=== PATIENT | male | born 1980 | race Caucasian/White ===

== ENCOUNTER → 2020-06-20 10:36 | Outpatient (CLI) | payer OTHER, SELFPAY ==
--- NOTE | 2020-06-20 11:20 | MR_ITS ---
PROCEDURE: MR PELVIS W CON CLINICAL INDICATION: INFLAMMATORY ARTHROPATHY PT STATES HE HAS RHEUMATOID ARTHRITIS, SWELLING IN LOWER BACK. BEST IMAGES POSSIBLE VERY LARGE PATIENT 30ML PROHANCE INJECTED COMPARISON: No exams were available for comparison TECHNIQUE: Routine multiplanar multi echo sequences are performed without and with gadolinium enhancement. FINDINGS: The exam is performed with emphasis on the SI joints. The SI joints have an unremarkable appearance. No lytic or blastic change is evident. No abnormal areas of enhancement. No evidence of SI fusion. No abnormal enhancement of the sacroiliac joints. No fracture apparent. No adjacent pre sacral masses. IMPRESSION: Negative MRI of the SI joints without and with contrast Dictated by: Davin Romo MD 06/21/2020 09:24 Davin Romo MD in [place] 06/21/2020 09:24
== END ==
PROVIDERS: PCP Family Medicine; Visit Provider Internal Medicine
DX: M19.90 Unspecified osteoarthritis, unspecified site (principal); M54.5 Low back pain
CPT/HCPCS: 72196; A9576

== ENCOUNTER → 2020-07-05 14:20 | Outpatient (POV) | payer OTHER, SELFPAY ==
[2020-07-05 15:15] VITALS: BP 152/108; PULSE 87; RESP 22; TEMP 36.8; O2SAT 97; BMI 49.2
--- NOTE | 2020-07-05 16:19 | HMH.PMCON ---
Assessment and Plan (1) Rheumatoid arthritis Current visit: Yes Status: Chronic Category: Medical Code(s): M06.9 - Rheumatoid arthritis, unspecified - Assessment and plan all Dx Assessment and Plan for all problems:: Unfortunately, the patient I did discuss that we will not be able to provide any type of oral medications. The patient does not feel injective therapy would be beneficial to him as his pain is not primarily in his spine. I do not feel that implanted devices would be beneficial to his pain. I did discuss the plan of care with Dr. Quinones, and he is in agreement that we are unable to provide any type of oral medications at this time. I have discussed the options with the patient of possible oral medications with other pain management clinics. Patient has been advised he can contact the clinic if he does develop pain primarily from his spine. He is in agreement. Will discuss possible oral opiate options with his primary care provider and get a referral to possible pain management centers in [facility]. The patient and I specifically discussed risk factors for COVID19. These risks include, but are not limited to age greater than 60, heart or lung disease, diabetes, immunosuppression, and travel. We also discussed NSAIDs may worsen COVID19 infection or symptoms. Patient should not use NSAIDs to treat COVID19 signs or symptoms. Patient was also informed that any type of corticosteroid of any form (oral or injection) will decrease the patient's immune system response and may increase the likelihood of COVID19 infection and symptoms[address] Dr. Quinones has reviewed this note and agrees with this plan of care. This note was dictated using voice recognition software and make contain errors or omissions. HPI - Data of Consult Patient: new to practice Consult date: 07/05/20 Requesting Physician: Tanisha Munoz APRN Primary Care Provider: Nacho Bronson MD - Consult Narrative Reason for consult: Rheumatoid arthritis History of present illness: Mr. Milton is a 39 year old male presents today for consultation for rheumatoid arthritis. Patient has chronic pain throughout his entire body. He is followed by [facility]. Patient says that he has tried multiple modalities of therapy which include physical therapy along with different types of anti-inflammatories. Patient says he is taken Celebrex at this time with no relief. He is tried meloxicam which caused him to has severe nausea and vomiting. He is also tried methotrexate for which she is taking at this time. Patient says he has taken anti-inflammatories in the past which caused him to have GI bleeding as well as bleeding from his orbital areas. Patient says that he has pain so severe that he is unable to wear clothing most days due to the pain. He rates his pain an 8 out of 10 to his entire body. He says that his pain is not in his spine but rather the rest of his body. Patient says movement does not change the pain. He describes the pain as aching, throbbing and constant. CC: Tanisha Munoz APRN [facility] History I have reviewed the patient's past medical history: Yes Medical History: Reports:: Hypertension Denies:: Cancer, Diabetes Mellitus Type 1, Diabetes Mellitus Type 2, MRSA *Have you ever received a pneumonia vaccine?: No *Have you received a flu vaccine this season?: No Other Medical History: Reports: Arthritis (rheumatoid) Laterality Cases: Left: Other Other Surgeries: Yes: Cholecystectomy Amputation: No Fractures: Yes (left leg) - *Social History Last grade of school completed: High school graduate Smoking Status: Current every day smoker Tobacco Type: cigarettes # Packs/Day (cigarettes): 1 Alcohol Intake: never Alcohol Intake Frequency:: holidays/special occasions only *Occupational Status:: unemployed Housing: house Household Members: family *Travel in the last 8 weeks: None Family Hx:: Asthma, Hypertension, Diabetes, Hyperlipidemia, Stroke,
== END ==
PROVIDERS: PCP Family Medicine; Visit Provider Clinical Nurse Specialist Family Health
DX: M06.9 Rheumatoid arthritis, unspecified (principal)
CPT/HCPCS: 99202

== ENCOUNTER 2020-08-25 09:50 | Emergency (ER) | payer OTHER, SELFPAY ==
[2020-08-25] VITALS (7 sets, daily range): BP systolic 125–179; BP diastolic 84–114; PULSE 77–102; RESP 18–24; TEMP 36.6–37; O2SAT 93–98; BMI 47.2
--- NOTE | 2020-08-25 09:43 | ECG_ITS ---
APPROVED REPORT Exam: Resting ECG HR:95 bpm ECG Measurements Heart Rate 95 AXES NV 152 P 46 QRSd 86 QRS 28 QT 336 T 63 QTc 422 Conclusion Normal sinus rhythm Normal ECG Electronically signed by : Luis Albarran, 08/26/2020 06:26:11
--- NOTE | 2020-08-25 09:52 | CT_ITS ---
PROCEDURE: CT ANGIO CHEST CLINCIAL INDICATION: chest pain /back pain Elevated white blood cell count COMPARISON: CT CHW CT CHEST W/ CONTRAST from 01/01/2015 CR XR CHEST PORTABLE from 08/25/2020 TECHNIQUE: IV Contrast: 70ML Isovue 370 Axial images obtained with sagittal and coronal reformats. All CT scans at the facility use one or more dose reduction, viz: automated exposure control, ma/kV adjustment per patient size (including targeted exams where dose is matched to indication, i.e. head), or iterative reconstruction technique. FINDINGS: HEART AND MEDIASTINAL STRUCTURES: No evidence of aortic dissection or aneurysm. No central pulmonary embolus. There is minimal ectasia of the main pulmonary artery at 3 cm. LUNGS AND PLEURAL SPACES: There is some minimal atelectatic change in the right lower lobe. No lobar consolidation or collapse. There is a noncalcified nodule in the right upper lobe at 6 mm not significantly changed. The. No pleural effusions.. Left hemidiaphragm is slightly elevated BONY STRUCTURES: No acute bony findings UPPER ABDOMEN: Fatty liver. Prior cholecystectomy. ADDITIONAL FINDINGS: No other significant abnormalities. IMPRESSION: 1. No acute finding. No evidence of aortic aneurysm dissection or central pulmonary embolus. 2. Mild right lower lobe atelectasis. Dictated by: Davin Romo MD 08/25/2020 11:13 Davin Romo MD in [place] 08/25/2020 11:13
--- NOTE | 2020-08-25 09:57 | HMH.EDCP ---
ED Disposition Clinical Impression: Rheumatoid arthritis flare, Pleuritic chest pain Cellulitis Qualifiers: Site of cellulitis: trunk Site of cellulitis of trunk: back Qualified Code(s): L03.312 - Cellulitis of back [any part except buttock] Disposition: Home, Self-Care Condition on Discharge: Good Prescriptions: Sulfamethoxazole/Trimethoprim [Bactrim DS tablet] 1 each PO BID 5 Days #10 tab Transmission Status: Pending to [facility] cephALEXin [Cephalexin 500mg Tab] 500 mg PO Q6H 5 Days #20 tab [facility]: [facility] predniSONE [Prednisone 20mg Tab] 20 mg PO DAILY 4 Days #4 tab Transmission Status: [facility] Referrals: PCP,No [Primary Care Provider] - - Critical Care Critical Care Time: No Attestation: On 08/25/20, the high probability of a clinically significant, sudden or life threatening deterioration of the following system(s) required my full and direct attention, intervention and personal management. The time I documented below is in addition to time spent performing reported procedures but includes the following listed in this critical care notation. Medical Decision Making - Medical Records Medical records reviewed: Yes: I reviewed the patient's medical records. MR Comment: Rheumatoid arthritis with hx of chronic pain on celebrex seen in pain clinic last month. Also recently started on methotrexate two months ago and course of prednisone last week. - Perry Inquiry Pt receiving controlled substance: No Vital Signs: 08/25/20 09:52 08/25/20 10:06 08/25/20 11:27 Temperature 98.6 F Temperature Source Oral Pulse Rate [Radial] 102 H 92 H 83 Respiratory Rate 24 22 Blood Pressure [Right Arm] 179/114 H 143/111 H 148/84 H Blood Pressure Mean [Right Arm] 135 121 105 Blood Pressure Source [Right Arm] Automatic Cuff Automatic Cuff Blood Pressure Position [Right Arm] Sitting Sitting Sitting 02 Sat by Pulse Oximetry 98 94 L 93 L Oxygen Delivery Method Room Air Room Air Room Air 08/25/20 12:00 08/25/20 13:11 08/25/20 13:53 Temperature Temperature Source Pulse Rate [Radial] 77 81 81 Respiratory Rate Blood Pressure [Right Arm] 161/90 H 125/84 133/86 Blood Pressure Mean [Right Arm] 113 97 101 Blood Pressure Source [Right Arm] Automatic Cuff Automatic Cuff Automatic Cuff Blood Pressure Position [Right Arm] Sitting Sitting Sitting 02 Sat by Pulse Oximetry 93 L 93 L 94 L Oxygen Delivery Method Room Air Room Air Room Air - Lab Data Lab Results 08/25/20 09:35: Total Bilirubin 0.4, Direct Bilirubin 0.1, Conjugated Bilirubin 0.0, Indirect Bilirubin 0.3, Unconjugated Bilirubin 0.3, AST 44, ALT 70, Alkaline Phosphatase 102, Total Protein 7.8, Albumin 4.4 08/25/20 09:55: WBC 26.9 H*, RBC 5.28, Hgb 15.8, Hct 47.4, MCV 89.8, MCH 29.9, MCHC 33.3, RDW 15.9, Plt Count 403, MPV 7.7, Neut % (Auto) 81.5 H, Lymph % (Auto) 12.9, Trego % (Auto) 3.7, Eos % (Auto) 1.5, Baso % (Auto) 0.3, Neut # (Auto) 21.9 H, Lymph # (Auto) 3.5, Trego # (Auto) 1.0, Eos # (Auto) 0.4, Baso # (Auto) 0.1, Total Counted 100, Neutrophils % (Manual) 76, Lymphocytes % (Manual) 16, Monocytes % (Manual) 7, Eosinophils % (Manual) 1, Platelet Estimate Normal, RBC Morphology Normal 08/25/20 09:55: Sodium 136, Potassium 3.7, Chloride 101, Carbon Dioxide 26, Anion Gap 12.7, BUN 15, Creatinine 0.90, Estimated Creat Clear 120, Estimated GFR 93, Est GFR ( Amer) 113, Glucose 120 H, Calcium 9.2, Troponin I < 0.01, C-Reactive Protein 11.7 H 08/25/20 13:00: Troponin I < 0.01 Result diagrams: 08/25/20 09:55 08/25/20 09:55 Orders (Tests/Meds): ED MEDICATIONS Discontinued Medications Generic Name Dose Route Start Last Admin Trade Name Freq PRN Reason Stop Dose Admin Acetaminophen 1,000 mg 08/25/20 10:06 08/25/20 10:11 Acetaminophen 500mg Tab PO 08/25/20 10:07 1,000 mg ONCE ONE Administration Fentanyl Citrate 50 mcg 08/25/20 10:06 08/25/20 10:18 Brett
--- NOTE | 2020-08-25 10:00 | XR_ITS ---
PROCEDURE: XR CHEST PORTABLE CLINICAL HISTORY: chest pain COMPARISON: CR CXR1 CHEST-PORTABLE from 01/13/2013 CR CXR1 CHEST-PORTABLE from 01/01/[address] ANGIO CHEST from 08/25/2020 FINDINGS: The cardiomediastinal silhouette and pulmonary vascularity are within normal limits. There are low lung volumes. Increased markings are present in the right lung base may be related to underlying atelectasis. Chest CT did not demonstrate any infiltrate in this area. No acute bony abnormalities. IMPRESSION: Suspect atelectatic change and vascular crowding right lung base Dictated by: Davin Romo MD 08/25/2020 11:23 Davin Romo MD in [place] 08/25/2020 11:23
[2020-08-25 10:17] LABS: Basophils # 0.1 K/mm3 (0-0.2); Basophils % 0.3 % (0.1-2.0); Eosinophils # 0.4 K/mm3 (0.0-0.4); Eosinophils % 1.5 % (0.1-12.0); Hematocrit 47.4 % (42.0-52.0); Hemoglobin 15.8 g/dL (14.1-18.0); Lymphocytes # 3.5 K/mm3 (0.7-4.5); Lymphocytes % 12.9 % (10-50); Mean Corpuscular HGB Conc 33.3 g/dL (31.8-35.4); Mean Corpuscular Hemoglobin 29.9 pg (27.0-31.2); Mean Corpuscular Volume 89.8 fl (80-94); Mean Platelet Volume 7.7 fl (7.4-10.4); Monocytes % 3.7 % (1.7-9.3); Neutrophils # 21.9 K/mm3 (1.8-7.8); Neutrophils % 81.5 % (37.0-80.0); Platelet Count 403 K/mm3 (142-424); Red Blood Count 5.28 M/mm3 (4.60-6.20); Red Cell Distribution Width 15.9 % (11.5-17.5); White Blood Count 26.9 K/mm3 (4.8-10.8)
[2020-08-25 10:18] LABS: Chloride 101 mmol/L (98-107); Sodium 136 mmol/L (136-145)
[2020-08-25 10:19] LABS: Potassium 3.7 mmoL/L (3.5-5.1)
[2020-08-25 10:20] LABS: MANUAL DIFFERENTIAL MANUAL DIFFERENTIAL (MANUAL DIFF)
[2020-08-25 10:21] LABS: Blood Urea Nitrogen 15 mg/dl (9-20); Creatinine Clearance Estimated 120 mL/min (50-200); Estimated Glomerular Filt Rate 93 ml/min (>60); GFR (African American) 113 ML/MIN (>60)
[2020-08-25 10:22] LABS: Anion Gap 12.7 mEq/L (5-15); Calcium 9.2 mg/dl (8.4-10.2); Carbon Dioxide 26 mmol/L (22.0-30.0); Glucose 120 mg/dl (74-100)
[2020-08-25 10:27] LABS: C-Reactive Protein 11.7 mg/L (0-4)
[2020-08-25 10:30] LABS: Eosinophils % 1 % (0-3); Lymphocytes % 16 % (10-50); Monocytes % 7 % (2-9); Neutrophils % 76 % (42-76); Platelet Estimate Normal; RBC Morphology Normal; Total Cells Counted 100
[2020-08-25 10:38] LABS: Troponin I < 0.01 ng/ml (0.00-0.034)
--- NOTE | 2020-08-25 10:53 | PC.NURSE ---
at bedside doing bedside US.
[2020-08-25 13:37] LABS: Troponin I < 0.01 ng/ml (0.00-0.034)
[2020-08-25 13:57] LABS: Bilirubin,Unconjugated 0.3 mg/dL (0.0-1.1)
[2020-08-25 13:58] LABS: Alanine Aminotransferase 70 U/L (12-78); Albumin Level 4.4 g/dl (3.5-5.0); Alkaline Phosphatase 102 U/L (38-126); Aspartate Amino Transferase 44 U/L (17-59); Bilirubin,Direct 0.1 mg/dl (0.0-0.4); Bilirubin,Indirect 0.3 mg/dL (0.0-0.9); Bilirubin,Total 0.4 mg/dl (0.2-1.3); Total Protein,Serum 7.8 g/dl (6.3-8.2)
== END 2020-08-25 14:13 | disposition home or self-care (01) ==
PROVIDERS: Emergency Provider Student in an Organized Health Care Education/Training Program
DX: M06.9 Rheumatoid arthritis, unspecified (principal); R07.81 Pleurodynia; L03.312 Cellulitis of back [any part except buttock and flank]; I10 Essential (primary) hypertension; F17.210 Nicotine dependence, cigarettes, uncomplicated; Z90.49 Acquired absence of other specified parts of digestive tract; Z79.899 Other long term (current) drug therapy
CPT/HCPCS: 71045; 71275; 80048; 80076; 84484; 85007; 85025; 86140; 93005; 96374; 96375; 99283; Q9967

== ENCOUNTER 2020-08-31 08:26 | Emergency (ER) | payer OTHER, SELFPAY ==
--- NOTE | 2020-08-31 | MR_ITS ---
PROCEDURE: MR CERVICAL SPINE WO CON CLINICAL INDICATION: PT HAS RA AND C/O BACK PAIN Bilateral shoulder pain, history of rheumatoid arthritis with swelling COMPARISON: No exams were available for comparison TECHNIQUE: Standard multiplanar multiecho sequences are performed without contrast. 3-D MIP and myelographic images are also rendered and reviewed FINDINGS: There is normal alignment. There is straightening of the cervical lordosis which could be due to patient positioning or muscle spasm. The craniocervical junction has an unremarkable appearance. The C1-C2 junction has an unremarkable appearance. No evidence atlantoaxial subluxation or pannus formation at the C1-C2 junction. There is mild prominence of the posterior longitudinal ligament from C2 to C4-5. This is nonspecific and without impingement. No disc herniation, canal stenosis, or significant foraminal stenosis is evident at C1-C2-C2-C3 C3-C4 or C4-C5. C5-C6: Mild degenerative disc disease. There is a small left-sided foraminal disc protrusion/disc osteophyte complex causing mild left-sided foraminal narrowing. C6-C7: Minimal bulging disc with minimal right paracentral disc protrusion without impingement C7-T1: Unremarkable. There is a small area of decreased T1 and increased T2 signal at the tip of the spinous process of T1 which could be due to some mild local inflammatory changes. No epidural mass or abscess is evident. No evidence of discitis. The cervical cord has an unremarkable appearance. IMPRESSION: 1. Mild cervical spondylosis. Please see above for detailed description at each level. 2. There is an 8 mm area of isointense T1 and increased T2 signal along the posterior aspect of the spinous process of T1 which could represent some focal inflammatory change. No epidural abscess, discitis, or other significant anomaly evident. Dictated by: Davin Romo MD 08/31/2020 14:05 Davin Romo MD in [place] 08/31/2020 14:05
[2020-08-31 08:27] VITALS: BP 136/91; PULSE 105; RESP 38; TEMP 37.3; O2SAT 98; BMI 48.8
--- NOTE | 2020-08-31 08:51 | HMH.EDGENADL ---
ED Disposition Clinical Impression: Thoracic back pain Qualifiers: Chronicity: chronic Back pain laterality: midline Qualified Code(s): M54.6 - Pain in thoracic spine Disposition: Home, Self-Care Condition on Discharge: Fair Additional Instructions: Increase prednisone to 40 mg a day until seen by Dr. Bronson next week. Tramadol as needed for pain. Additional instructions for CONTROLLED SUBSTANCES: You have been prescribed a medication that is a controlled substance. Controlled substances include pain medications known as opiates and sedative nerve medications known as benzodiazepines. Tramadol, fioricet, and gabapentin are also controlled substances. Some common opiates include: Codeine (such as Tylenol #3) Hydrocodone (Vicodin, Lortab, Lorcet, Fairlee) Oxycodone (Percocet, Percodan, Oxycodone, Oxy IR) Some common benzodiazepines include: Diazepam (Valium) Lorazepam (Ativan) Alprazolam (Xanax) Clonazepam (Klonopin) Oxazepam (Serax) All of these controlled substances are highly addictive and frequently abused. Misuse can and frequently does lead to addiction as well as overdose and . Medication should be stored in a locked cabinet or other secure storage unit. Do not store the medication in a motor vehicle. Short term supplies, 3 days or less, are prescribed because of the highly addictive nature of the medication. Any of the controlled substance medication NOT taken should be disposed of properly and NOT SAVED. The recommended method of disposing of unused medications is: Place the medicines in a sealable plastic bag. If the medicine is a solid, crush it or add water to dissolve it. Add something undesirable (cat litter, coffee grounds, etc.) Dispose of sealed bag in household trash Do not flush or pour unused medicines down a sink or drain. Controlled substances should not be shared, given away or sold. Because of the addictive nature and frequent abuse, these medications are sometimes stolen. These medications should be kept in a safe place where they cannot be stolen. Do not keep them in your car or purse. Lost or stolen prescriptions for controlled substances WILL NOT BE REFILLED in this emergency department, regardless of whether a police report was filed. Prescriptions: predniSONE [Prednisone 20mg Tab] 20 mg PO BID #10 tab Transmission Status: Received by [facility] Tramadol HCl [Tramadol 50mg Tab] 50 mg PO TIDP PRN #15 tab PRN Reason: Moderate Pain Transmission Status: Received by [facility] Referrals: Nacho Bronson MD [Primary Care Provider] - - Critical Care Critical Care Time: No Attestation: On 08/31/20, the high probability of a clinically significant, sudden or life threatening deterioration of the following system(s) required my full and direct attention, intervention and personal management. The time I documented below is in addition to time spent performing reported procedures but includes the following listed in this critical care notation. Medical Decision Making - Medical Records Medical records reviewed: Yes: I reviewed the patient's medical records. MR Comment: I reviewed patient's rheumatology consultation on [facility] portal. He also had skeletal survey x-rays done there in May, results reviewed. MR results from this facility reviewed. Emergency department visit from 08/25/2020 reviewed. - Perry Inquiry Pt receiving controlled substance: Yes Perry was queried for this patient: Yes Reference #:: [id number] Risks and benefits of using a controlled substance: were discussed with pt by me Comment: 0 rxs. Vital Signs: 08/31/20 08:27 08/31/20 10:19 08/31/20 10:46 Temperature 99.1 F Temperature Source Oral Pulse Rate Pulse Rate [Radial] 105 H 101 H 98 H Respiratory Rate 38 H Blood Pressure Blood Pressure [Right Arm] 136/91 H 125/91 H 129/93 H Blood Pressure Mean [Right Arm] 106 102 105 B
--- NOTE | 2020-08-31 09:13 | PC.NURSE ---
speaking with , pt RA doctor at [facility]
--- NOTE | 2020-08-31 09:21 | PC.NURSE ---
MRI contacted due to pt consistent back thoracic pain and elevated white blood count. Radha in MRI states she will call back to update with a time for MRI
--- NOTE | 2020-08-31 09:28 | PC.NURSE ---
Deanna from MRI called advising it would be approx 12 pm when they could get pt worked in . if something came up sooner they will call.
[2020-08-31 09:42] LABS: Basophils # 0.1 K/mm3 (0-0.2); Basophils % 0.5 % (0.1-2.0); Eosinophils # 0.5 K/mm3 (0.0-0.4); Hematocrit 48.9 % (42.0-52.0); Hemoglobin 15.9 g/dL (14.1-18.0); Lymphocytes # 3.2 K/mm3 (0.7-4.5); Mean Corpuscular HGB Conc 32.5 g/dL (31.8-35.4); Mean Corpuscular Hemoglobin 29.6 pg (27.0-31.2); Mean Corpuscular Volume 91.1 fl (80-94); Mean Platelet Volume 7.1 fl (7.4-10.4); Monocytes # 0.9 K/mm3 (0.1-1.0); Monocytes % 3.8 % (1.7-9.3); Neutrophils # 18.3 K/mm3 (1.8-7.8); Neutrophils % 79.7 % (37.0-80.0); Platelet Count 402 K/mm3 (142-424); Red Blood Count 5.37 M/mm3 (4.60-6.20); Red Cell Distribution Width 15.8 % (11.5-17.5)
[2020-08-31 09:43] LABS: MANUAL DIFFERENTIAL MANUAL DIFFERENTIAL (MANUAL DIFF)
--- NOTE | 2020-08-31 09:45 | PC.NURSE ---
pt updated on plan of care
[2020-08-31 09:49] LABS: Chloride 98 mmol/L (98-107); Sodium 136 mmol/L (136-145)
[2020-08-31 09:50] LABS: Potassium 3.6 mmoL/L (3.5-5.1)
[2020-08-31 09:52] LABS: Alanine Aminotransferase 57 U/L (12-78); Albumin Level 4.3 g/dl (3.5-5.0); Albumin/Globulin Ratio 1.3 (1.1-1.8); Alkaline Phosphatase 113 U/L (38-126); Anion Gap 13.6 mEq/L (5-15); Aspartate Amino Transferase 32 U/L (17-59); Bilirubin,Total 0.5 mg/dl (0.2-1.3); Blood Urea Nitrogen 13 mg/dl (9-20); Carbon Dioxide 28 mmol/L (22.0-30.0); Creatinine Clearance Estimated 108 mL/min (50-200); Estimated Glomerular Filt Rate 83 ml/min (>60); GFR (African American) 100 ML/MIN (>60); Globulin 3.4 g/dL (1.3-3.2); Total Protein,Serum 7.7 g/dl (6.3-8.2)
[2020-08-31 09:53] LABS: Calcium 9.2 mg/dl (8.4-10.2); Glucose 111 mg/dl (74-100)
[2020-08-31 09:59] LABS: C-Reactive Protein 42.6 mg/L (0-4)
[2020-08-31 10:07] LABS: Lactic Acid 1.5 mmol/L (0.7-2.1)
[2020-08-31 10:16] LABS: Eosinophils % 2 % (0-3); Lymphocytes % 22 % (10-50); Monocytes % 2 % (2-9); Neutrophils % 69 % (42-76); Platelet Estimate Normal; RBC Morphology Normal; Total Cells Counted 100
[2020-08-31 10:19] VITALS: BP 125/91; PULSE 101
[2020-08-31 10:46] VITALS: BP 129/93; PULSE 98; O2SAT 98
[2020-08-31 10:54] LABS: Erythrocyte Sedimentation Rate 9 mm/hr (0-15)
--- NOTE | 2020-08-31 11:00 | MR_ITS ---
PROCEDURE: MR THORACIC SPINE WO CON CLINICAL INDICATION: BACK PAIN back pain, history rheumatoid arthritis with focal pain and tenderness posteriorly COMPARISON: No exams were available for comparison TECHNIQUE: Routine multiplanar multi echo sequences are performed without gadolinium enhancement. FINDINGS: There is normal alignment. No acute fracture or dislocation is evident. Normal signal intensity is present within the vertebra. There is a small focal area of increased T2 signal along the posterior aspect of the spinous process of T1 which could be due to small area inflammatory change. There are mild degenerative changes in the thoracic spine from T4-T11. No acute fracture or dislocation is evident. The axial images suggest a small central disc protrusion at T5-T6. This however is not confirmed on the sagittal images and may be artifactual in nature. There is a small left paracentral disc protrusion at T6-T7 confirmed on both axial and sagittal images causing some minimal anterior impingement upon the cord. There is a tiny right paracentral disc protrusion at T7-T8 also causing some minimal anterior impingement upon the cord. The spinal cord itself has an unremarkable appearance. The IMPRESSION: 1. Mild multilevel thoracic spondylosis. Please see above for detailed description at each level. 2. Small focal area of increased T2 signal along the posterior aspect of the spinous process of T1 suggesting a small area of inflammatory change or cystic involvement. 3. Questionable small broad-based central disc protrusion at T5-T6 versus artifact without impingement. 4. Small left paracentral disc protrusion T6-T7. 5. Minimal right paracentral disc protrusion at T7-T8 Dictated by: Davin Romo MD 08/31/2020 14:16 Davin Romo MD in [place] 08/31/2020 14:16
[2020-08-31 11:35] VITALS: BP 105/58; PULSE 90; O2SAT 98
--- NOTE | 2020-08-31 12:04 | PC.NURSE ---
Pt to MRI
--- NOTE | 2020-08-31 13:39 | PC.NURSE ---
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
--- NOTE | 2020-08-31 14:48 | PC.NURSE ---
dR Ascencio SPOKE WITH dR Dickey ABOUT PT.
[2020-08-31 14:59] VITALS: BP 130/90; PULSE 92; RESP 20; TEMP 37.3; O2SAT 99
== END 2020-08-31 15:00 | disposition home or self-care (01) ==
PROVIDERS: Emergency Provider Emergency Medicine; PCP Family Medicine
DX: M54.6 Pain in thoracic spine (principal); R07.9 Chest pain, unspecified; M06.9 Rheumatoid arthritis, unspecified; I10 Essential (primary) hypertension; F17.210 Nicotine dependence, cigarettes, uncomplicated; Z79.899 Other long term (current) drug therapy
CPT/HCPCS: 72141; 72146; 76376; 80053; 83605; 85007; 85025; 85651; 86140; 87040; 96374; 96375; 96376; 99284; J2405

== ENCOUNTER → 2020-10-02 09:42 | Outpatient (CLI) | payer OTHER, SELFPAY ==
[2020-10-02 10:26] LABS: Chloride 102 mmol/L (98-107); Potassium 3.3 mmoL/L (3.5-5.1); Sodium 138 mmol/L (136-145)
[2020-10-02 10:29] LABS: Alanine Aminotransferase 56 U/L (12-78); Albumin Level 4.4 g/dl (3.5-5.0); Albumin/Globulin Ratio 1.5 (1.1-1.8); Alkaline Phosphatase 110 U/L (38-126); Anion Gap 11.3 mEq/L (5-15); Aspartate Amino Transferase 43 U/L (17-59); Bilirubin,Total 0.5 mg/dl (0.2-1.3); Blood Urea Nitrogen 16 mg/dl (9-20); Calcium 9.7 mg/dl (8.4-10.2); Carbon Dioxide 28 mmol/L (22.0-30.0); Estimated Glomerular Filt Rate 83 ml/min (>60); GFR (African American) 100 ML/MIN (>60); Glucose 93 mg/dl (74-100); Total Protein,Serum 7.4 g/dl (6.3-8.2)
== END ==
PROVIDERS: Visit Provider Internal Medicine
DX: Z79.899 Other long term (current) drug therapy (principal)
CPT/HCPCS: 36415; 80053

== ENCOUNTER → 2020-11-24 11:14 | Outpatient (CLI) | payer OTHER, SELFPAY ==
[2020-11-24 12:41] LABS: Alanine Aminotransferase 44 U/L (12-78); Albumin Level 4.1 g/dl (3.5-5.0); Albumin/Globulin Ratio 1.2 (1.1-1.8); Alkaline Phosphatase 99 U/L (38-126); Anion Gap 15.4 mEq/L (5-15); Aspartate Amino Transferase 42 U/L (17-59); Bilirubin,Total 0.6 mg/dl (0.2-1.3); Blood Urea Nitrogen 11 mg/dl (9-20); Carbon Dioxide 28 mmol/L (22.0-30.0); Chloride 101 mmol/L (98-107); Estimated Glomerular Filt Rate 107 ml/min (>60); GFR (African American) 129 ML/MIN (>60); Globulin 3.3 g/dL (1.3-3.2); Glucose 96 mg/dl (74-100); Potassium 3.4 mmoL/L (3.5-5.1); Sodium 141 mmol/L (136-145); Total Protein,Serum 7.4 g/dl (6.3-8.2)
== END ==
PROVIDERS: Visit Provider Internal Medicine
DX: Z79.899 Other long term (current) drug therapy (principal)
CPT/HCPCS: 36415; 80053

== ENCOUNTER → 2020-12-22 10:57 | Outpatient (CLI) | payer OTHER, SELFPAY ==
[2020-12-22 12:12] LABS: Alanine Aminotransferase 67 U/L (12-78); Albumin/Globulin Ratio 1.3 (1.1-1.8); Alkaline Phosphatase 108 U/L (38-126); Anion Gap 8.7 mEq/L (5-15); Aspartate Amino Transferase 47 U/L (17-59); Bilirubin,Total 0.5 mg/dl (0.2-1.3); Blood Urea Nitrogen 9 mg/dl (9-20); Carbon Dioxide 25 mmol/L (22.0-30.0); Chloride 108 mmol/L (98-107); Estimated Glomerular Filt Rate 124 ml/min (>60); GFR (African American) 150 ML/MIN (>60); Glucose 97 mg/dl (74-100); Potassium 3.7 mmoL/L (3.5-5.1); Sodium 138 mmol/L (136-145)
== END ==
PROVIDERS: Visit Provider Internal Medicine
DX: Z79.899 Other long term (current) drug therapy (principal)
CPT/HCPCS: 36415; 80053

== ENCOUNTER → 2021-02-15 09:03 | Outpatient (CLI) | payer OTHER, SELFPAY ==
[2021-02-15 10:24] LABS: Chloride 102 mmol/L (98-107); Sodium 137 mmol/L (136-145)
[2021-02-15 10:26] LABS: Alanine Aminotransferase 44 U/L (12-78); Alkaline Phosphatase 108 U/L (38-126); Aspartate Amino Transferase 34 U/L (17-59); Bilirubin,Total 0.8 mg/dl (0.2-1.3); Blood Urea Nitrogen 13 mg/dl (9-20); Estimated Glomerular Filt Rate 124 ml/min (>60); GFR (African American) 150 ML/MIN (>60)
[2021-02-15 10:27] LABS: Albumin Level 4.3 g/dl (3.5-5.0); Albumin/Globulin Ratio 1.5 (1.1-1.8); Calcium 9.3 mg/dl (8.4-10.2); Carbon Dioxide 27 mmol/L (22.0-30.0); Globulin 2.8 g/dL (1.3-3.2); Glucose 87 mg/dl (74-100); Total Protein,Serum 7.1 g/dl (6.3-8.2)
== END ==
PROVIDERS: Visit Provider Internal Medicine
DX: Z79.899 Other long term (current) drug therapy (principal)
CPT/HCPCS: 36415; 80053

== ENCOUNTER 2021-06-27 16:00 | Outpatient (RCR) | payer OTHER, SELFPAY | END 2021-06-27 16:05 | disposition home or self-care (01) | LOC: PT 16:00 | PROVIDERS: PCP Family Medicine; Visit Provider Family Medicine Sports Medicine | DX: M51.36 Other intervertebral disc degeneration, lumbar region (principal); M79.18 Myalgia, other site | CPT/HCPCS: 97010; 97012; 97014; 97110; 97163; G0283 ==

== ENCOUNTER 2021-08-25 15:56 | Emergency (ER) | payer OTHER, SELFPAY ==
[2021-08-25 15:57] VITALS: BP 161/100; PULSE 90; RESP 18; TEMP 36.7; O2SAT 100; BMI 50.5
--- NOTE | 2021-08-25 16:31 | HMH.EDGENADL ---
ED Disposition Clinical Impression: Laceration Disposition: Home, Self-Care Condition on Discharge: Good Instructions: DI for Laceration Repair Referrals: Nacho Bronson MD [Primary Care Provider] - - Critical Care Critical Care Time: No Attestation: On 08/25/21, the high probability of a clinically significant, sudden or life threatening deterioration of the following system(s) required my full and direct attention, intervention and personal management. The time I documented below is in addition to time spent performing reported procedures but includes the following listed in this critical care notation. Medical Decision Making - Medical Records Medical records reviewed: Yes: I reviewed the patient's medical records. - Perry Inquiry Pt receiving controlled substance: No Vital Signs: 08/25/21 15:57 Temperature 98.1 F Temperature Source Oral Pulse Rate [Left Radial] 90 Respiratory Rate 18 Blood Pressure [Right Arm] 161/100 H Blood Pressure Mean [Right Arm] 120 Blood Pressure Source [Right Arm] Automatic Cuff Blood Pressure Position [Right Arm] Sitting 02 Sat by Pulse Oximetry 100 Oxygen Delivery Method Room Air Medical Decision Narrative: Patient is a 40-year-old male presents ED today for left forearm laceration. Patient is well-appearing on initial evaluation no acute distress, with a 6 cm laceration to the left dorsal forearm. Will perform laceration repair patient's tetanus is up-to-date, this laceration is not deep, only above the subcutaneous layer there is no fat or muscle exposed, I have low concern for tendon injury or deep space injury, this is a clean metal gael piece, not rested, however tetanus is up-to-date we did not need to reapply. Patient does not require antibiotic prophylaxis, I discussed with the patient wound care management at home for laceration repaired with absorbable stitches and he has verbalized understanding, specifically discussed evidence of infection, wound dehiscence, evidence of numbness weakness or tingling of the fingers and weakness of the muscles that does not patient is to return. General Adult HPI - General Chief complaint: Wound/Laceration Stated complaint: AO 08/25 @1500 lac to L arm Time Seen by Provider: 08/25/21 16:15 Mode of Arrival: Ambulatory Limitations: No Limitations Description of Symptoms (Recalled from ER Triage Doc. by RN): cut left FA on a piece of metal tin - History of Present Illness HPI narrative: Mr. Milton is a 40-year-old male has history of rheumatoid arthritis presents the ED today for further evaluation after a cut to his left forearm. Patient states that he was making a dollhouse, states that he cut accidentally on some cleaning of metal tin gael. Patient states he applied a towel to the area, presents to the ED today for further evaluation of this. Patient states that his tetanus is up-to-date, states he has no other complaints at this time is otherwise well in no acute distress. - Related Data Previous Rx's Medication Instructions Recorded Sulfamethoxazole/Trimethoprim 1 each PO BID 5 Days #10 tab 08/25/20 [Bactrim DS tablet] cephALEXin [Cephalexin 500mg Tab] 500 mg PO Q6H 5 Days #20 tab 08/25/20 predniSONE [Prednisone 20mg 20 mg PO DAILY 4 Days #4 tab 08/25/20 Tab] Tramadol HCl [Tramadol 50mg 50 mg PO TIDP PRN #15 tab 08/31/20 Tab] predniSONE [Prednisone 20mg 20 mg PO BID #10 tab 08/31/20 Tab] Allergies Allergy/AdvReac Type Severity Reaction Status Date / Time morphine [MORPHINE] Allergy Unknown Verified 08/25/20 10:05 BEE STING Allergy Unknown Uncoded 01/13/19 10:32 [facility] History - Hepatitis A Screen Drug use history?: No High risk sexual behaviors?: No History of sexually transmitted infection?: No Currently employed?: No Childcare worker?: No Do you have indoor plumbing?: Yes Do you have electricity?: Yes Attestation statement:: This patient has been screened for Hepa
--- NOTE | 2021-08-25 16:49 | PC.NURSE ---
Stroke Alert called at this time per Sofía Justice RN
[2021-08-25 16:56] VITALS: BP 125/77; PULSE 85; RESP 18; TEMP 37; O2SAT 99
== END 2021-08-25 16:47 | disposition home or self-care (01) ==
PROVIDERS: Emergency Provider Student in an Organized Health Care Education/Training Program; PCP Family Medicine
DX: S51.812A Laceration without foreign body of left forearm, initial encounter (principal); W26.8XXA Contact with other sharp object(s), not elsewhere classified, initial encounter; Y92.89 Other specified places as the place of occurrence of the external cause; I10 Essential (primary) hypertension; F17.210 Nicotine dependence, cigarettes, uncomplicated
CPT/HCPCS: 12002; 99282

== ENCOUNTER → 2021-11-19 11:14 | Outpatient (POV) | payer OTHER, SELFPAY ==
[2021-11-19 11:51] VITALS: BP 136/90; PULSE 78; RESP 18; O2SAT 98; BMI 51.4
--- NOTE | 2021-11-21 06:06 | HMH.PMCON ---
Assessment and Plan (1) Degenerative disc disease, lumbar Status: Chronic Category: Medical Code(s): M51.36 - Other intervertebral disc degeneration, lumbar region (2) Lumbar radiculopathy Status: Chronic Category: Medical Code(s): M54.16 - Radiculopathy, lumbar region - Assessment and plan all Dx Assessment and Plan for all problems:: Patient has tried failed conservative therapies of physical therapy for more than 6 weeks and continues with home stretching. He has tried injective therapy which gave him minimal relief. Physical therapy made his pain worse. He has taken high doses of ibuprofen. He has also been on high doses of prednisone and has now been tapered to 5 mg/day. He would like to proceed with possible spinal cord stimulator trial. We will send him for psychological evaluation to determine if he is an appropriate candidate. He did see neurosurgery who did inform the patient that he was not likely neurosurgical candidate at this time. We will see him back after the psychological evaluation. Patient has been instructed to contact the clinic with any concerns before the next appointment. Dr. Quinones has reviewed this note and agrees with this plan of care. This note was dictated using voice recognition software and make contain errors or omissions. HPI - Data of Consult Patient: new to practice Consult date: 11/19/21 Requesting Physician: Tanisha Munoz APRN - Consult Narrative Reason for consult: Low back pain History of present illness: Mr. Milton is a 41 year old male who presents today for consultation for chronic low back pain. The patient does have rheumatoid arthritis and does see rheumatology. Patient says his pain is worse to his low back area with radiation into bilateral lower extremities. He says walking more than 10 minutes causes him to have significant pain to the point he does have to sit down. After sitting, he does get great relief. He says he feels as though his legs are going to give out . The legs do go numb on occasion causing him to fall. He is foot pain. He has had lumbar epidural steroid injections in the past with minimal relief. He has taken high doses of ibuprofen with minimal relief. He has also been placed on high doses of prednisone by both his heel shaper and primary care provider. Patient was unaware that he was not supposed to take both prescriptions and was taking more than 30 mg of prednisone at a time. As result, he did gain a great deal of weight. He feels this is contributed to a great deal of his pain. He is now trying to lose the excess weight. He has tried physical therapy for more than 6 weeks. The physical therapy was discontinued because of worsening pain. He does continue with home stretching. He is here today to discuss options for intrathecal therapy versus spinal cord stimulation. He does rate his pain a 7 out of 10. CC: Tanisha Munoz APRN [facility] History I have reviewed the patient's past medical history: Yes Medical History: Reports:: Hypertension Denies:: Cancer, Diabetes Mellitus Type 1, Diabetes Mellitus Type 2, MRSA *Have you ever received a pneumonia vaccine?: No *Have you received a flu vaccine this season?: No Other Medical History: Reports: Arthritis (rheumatoid) Laterality Cases: Left: Other Other Surgeries: Yes: Cholecystectomy Amputation: No Fractures: Yes (left leg) - *Social History Smoking Status: Current every day smoker Tobacco Type: cigarettes # Packs/Day (cigarettes): 1 Alcohol Intake: never Alcohol Intake Frequency:: holidays/special occasions only *Occupational Status:: unemployed Housing: other Household Members: other *Travel in the last 8 weeks: None Family Hx:: Asthma, Hypertension, Diabetes, Hyperlipidemia, Stroke, Heart Attack Review of Systems - Review of Systems Review of Systems General: No recent weight changes, no fever, no sleep disturbances Respiratory: No cough, no shortness of air, no re
== END ==
PROVIDERS: Visit Provider Clinical Nurse Specialist Family Health
DX: M51.16 Intervertebral disc disorders with radiculopathy, lumbar region (principal)
CPT/HCPCS: 99202; G0463

== ENCOUNTER 2022-01-24 08:42 | Day surgery (SDC) | payer OTHER, SELFPAY ==
[2022-01-24] VITALS (7 sets, daily range): BP systolic 124–156; BP diastolic 82–118; PULSE 74–94; RESP 17–20; TEMP 36.5–36.8; O2SAT 95–97; BMI 51.4
--- NOTE | 2022-01-24 11:11 | HMH.PMPROC ---
- Procedure Date: 01/24/22 Time: 11:11 Anesthesiologist:: Jose D Quinones MD Complications:: None Pre-procedure Diagnosis:: Degenerative disc disease of lumbar spine with lumbar radiculopathy symptoms Post-procedure Diagnosis:: Same Indications for Procedure:: This patient is a pleasant 41-year-old white male who we are treating for low back pain with lumbar radiculopathy symptoms. He has some increasing pain in his back radiating down both legs. He has failed all previous conservative therapy including injections, oral medications, physical therapy and he is not a surgical candidate. He presents for intrathecal pump trial today. Will be with intrathecal fentanyl 25 mcg. Procedure Details:: Pain pump trial Informed consent was obtained and the risk and benefits of the procedure was explained to the patient. The patient was taken to the procedure room and placed prone on the procedure table. Patient was prepped and draped in sterile fashion. C-arm fluoroscopy was used to view the lumbar spine. The skin and subcutaneous tissues were anesthetized using lidocaine. I placed a 18-gauge spinal needle into the L4-5 interspace and advanced until clear CSF was obtained. After this intrathecal catheter was inserted and advanced very easily to the L1 vertebral body. The needle was withdrawn. We were able to freely withdraw clear CSF through the catheter. We then injected intrathecal fentanyl single shot bolus of 25 mcg followed by saline and followed by the previous CSF that was withdrawn. The needle and catheter were then removed and a Band-Aid was placed. Patient tolerated the procedure well with no complications. We reevaluated the patient after 30 minutes to 1 hour. He was also reassessed by physical therapy. He was 90 to 100% better. He is much more functional. This was a successful intrathecal pump trial. He wants proceed with permanent placement. This patient is allergic to morphine. We will plan on intrathecal Dilaudid 1 mg/mL to start at 0.1 mg/day catheter tip will be at the L1 vertebral body. Catheter entry will be at L4-L5. Was discharged home neurologically intact with good relief of pain symptoms. Plan and Disposition:: We will follow-up with this patient in 1 week to reassess his symptomology. Again we will plan on permanent placement with intrathecal Dilaudid 1 mg per ml to start at 0.1 mg/day since he is allergic to morphine.
== END 2022-01-24 11:20 | disposition home or self-care (01) ==
LOC: SC.PAINP 08:43
PROVIDERS: PCP Family Medicine; Visit Provider Anesthesiology
DX: M51.16 Intervertebral disc disorders with radiculopathy, lumbar region (principal); I10 Essential (primary) hypertension; M06.9 Rheumatoid arthritis, unspecified; Z72.0 Tobacco use; Z88.5 Allergy status to narcotic agent
CPT/HCPCS: 62323

== ENCOUNTER → 2022-02-10 11:36 | Outpatient (POV) | payer OTHER, SELFPAY ==
[2022-02-10 11:59] VITALS: BP 167/111; PULSE 86; RESP 18; TEMP 37.1; O2SAT 98; BMI 50.3
--- NOTE | 2022-02-10 12:21 | HMH.PAINSOAP ---
[facility] Pain Management SOAP Note Subjective:: Patient is a pleasant 41-year-old male who presents today for follow-up. We are currently treating this patient for degenerative disc disease of lumbar spine with lumbar radiculopathy symptoms. Patient states that he has chronic low back pain that radiates to bilateral lower extremities. Denies any recent falls or traumas. Denies any loss of bowel and bladder functions. In the past, we have tried multiple injective therapies with this patient that provided temporary relief of symptoms. Patient has also tried and failed conservative therapy such as oral medication, physical therapy, and at home exercise for getting 6 weeks. When we last saw this patient, we did an intrathecal pain pump trial with fentanyl. After 30 minutes of the trial, patient had significant relief of about 90 to 100%. Patient was able to walk straight with no pain in his back. This was a successful trial. He rates his pain today as 8 out of 10. He is not on any scheduled medications. [facility] #[id number]. ORT score is low risk. Review of Systems: General: No recent weight changes, no fever, no sleep disturbances Respiratory: No cough, no shortness of air, no recurring pulmonary infections Cardiovascular/peripheral vascular: No chest pain, no palpitations, no edema, no shortness of breath Gastrointestinal: No new onset incontinence, normal bowel movements reported Genitourinary: No new onset incontinence Musculoskeletal: Low back pain Psychiatric: [Normal mood/affect] Neurological: [Denies weakness in extremities], [denies balance issues] Objective:: Physical Exam: General: Alert and oriented x3, no acute distress, pleasant and cooperative, [on room air] Lungs: Respirations even and unlabored, symmetrical chest expansion Eyes: PERRL Musculoskeletal: Flexion and extension of lumbar [spine] somewhat guarded secondary to pain, [antalgic gait noted] Neurological: Speech clear, no gross sensory deficit Assessment:: Degenerative disc disease of the lumbar spine with lumbar radiculopathy symptoms Plan:: Patient had significant relief after the intrathecal pump trial with fentanyl. Patient would like to move forward with a permanent placement of his intrathecal pain pump. I discussed this procedure in detail with the patient. Patient is not on any blood thinners. From his trial note, since the patient is allergic to morphine, we will start the patient on Dilaudid 1 mg/mL at a rate of 0.1 mg/day. The catheter tip will be at the L1 vertebral body. I discussed with the patient that since he is a smoker, he is healing time will be slightly longer than normal. He does not have diabetes. And patient is not on any blood thinners. His intrathecal pump placement is scheduled for February 25, 2022. Patient has been instructed to contact the clinic with any concerns before the next appointment. Dr. Quinones has reviewed this note and agrees with this plan of care. This note was dictated using voice recognition software and make contain errors or omissions. [facility] History Medical History: Reports:: Hypertension Denies:: Cancer, Diabetes Mellitus Type 1, Diabetes Mellitus Type 2, MRSA *Have you ever received a pneumonia vaccine?: No *Have you received a flu vaccine this season?: No Other Medical History: Reports: Arthritis (rheumatoid) Laterality Cases: Left: Other Other Surgeries: Yes: Cholecystectomy Amputation: No Fractures: Yes (left leg) - *Social History Smoking Status: Current every day smoker Tobacco Type: cigarettes # Packs/Day (cigarettes): 1 Alcohol Intake: never Alcohol Intake Frequency:: holidays/special occasions only *Occupational Status:: employed Housing: other Household Members: other *Travel in the last 8 weeks: None Family Hx:: No significant family history
== END ==
PROVIDERS: Visit Provider Student in an Organized Health Care Education/Training Program
DX: M51.16 Intervertebral disc disorders with radiculopathy, lumbar region (principal)
CPT/HCPCS: 99212; G0463

== ENCOUNTER → 2022-02-24 11:47 | Outpatient (CLI) | payer OTHER, SELFPAY ==
[2022-02-24 12:40] LABS: Basophils # 0.2 K/mm3 (0-0.2); Eosinophils # 0.4 K/mm3 (0.0-0.4); Eosinophils % 2.7 % (0.1-12.0); Hemoglobin 15.8 g/dL (14.1-18.0); Lymphocytes # 2.7 K/mm3 (0.7-4.5); Lymphocytes % 18.1 % (10-50); Mean Corpuscular HGB Conc 34.3 g/dL (31.8-35.4); Mean Corpuscular Hemoglobin 30.1 pg (27.0-31.2); Mean Corpuscular Volume 87.8 fl (80-94); Mean Platelet Volume 8.3 fl (7.4-10.4); Monocytes # 0.5 K/mm3 (0.1-1.0); Monocytes % 3.4 % (1.7-9.3); Neutrophils % 74.7 % (37.0-80.0); Platelet Count 390 K/mm3 (142-424); Red Blood Count 5.24 M/mm3 (4.60-6.20); Red Cell Distribution Width 14.6 % (11.5-17.5); White Blood Count 14.8 K/mm3 (4.8-10.8)
[2022-02-24 13:16] LABS: Creatinine,Urine Random 32 mg/dL (Not Estab.); Microalbumin < 6.000 mg/L (0-16.7)
[2022-02-24 13:25] LABS: Chloride 108 mmol/L (98-107); Potassium 4.2 mmoL/L (3.5-5.1); Sodium 139 mmol/L (136-145)
[2022-02-24 13:27] LABS: Cholesterol 296 mg/dl (140-200); HDL Cholesterol 56 mg/dl (40-60); Triglycerides 189 mg/dl (30-150); VLDL Cholesterol 38 mg/dL (0-40)
[2022-02-24 13:29] LABS: Chol/HDL Ratio 5.3 (1-3.5)
[2022-02-24 13:29] LABS: Anion Gap 11.2 mEq/L (5-15); Blood Urea Nitrogen 16 mg/dl (9-20); Calcium 9.3 mg/dl (8.4-10.2); Carbon Dioxide 24 mmol/L (22.0-30.0); Estimated Glomerular Filt Rate 93 ml/min (>60); GFR (African American) 112 ML/MIN (>60); Glucose 119 mg/dl (74-100)
[2022-02-24 13:41] LABS: Direct LDL Cholesterol 213.43 mg/dL (100-129)
[2022-02-24 13:58] LABS: Thyroid Stimulating Hormone 2.95 uIU/mL (0.465-4.68)
[2022-02-24 17:23] LABS: Amphetamine/Metha Screen,Urine Negative ng/ml (<1000); Barbiturates Screen,Urine Negative ng/ml (<200)
[2022-02-24 17:24] LABS: Benzodiazepines Screen,Urine Negative ng/ml (<200)
[2022-02-24 17:25] LABS: Cannabinoid Screen,Urine Negative ng/ml (<50); Cocaine Screen,Urine Negative ng/ml (<300)
[2022-02-24 17:26] LABS: Methadone Screen,Urine Negative ng/ml (<300); Opiate Screen,Urine Negative ng/ml (<300)
[2022-02-24 17:27] LABS: Phencyclidine Screen,Urine Negative ng/ml (<25)
== END ==
PROVIDERS: PCP Family Medicine; Visit Provider Anesthesiology
DX: Z01.812 Encounter for preprocedural laboratory examination (principal); Z11.52 Encounter for screening for COVID-19; M51.36 Other intervertebral disc degeneration, lumbar region; I10 Essential (primary) hypertension; E87.6 Hypokalemia
CPT/HCPCS: 36415; 80048; 80061; 80305; 82043; 82570; 84443; 85025; C9803; U0003; U0005

== ENCOUNTER 2022-02-25 09:46 | Day surgery (SDC) | payer OTHER, SELFPAY ==
[2022-02-24 08:45] VITALS: BMI 50.1
[2022-02-25 10:15] VITALS: BP 116/74; PULSE 81; RESP 18; TEMP 36.1; O2SAT 99
--- NOTE | 2022-02-25 12:28 | HMH.ANESCL ---
[facility] Anesthesia Checklist - Patient Identification Patient Identification: Arm Band - Structural Data Admitted From: Home Planned Operative Procedure/s: Pain pump placement Consent for Planned Operative Procedure(s) Verified: Yes - NPO Status Verified Time NPO: 00:00 - Additional verifications Anesthesia Reactions: No Hx Blood Transfusions: No Blood Transfusion Reaction: No - Airway Assessment C-Spine Mobility Assessed: Yes TMJ Mobility Assessed: Yes Dentition: Good Dentition - Neurological Assessment Level of Consciousness: Awake Hx Seizures: No Numbness or tingling in extremities: No - Anesthesia Plan Anesthesia Risk discussed: Yes Anesthesia Plan: Verified ASA Class: II Anesthesia Type: MAC [facility] History I have reviewed the patient's past medical history: Yes Medical History: Reports:: Gastroesophageal Reflux Disease(GERD) Denies:: Cancer, Diabetes Mellitus Type 1, Diabetes Mellitus Type 2, Internal Pacemaker, MRSA, Seizures *Have you ever received a pneumonia vaccine?: No *Have you received a flu vaccine this season?: No Other Medical History: Reports: Arthritis (rheumatoid). Denies: Blood Transfusion Reaction Anesthesia experience/problems:: None Laterality Cases: Left: Other Other Surgeries: Yes: Cholecystectomy. No: Pacemaker Amputation: No Fractures: Yes (left leg) - *Social History Last grade of school completed: High school graduate Smoking Status: Current every day smoker Tobacco Type: cigarettes # Packs/Day (cigarettes): 1 Alcohol Intake: never Alcohol Intake Frequency:: holidays/special occasions only Substance Use Type: denies use *Occupational Status:: employed Housing: other Household Members: other *Travel in the last 8 weeks: None Family Hx:: No significant family history
[2022-02-25 14:44] VITALS: BP 123/66; PULSE 77; RESP 16; TEMP 36.4; O2SAT 96
--- NOTE | 2022-02-25 14:53 | HMH.OPNOTE ---
Date of procedure: 02/25/22 Pre-op Diagnosis:: Degenerative disc disease of lumbar spine with lumbar radiculopathy symptoms Post-op Diagnosis:: Same Procedure performed:: Permanent placement intrathecal pain pump catheter and reservoir Surgeon:: Jose D Quinones MD POWER SYSTEM OPERATOR:: Other Anesthesia: MAC Estimated blood loss (mL): 5 Clinical Note:: This patient is a pleasant 41-year-old white male who we are treating for low back pain with lumbar radiculopathy symptoms. He has failed all previous conservative treatments including injections, oral medications, physical therapy and he is not a surgical candidate. He has had a successful psychological evaluation and a successful intrathecal pump trial. He presents for permanent placement of intrathecal pain pump today. He is allergic to morphine so we will start with intrathecal Dilaudid 1 mg/mL at 0.1 mg/day. Operative findings:: None Operative note:: Informed consent was obtained and the risk and benefits of the procedure were explained to the patient. The patient was taken to the operating room and placed on the procedure table. The patient was prepped and draped in sterile fashion. The skin and subcutaneous tissues in the right flank were anesthetized using lidocaine. I made an incision and dissected out for the pocket for the pain pump reservoir. C-arm fluoroscopy was then used to view the lumbar spine. The skin and subcutaneous tissues adjacent to the L4-L5 interspace were anesthetized using lidocaine. I made an incision and dissected down to the lumbar paraspinous fascia. A 15-gauge spinal needle was inserted and advanced into the L4-5 interspace until clear CSF was obtained. After this intrathecal catheter was inserted and advanced very easily to the T10 vertebral body. The stylette of the catheter and the needle were withdrawn. The catheter was secured to the fascia with 2 anchoring devices and 2-0 Prolene. I tunneled the catheter from the back to the pump pocket and attached catheter to the pump. Previously the pump was filled with 20 mL of intrathecal Dilaudid 1 mg/mL. The pump was placed in the pocket. We were able to freely withdraw clear CSF through the side-port. Both incisions were irrigated with antibiotic solution. Both incisions were then closed with 2-0 Vicryl followed by 4-0 nylon. Patient tolerated the procedure well with no complications. The pump was interrogated and started at 0.1 mg/day. Patient was discharged home neurologically intact with good relief of pain symptoms. Patient was discharged on Bactrim DS twice a day for 5 days. Plan and disposition: We will follow-up with this patient in 1 week for wound check and reprogramming. We will follow-up in 2 to 3 weeks for suture removal. Patient has any problems or questions patient is to call us in the pain clinic. Condition: stable Disposition: PACU Complications:: None
[2022-02-25 14:54] VITALS: BP 139/97; PULSE 77; RESP 16; O2SAT 94
[2022-02-25 15:04] VITALS: BP 175/98; PULSE 72; RESP 16; O2SAT 97
[2022-02-25 15:12] VITALS: BP 173/86; PULSE 72; RESP 16; O2SAT 97
[2022-02-25 15:40] VITALS: BP 167/85; PULSE 74; RESP 16; TEMP 36.4; O2SAT 98
== END 2022-02-25 15:40 | disposition home or self-care (01) ==
LOC: OR 09:47
PROVIDERS: PCP Family Medicine; Visit Provider Anesthesiology
PROC: (CPT 62350; principal; 2022-02-25 12:15)
DX: M51.16 Intervertebral disc disorders with radiculopathy, lumbar region (principal); K21.9 Gastro-esophageal reflux disease without esophagitis; M19.90 Unspecified osteoarthritis, unspecified site; I10 Essential (primary) hypertension; Z88.5 Allergy status to narcotic agent; Z79.899 Other long term (current) drug therapy
CPT/HCPCS: 62350; 62362; 96374; C1755; C1772; J2405; J3370

== ENCOUNTER → 2022-03-03 11:02 | Outpatient (POV) | payer OTHER, SELFPAY ==
[2022-03-03 11:23] VITALS: BP 158/111; PULSE 88; RESP 18; TEMP 36; O2SAT 96; BMI 59.5
--- NOTE | 2022-03-03 12:36 | HMH.PMPROC ---
- Procedure Date: 03/03/22 Time: 12:36 Anesthesiologist:: DAYTON Gan Complications:: None Pre-procedure Diagnosis:: Degenerative disc disease of the lumbar spine with lumbar radiculopathy symptoms Post-procedure Diagnosis:: Same Indications for Procedure:: Patient is a pleasant 42-year-old male who presents today for follow-up after the permanent placement of intrathecal pain pump on February 25, 2022. Patient is currently being managed with intrathecal Dilaudid 1 mg/mL at a rate of 0.1 mg/day. Patient denies any side effects from this medication. Patient states that he has been able to increase his activity since the placement of the intrathecal pain pump. We will plan to remove his wound VAC today. He rates his pain as 5 out of 10. We will also set up his PTC device today. Physical Exam: General: Alert and oriented x3, no acute distress, pleasant and cooperative Lungs: Respirations even and unlabored, symmetrical chest expansion Eyes: PERRL Musculoskeletal: Flexion and extension of lumbar [spine] somewhat guarded secondary to pain, [antalgic gait noted] Skin: Surgical incisions are healing well and well approximated. There is no drainage, erythema, and swelling. Neurological: Speech clear, no gross sensory deficit Procedure Details:: Informed consent was obtained and the risk and benefits of the procedure were explained to the patient. Patient was taken to the procedure room where noninvasive monitoring was placed including noninvasive blood pressure cuff and pulse oximeter. Patient's pump was interrogated and was reprogrammed to Dilaudid 1 0.1 mg/day. PTC device is set up to Dilaudid 0.01 mg every 6 hours. The patient tolerated the procedure well with no complications. Plan and Disposition:: Patient is doing well with his intrathecal pain pump. Denies any side effects such as urinary hesitation or constipation. Denies any itchiness from the medication. We have set up his PTC device today to Dilaudid 0.01 mg up to 4 times a day. We removed his wound VAC today. Surgical incisions are healing well and well approximated. There is no drainage, erythema, and swelling. Follow-up in 2 weeks for suture removal. Patient has been instructed to contact the clinic with any concerns before the next appointment. Dr. Quinones has reviewed this note and agrees with this plan of care. This note was dictated using voice recognition software and make contain errors or omissions.
== END ==
PROVIDERS: Visit Provider Student in an Organized Health Care Education/Training Program
DX: M51.16 Intervertebral disc disorders with radiculopathy, lumbar region (principal)
CPT/HCPCS: 62368; 99213; G0463

== ENCOUNTER → 2022-03-14 10:48 | Outpatient (POV) | payer OTHER, SELFPAY ==
[2022-03-14 10:59] VITALS: BP 147/85; PULSE 94; RESP 20; TEMP 36.9; O2SAT 95; BMI 51.4
--- NOTE | 2022-03-14 11:17 | P.CONS_ITS ---
[facility] Pain Management SOAP Note Subjective:: This patient is a pleasant 41-year-old male who returns to our clinic today for follow-up visit. The patient had intrathecal pain pump placed on February 25, 2022. Patient is currently being managed with Dilaudid 1 mg/mL at a rate of 0.1 mg/day. Patient comes to the clinic today regarding increasing lumbar back pain. He denies radicular symptoms. He denies any side effects from the pain pump. He rates his pain 9/10. However, he is having increased lumbar back pain with activity. Patient is utilizing all 4 PTC doses of 0.0100 mg each day.. We discussed in detail with the patient regarding increasing his rate to help cover the lumbar back pain. He agrees. We will proceed with the rate change. Objective:: Degenerative disc disease lumbar spine multilevels with lumbar radicular symptoms. Assessment:: Patient is awake alert oriented x3. No acute distress. Flexion extension of the lumbar spine is guarded secondary to pain. Deep tendon reflexes upper and lower extremities normal. Motor strength upper and lower extremities normal. There is no gross sensory deficit. Gait is normal. Plan:: Stitches are removed today. Wounds look normal and healing without redness or swelling. We will increase his pump rate by 20% today. Patient's new constant flow rate is increased to 0.1200 mg/day. [facility] History Medical History: Reports:: Gastroesophageal Reflux Disease(GERD), Hypertension Denies:: Cancer, Diabetes Mellitus Type 1, Diabetes Mellitus Type 2, Internal Pacemaker, MRSA, Seizures *Have you ever received a pneumonia vaccine?: No *Have you received a flu vaccine this season?: No Other Medical History: Reports: Arthritis (rheumatoid). Denies: Blood Transfusion Reaction Laterality Cases: Left: Other Other Surgeries: Yes: Cholecystectomy. No: Pacemaker Amputation: No Fractures: Yes (left leg) - *Social History Smoking Status: Current every day smoker Tobacco Type: cigarettes # Packs/Day (cigarettes): 1 Alcohol Intake: never Alcohol Intake Frequency:: holidays/special occasions only Substance Use Type: denies use *Occupational Status:: other Housing: other Household Members: other *Travel in the last 8 weeks: None Family Hx:: No significant family history
== END ==
PROVIDERS: PCP Family Medicine; Visit Provider Nurse Anesthetist, Certified Registered
DX: M51.16 Intervertebral disc disorders with radiculopathy, lumbar region (principal)
CPT/HCPCS: 62368; 99212; 99213; G0463

== ENCOUNTER → 2022-03-27 09:45 | Outpatient (POV) | payer OTHER, SELFPAY ==
[2022-03-27 11:42] VITALS: BP 154/115; PULSE 87; RESP 18; TEMP 36.1; O2SAT 96; BMI 51.5
--- NOTE | 2022-03-27 12:59 | P.PCN_ITS ---
- Procedure Date: 03/27/22 Time: 12:59 Anesthesiologist:: DAYTON Gan Complications:: None Pre-procedure Diagnosis:: Degenerative disc disease of the lumbar spine with lumbar radiculopathy symptoms Post-procedure Diagnosis:: Same Indications for Procedure:: Patient is a pleasant 42-year-old male who presents today for intrathecal pain pump adjustment. The patient is being treated for degenerative disc disease of lumbar spine with lumbar radiculopathy symptoms. Patient is currently being managed with intrathecal Dilaudid 1 mg/mL at a rate of 0.12 mg/day. Patient denies any side effects from this medication. Patient rates pain a 6 out of 10. Drug screen is appropriate. Perry [id number] has been reviewed and is appropriate. Patient states that the intrathecal pump is helping manage some of his pain. He does notice a difference when each adjustment of medication. However, he feels like he still needs an adjustment today since he gets significant pain when he starts moving around. We will adjust his intrathecal pump today. Physical exam General: Alert and oriented x3, no acute distress, pleasant and cooperative Lungs: Respirations even and unlabored, symmetrical chest expansion Eyes: PERRL Musculoskeletal: Flexion and extension of lumbar [spine] somewhat guarded secondary to pain, [antalgic gait noted] Skin: Surgical incisions are healing well and well approximated. There is no drainage, erythema, and swelling. There is a slight dehiscence around the lateral aspect of the intrathecal pump pocket. Neurological: Speech clear, no gross sensory deficit Procedure Details:: Informed consent was obtained and the risk and benefits of the procedure were explained to the patient. Patient was taken to the procedure room where n oninvasive monitoring was placed including noninvasive blood pressure cuff and pulse oximeter. Patient's pump was interrogated and was reprogrammed to Dilaudid 0.145 mg/day. The patient tolerated the procedure well with no complications. Plan and Disposition:: Patient is doing well with intrathecal pain pump. Denies any side effects such as constipation or urinary hesitation. We adjusted his intrathecal pump today by 20% to Dilaudid 0.145. He has a slight dehiscence on the lateral aspect of his intrathecal pump incision. We have applied skin glue and Steri-Strips into this area. We will follow-up with this patient in 2 weeks to see if he needs another adjustment and for wound check. Patient has been instructed to contact the clinic with any concerns before the next appointment. Dr. Quinones has reviewed this note and agrees with this plan of care. This note was dictated using voice recognition software and make contain errors or omissions.
== END ==
PROVIDERS: PCP Family Medicine; Visit Provider Student in an Organized Health Care Education/Training Program
DX: M51.16 Intervertebral disc disorders with radiculopathy, lumbar region (principal); T81.30XA Disruption of wound, unspecified, initial encounter
CPT/HCPCS: 62368; 99213; G0463

== ENCOUNTER → 2022-04-21 14:05 | Outpatient (POV) | payer OTHER, SELFPAY ==
--- NOTE | 2022-04-21 14:51 | P.PCN_ITS ---
- Procedure Date: 04/21/22 Time: 14:51 Anesthesiologist:: DAYTON Gan Complications:: None Pre-procedure Diagnosis:: Degenerative disease of lumbar spine with lumbar radiculopathy symptoms Post-procedure Diagnosis:: Same Indications for Procedure:: Patient is a pleasant 41-year-old male who presents today for intrathecal pain pump reprogram. The patient is being treated for degenerative disease of lumbar spine with lumbar radiculopathy symptoms. Patient is currently being managed with Dilaudid 1 mg/mL at a rate of 0.145 mg/day. Patient denies any side effects from this medication. Patient says that this medication is helping his pain. However, he has been having increasing pain in the right upper buttock that radiates down to his anterior thigh towards his right knee. He describes it as burning and feels like there's water dripping down his right leg. Denies any traumas or falls. He states that he cannot tolerate standing for long periods of time. 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 Patient rates pain a 5 out of 10. Drug screen is appropriate. Perry [id number] with an active morphine equivalent of 0 has been reviewed and is appropriate. Physical exam General: Alert and oriented x3, no acute distress, pleasant and cooperative Lungs: Respirations even and unlabored, symmetrical chest expansion Eyes: PERRL Musculoskeletal: Flexion and extension of lumbar [spine] somewhat guarded secondary to pain, [antalgic gait noted]; right SI positive for HARDIK, Michelle's, Mustang's, Gaenslen's, compression, and distraction. Patient is tender to palpat ion around the left greater trochanteric bursa Neurological: Speech clear, no gross sensory deficit Procedure Details:: Informed consent was obtained and the risk and benefits of the procedure were explained to the patient. Patient was taken to the procedure room where noninvasive monitoring was placed including noninvasive blood pressure cuff and pulse oximeter. Patient's pump was interrogated and was reprogrammed to Dilaudid 0.174 mg/day. We also reprogrammed his PTC device to provide Dilaudid 0.007 mg per bolus up to 6 times a day for total of 0.042 mg/day. The patient tolerated the procedure well with no complications. Plan and Disposition:: Patient has a point of tenderness around the right SI joint. We will schedule the patient for a right SI injection. We will also start the patient on pregabalin 75 mg twice a day. We will see the patient back in the clinic at the next intrathecal refill. Patient has been instructed to contact the clinic with any concerns before the next appointment. Dr. Quinones has reviewed this note and agrees with this plan of care. This note was dictated using voice recognition software and make contain errors or omissions.
[2022-04-21 15:03] VITALS: BP 131/80; PULSE 79; RESP 20; TEMP 36.9; O2SAT 94; BMI 50.3
== END ==
PROVIDERS: PCP Family Medicine; Visit Provider Student in an Organized Health Care Education/Training Program
DX: M51.16 Intervertebral disc disorders with radiculopathy, lumbar region (principal)
CPT/HCPCS: 62368; 99212; G0463

== ENCOUNTER 2022-05-02 10:19 | Day surgery (SDC) | payer OTHER, SELFPAY ==
[2022-05-02 10:28] VITALS: BP 154/96; PULSE 92; RESP 18; TEMP 36.5; O2SAT 96; BMI 50.3
[2022-05-02 11:04] VITALS: BP 131/97; PULSE 72; RESP 20
--- NOTE | 2022-05-02 11:10 | HMH.PMPROC ---
- Procedure Date: 05/02/22 (n) Time: 11:10 Anesthesiologist:: Blake Macedo CRNA Complications:: None Pre-procedure Diagnosis:: Right sacroiliitis. Post-procedure Diagnosis:: Same Indications for Procedure:: Patient is a pleasant 41-year-old male who comes our clinic today for right SI joint injection. Patient also being managed with Dilaudid intrathecal pain pump. He is doing very well. Procedure Details:: Procedure: Right sacroliliac joint injection under fluoroscopy Informed consent was obtained and the risk and benefits of the procedure were explained to the patient.~ The patient was taken to the procedure room and noninvasive monitors were placed including noninvasive blood pressure cuff and pulse oximeter.~ The patient was placed prone on the procedure table.~ The~ right hip was cleansed using Betadine as a cleansing solution.~ C-arm fluorosocpy was used to view the right SI joint.~ The skin and subcutaneous tissues were anesthetized using Lidocaine 1.5% and a 25-gauge needle.~ After this, a 22-gauge spinal needle was inserted under fluoroscopic guidance into the inferior aspect of the right SI joint.~ Omnipaque dye was injected and a good spread was seen throughout the joint.~ After this, approximately 5 mL of bupivacaine 0.25% and Depo-Medrol 40 mg was incrementally injected into the sacroiliac joint.~ The patient tolerated the procedure well with no complications.~ The patient was observed in the Pain Clinic, then discharged home neurologically intact.~ Plan and Disposition:: Patient was discharged without incident.
[2022-05-02 11:16] VITALS: BP 149/94; PULSE 81; RESP 20; O2SAT 98
== END 2022-05-02 11:17 | disposition home or self-care (01) ==
LOC: SC.PAINP 10:19
PROVIDERS: PCP Family Medicine; Visit Provider Nurse Anesthetist, Certified Registered
DX: M46.1 Sacroiliitis, not elsewhere classified (principal)
CPT/HCPCS: 27096; G0260; J1040

== ENCOUNTER 2022-05-30 13:11 | Day surgery (SDC) | payer OTHER, SELFPAY ==
[2022-05-30 13:18] VITALS: BP 157/107; PULSE 89; RESP 20; TEMP 36.7; O2SAT 96; BMI 48.9
[2022-05-30 13:29] VITALS: BP 178/99; PULSE 82; RESP 20; O2SAT 97
[2022-05-30 13:50] VITALS: BP 136/97; PULSE 81; RESP 20; O2SAT 95
--- NOTE | 2022-05-30 13:55 | HMH.PMPROC ---
- Procedure Date: 05/30/22 Time: 13:55 Anesthesiologist:: Jose D Quinones MD Complications:: None Pre-procedure Diagnosis:: Degenerative disc disease of lumbar spine with lumbar radiculopathy symptoms Post-procedure Diagnosis:: Same Indications for Procedure:: This patient is a pleasant 41-year-old white male who currently has an intrathecal Dilaudid pain pump in place. He has had some increasing pain recently. We will refill his pump and increase his infusion today. Perry and drug screen are all appropriate. He does have an antalgic gait. Motor strength of the lower extremities is 5/5. There is no gross sensory deficit. Procedure Details:: Informed consent was obtained and the risks and benefits of the procedure was explained to the patient. The patient was taken to the procedure room. The pump was interrogated. The area over the pump was prepped using ChloraPrep. The pump was accessed with a 22-gauge needle. Approximately 19 mL's of the intrathecal solution was withdrawn and discarded as 4.5 mL was expected in the reservoir.. The pump was then refilled with 20 mL's of intrathecal Dilaudid 1 mg/mL the pump was interrogated and the infusion was increased to 0.2 mg/day. The patient tolerated the procedure well with no complication. Plan and Disposition:: We will follow-up with him in 2 weeks to reevaluate his symptoms if he is still having some increasing pain we will do an intrathecal catheter dye study. We did check the catheter and it is in good position at the T12-L1 vertebral bodies.
== END 2022-05-30 13:50 | disposition home or self-care (01) ==
LOC: SC.PAINP 13:12
PROVIDERS: PCP Family Medicine; Visit Provider Anesthesiology
DX: M51.16 Intervertebral disc disorders with radiculopathy, lumbar region (principal)
CPT/HCPCS: 62370

== ENCOUNTER 2022-05-31 19:36 | Emergency (ER) | payer OTHER, SELFPAY ==
[2022-05-31 19:34] VITALS: BP 129/72; PULSE 107; RESP 18; TEMP 38.2; O2SAT 95; BMI 50.3
--- NOTE | 2022-05-31 19:39 | XR_ITS ---
PROCEDURE INFORMATION: Exam: XR Chest Exam date and time: 05/31/2022 7:55 PM Age: 41 years old Clinical indication: Cough TECHNIQUE: Imaging protocol: Radiologic exam of the chest. Views: 2 views. COMPARISON: CR XR CHEST PORTABLE 08/25/2020 10:56 AM FINDINGS: Lungs: Interstitial opacities bilaterally concerning for interstitial pneumonia. No consolidation. Granulomatous change. Pleural spaces: Unremarkable. No pleural effusion. No pneumothorax. Heart/Mediastinum: Unremarkable. No cardiomegaly. Bones/joints: Unremarkable. IMPRESSION: Interstitial opacities bilaterally concerning for interstitial pneumonia.
[2022-05-31 19:44] LABS: Influenza A, PCR Not Detected (NotDetected); Influenza B, PCR Not Detected (NotDetected)
[2022-05-31 20:29] LABS: Coronavirus 19, PCR Detected (NotDetected)
[2022-05-31 20:54] LABS: Basophils # 0.1 K/mm3 (0-0.2); Basophils % 0.6 % (0.1-2.0); Eosinophils # 0.2 K/mm3 (0.0-0.4); Hematocrit 40.6 % (42.0-52.0); Hemoglobin 12.8 g/dL (14.1-18.0); Mean Corpuscular HGB Conc 31.6 g/dL (31.8-35.4); Mean Corpuscular Hemoglobin 31.9 pg (27.0-31.2); Mean Platelet Volume 8.6 fl (7.4-10.4); Monocytes # 0.6 K/mm3 (0.1-1.0); Monocytes % 6.1 % (1.7-9.3); Neutrophils # 6.3 K/mm3 (1.8-7.8); Neutrophils % 69.3 % (37.0-80.0); Platelet Count 228 K/mm3 (142-424); Red Blood Count 4.02 M/mm3 (4.60-6.20); Red Cell Distribution Width 14.3 % (11.5-17.5); White Blood Count 9.1 K/mm3 (4.8-10.8)
--- NOTE | 2022-05-31 20:55 | HMH.EDGENADL ---
ED Disposition Clinical Impression: COVID Pneumonia Qualifiers: Pneumonia type: due to unspecified organism Laterality: bilateral Lung location: unspecified part of lung Qualified Code(s): J18.9 - Pneumonia, unspecified organism Disposition: Home, Self-Care Condition on Discharge: Fair Instructions: Pneumonia-Adult Additional Instructions: Please call your bottom buffer on Thursday to see if they would like to start you on steroids or not for your pneumonia with your history of RA Referrals: Nacho Bronson MD [Primary Care Provider] - Forms: Work/School Release - Critical Care Critical Care Time: No Attestation: On 05/31/22, the high probability of a clinically significant, sudden or life threatening deterioration of the following system(s) required my full and direct attention, intervention and personal management. The time I documented below is in addition to time spent performing reported procedures but includes the following listed in this critical care notation. Medical Decision Making - Medical Records Medical records reviewed: Yes: I reviewed the patient's medical records. - Perry Inquiry Pt receiving controlled substance: No Vital Signs: 05/31/22 19:34 05/31/22 22:08 Temperature 100.8 F H 98.2 F Temperature Source Oral Oral Pulse Rate 78 Pulse Rate [Apical] 107 H Respiratory Rate 18 18 Blood Pressure 130/75 Blood Pressure [Right Arm] 129/72 Blood Pressure Mean [Right Arm] 91 Blood Pressure Source Automatic Cuff Blood Pressure Source [Right Arm] Automatic Cuff Blood Pressure Position Sitting Blood Pressure Position [Right Arm] Sitting 02 Sat by Pulse Oximetry 95 Oxygen Delivery Method Room Air Room Air - Lab Data Lab results reviewed: Yes: I reviewed the patient's lab results. Lab Results 05/31/22 19:40: SARS-CoV-2 (PCR) Detected A, Influenza A Untype (PCR) Not detected, Influenza Type B (PCR) Not detected 05/31/22 20:28: WBC 9.1, RBC 4.02 L, Hgb 12.8 L, Hct 40.6 L, MCV 101.0 H, MCH 31.9 H, MCHC 31.6 L, RDW 14.3, Plt Count 228, MPV 8.6, Neut % (Auto) 69.3, Lymph % (Auto) 22.0, [place] % (Auto) 6.1, Eos % (Auto) 2.0, Baso % (Auto) 0.6, Neut # (Auto) 6.3, Lymph # (Auto) 2.0, [place] # (Auto) 0.6, Eos # (Auto) 0.2, Baso # (Auto) 0.1 05/31/22 20:28: Sodium 138, Potassium 3.9, Chloride 103, Carbon Dioxide 31 H, Anion Gap 7.9, BUN 21 H, Creatinine 0.80, Estimated Creat Clear 132, Estimated GFR 106, Est GFR ( Amer) 128, Glucose 159 H, Calcium 9.2, Total Bilirubin 0.3, AST 28, ALT 23, Alkaline Phosphatase 70, C-Reactive Protein 19.8 H, Total Protein 6.7, Albumin 3.7, Globulin 3.0, Albumin/Globulin Ratio 1.2 05/31/22 20:28: Procalcitonin 0.055 Result diagrams: 05/31/22 20:28 05/31/22 20:28 Orders (Tests/Meds): ED MEDICATIONS Discontinued Medications Generic Name Dose Route Start Last Admin Trade Name Marco A PRN Reason Stop Dose Admin Acetaminophen 1,000 mg 05/31/22 19:39 05/31/22 20:33 Acetaminophen 500mg Tab PO 05/31/22 19:40 1,000 mg ONCE ONE Administration Sodium Chloride 1,000 mls @ 999 mls/hr 05/31/22 19:45 05/31/22 20:33 Sod Chlor 0.9% 1000ml Bag IV 05/31/22 20:45 999 mls/hr .[id number] JOHN Administration ORDERS Category Date Time Status Blood Culture Stat Micro 05/31/22 21:34 Received Medical Decision Narrative: In review this is a 41-year-old male who presents with multiple complaints. Hemodynamically stable and nontoxic.. Patient symptoms are most likely consistent with COVID and his COVID swab did come back positive but with his history of rheumatoid arthritis on Enbrel we will check basic laboratory studies as well as a chest x-ray to evaluate for any signs of pneumonia. His chest x-ray showed evidence of interstitial pneumonia so I did elect to start him on antibiotics at this time but he is maintaining 100% oxygen saturation on room air. I also gave him the recommendation to call his bottom buffer on Thursday to see if they want to st
[2022-05-31 20:57] LABS: Alanine Aminotransferase 23 U/L (12-78); Albumin Level 3.7 g/dl (3.5-5.0); Albumin/Globulin Ratio 1.2 (1.1-1.8); Alkaline Phosphatase 70 U/L (38-126); Anion Gap 7.9 mEq/L (5-15); Aspartate Amino Transferase 28 U/L (17-59); Bilirubin,Total 0.3 mg/dl (0.2-1.3); Blood Urea Nitrogen 21 mg/dl (9-20); Calcium 9.2 mg/dl (8.4-10.2); Carbon Dioxide 31 mmol/L (22.0-30.0); Chloride 103 mmol/L (98-107); Creatinine Clearance Estimated 132 mL/min (50-200); Estimated Glomerular Filt Rate 106 ml/min (>60); GFR (African American) 128 ML/MIN (>60); Glucose 159 mg/dl (74-100); Potassium 3.9 mmoL/L (3.5-5.1); Sodium 138 mmol/L (136-145); Total Protein,Serum 6.7 g/dl (6.3-8.2)
[2022-05-31 21:02] LABS: C-Reactive Protein 19.8 mg/L (0-4)
[2022-05-31 21:16] LABS: Procalcitonin 0.055 ng/mL (0.0-2.0)
[2022-05-31 22:08] VITALS: BP 130/75; PULSE 78; RESP 18; TEMP 36.8; O2SAT 99
== END 2022-05-31 22:10 | disposition home or self-care (01) ==
PROVIDERS: Emergency Medicine; Emergency Provider Student in an Organized Health Care Education/Training Program; PCP Family Medicine
DX: U07.1 COVID-19 (principal); J12.82 Pneumonia due to coronavirus disease 2019; M06.9 Rheumatoid arthritis, unspecified
CPT/HCPCS: 36415; 71046; 80053; 84145; 85025; 86140; 87040; 96360; 96361; 99284; C9803; U0003; U0005

== ENCOUNTER 2022-07-04 13:48 | Day surgery (SDC) | payer BC, OTHER, SELFPAY ==
[2022-07-04 14:23] VITALS: BP 134/84; PULSE 90; RESP 18; TEMP 36.7; O2SAT 96; BMI 51.0
[2022-07-04 14:52] VITALS: BP 161/102; PULSE 89; RESP 18; O2SAT 96
[2022-07-04 14:56] VITALS: BP 161/102; PULSE 87; RESP 19; O2SAT 96
[2022-07-04 15:21] VITALS: BP 135/86; PULSE 90; RESP 18; O2SAT 96
--- NOTE | 2022-07-04 15:25 | EXP.PAIN.PRO ---
Procedure Date: 07/04/22 Time: 15:25 Anesthesiologist:: Jose D Quinones MD Complications:: None Pre-procedure Diagnosis:: Degenerative disc disease of lumbar spine with lumbar radiculopathy symptoms with increasing low back pain and volume discrepancy at his last pump refill Post-procedure Diagnosis:: Same Indications for Procedure:: This patient is a pleasant 41-year-old white male with an intrathecal Dilaudid pain pump. At his last pump refill. We had a significant volume discrepancy with actual residual volume being 19 where expected residual volume was 4ml. He is having some increasing low back pain. We will do an intrathecal catheter dye study and pump study today to assess patency of his intrathecal catheter and proper placement Procedure Details:: Intrathecal pump catheter dye study and pump study Informed consent was obtained risk and benefits of the procedure were explained to the patient. Patient was taken the procedure room. The back was prepped using ChloraPrep. The side-port of the pump was accessed with a 22-gauge needle. We were able to freely withdraw medication and CSF through the catheter. The catheter was patent and in proper position. We did check the reservoir volume. The actual volume was 19 were as expected was 12. It was decided that we would interrogate the pump and place the patient on a periodic bolus regimen to see if this will help with his pain symptoms as there may have been intermittent obstruction to his catheter. Plan and Disposition:: We will follow-up with him in 2 weeks. Will reevaluate his symptoms at that time. If he does not get adequate relief of his pain symptoms we may consider replacing his intrathecal pain pump.
== END 2022-07-04 15:22 | disposition home or self-care (01) ==
PROVIDERS: PCP Family Medicine; Visit Provider Anesthesiology
DX: M51.16 Intervertebral disc disorders with radiculopathy, lumbar region (principal); Z79.899 Other long term (current) drug therapy
CPT/HCPCS: 61070

== ENCOUNTER → 2022-07-10 09:24 | Outpatient (POV) | payer BC, OTHER, SELFPAY ==
[2022-07-10 09:53] VITALS: BP 147/115; PULSE 63; RESP 18; TEMP 35.9; O2SAT 95; BMI 60.0
--- NOTE | 2022-07-10 11:23 | EXP.PAIN.SOA ---
[facility] Pain Management SOAP Note Subjective:: Patient is a pleasant 41-year-old male who presents today for follow-up from a catheter dye study of his intrathecal pain pump on 07/04/2022. We are currently treating the patient for degenerative disc disease of lumbar spine with lumbar radiculopathy symptoms, low back pain and volume discrepancy at his last pump refill. Today the patient rates his pain a 9 out of 10 he states it is primarily in his low back that radiates into his bilateral lower extremities primarily on the right leg. He describes this as a constant throbbing sensation that is worse with increased activity. Patient states he had previously had significant improvement of his pain symptoms when he initially got his pain pump however over time it seemed like it became less effective and his pain along his right leg worsened. At the catheter dye study it did show that his current intrathecal pump is not accurately working. We did discuss with him at this appointment that he needed his pump replaced. At this time the patient is not on any other scheduled medications other than his intrathecal pump. His current dosage is Dilaudid 0.05 mg periodic flow 3 times a day with a total dose of 0.15 mg/day. Patient is requesting something to help with the pain at today's visit since his pump is not functioning correctly. His Perry is [phone]. It has been reviewed and appropriate. Review of Systems: General: No recent weight changes, no fever, no sleep disturbances Respiratory: No cough, no shortness of air, no recurring pulmonary infections Cardiovascular/peripheral vascular: No chest pain, no palpitations, no edema, no shortness of breath Gastrointestinal: No new onset incontinence, normal bowel movements reported Genitourinary: No new onset incontinence Musculoskeletal: Low back pain, bilateral lower extremity pain Psychiatric: [Normal mood/affect] Neurological: [Denies weakness in extremities], [denies balance issues] Objective:: Physical Exam: General: Alert and oriented x3, no acute distress, pleasant and cooperative Lungs: Respirations even and unlabored, symmetrical chest expansion Eyes: PERRL Musculoskeletal: Flexion and extension of lumbar [spine] somewhat guarded secondary to pain, [antalgic gait noted] Neurological: Speech clear, no gross sensory deficit Assessment:: Degenerative disc disease of lumbar spine with lumbar radiculopathy symptoms, low back pain, intrathecal pain pump volume discrepancy Plan:: Patient is having significant pain in his low back that radiates into his bilateral lower extremities at today's visit. I have discussed with the patient regarding replacing his current pump since it is not functioning properly. Patient would like to proceed forward with this plan of care. Patient does state that he will have a change in his insurance coming up on the due to going back to work and starting back on their insurance. I will order the patient Percocet 10 mg 3 times daily and provide a 1 month supply of this medication. We will turn off his intrathecal pump today and submit for a replacement of his intrathecal pain pump. We will follow-up with the patient once we have approval. Patient has been instructed to contact the clinic with any concerns before the next appointment. Dr. Quinones has reviewed this note and agrees with this plan of care. This note was dictated using voice recognition software and make contain errors or omissions. [facility] Medical History (Updated 07/04/22 @ 14:30 by Doretha Alicia RN) History of chest pain Family History Other No significant family history Social History Smoking Status: Current every day smoker tobacco type: cigarettes packs per day: 1 second hand exposure: No alcohol intake: never substance use type: denies use current occupational status: employed Travel
== END | disposition home or self-care (01) ==
PROVIDERS: PCP Family Medicine; Visit Provider Nurse Practitioner Family
DX: M51.16 Intervertebral disc disorders with radiculopathy, lumbar region (principal); T85.615A Breakdown (mechanical) of other nervous system device, implant or graft, initial encounter; Z79.899 Other long term (current) drug therapy; Z72.0 Tobacco use
CPT/HCPCS: 99212; G0463

== ENCOUNTER → 2022-07-17 09:48 | Outpatient (POV) | payer BC, OTHER, SELFPAY ==
--- NOTE | 2022-07-17 10:19 | EXP.PAIN.SOA ---
[facility] Pain Management SOAP Note Subjective:: Patient is a pleasant 41-year-old male who presents today for follow-up. We are currently treating the patient for degenerative disc disease of lumbar spine with lumbar radiculopathy symptoms, low back pain with volume discrepancy, nonfunctioning intrathecal pain pump. Today the patient rates his pain a 5 out of 10 and states it is primarily in his low back that radiates into his bilateral lower extremities. Patient states this is a throbbing sensation that is worse with increased activity. At her last visit we did prescribe Percocet 10 mg 3 times a day. Patient states he has had significant improvement of his pain symptoms following this medication. Patient denies any side effects from this medication. He states it does adequately help manage his pain. We are currently waiting to hear from insurance for a revision/replacement of his current intrathecal pain pump. At our last visit we did turn off his device. His Perry is [id number] with a morphine equivalent of 45. Its been reviewed and appropriate. Review of Systems: General: No recent weight changes, no fever, no sleep disturbances Respiratory: No cough, no shortness of air, no recurring pulmonary infections Cardiovascular/peripheral vascular: No chest pain, no palpitations, no edema, no shortness of breath Gastrointestinal: No new onset incontinence, normal bowel movements reported Genitourinary: No new onset incontinence Musculoskeletal: Low back pain, bilateral leg pain Psychiatric: [Normal mood/affect] Neurological: [Denies weakness in extremities], [denies balance issues] Objective:: Physical Exam: General: Alert and oriented x3, no acute distress, pleasant and cooperative Lungs: Respirations even and unlabored, symmetrical chest expansion Eyes: PERRL Musculoskeletal: Flexion and extension of lumbar [spine] somewhat guarded secondary to pain, [antalgic gait noted] Neurological: Speech clear, no gross sensory deficit Assessment:: Degenerative disc disease of lumbar spine with lumbar radiculopathy symptoms, low back pain with volume discrepancy, nonfunctioning intrathecal pain pump Plan:: Patient has had significant improvement following the addition of Percocet 10 mg 3 times a day. At this time he is not needing a refill. Patient does have limited range of motion of his lumbar spine due to his pain at today's visit. We have submitted for a revision/replacement of intrathecal pain pump however have not heard back at this point. Patient does have questions regarding his [id number] cost for this procedure, I have counseled him to contact the billing office for this information. We will follow-up with the patient in 3 weeks. Patient will return to clinic in 3 weeks for reevaluation of symptoms and medication refill. We will contact him once we have approval for the procedure. Patient has been advised of risks of oversedation with the prescribed medication. Narcan has been offered to the patient in the event of oversedation. Patient has been advised that a family member should also be educated regarding administration of Narcan. Patient has been instructed to contact the clinic with any concerns before the next appointment. Dr. Quinones has reviewed this note and agrees with this plan of care. This note was dictated using voice recognition software and make contain errors or omissions. [facility] Medical History (Updated 07/04/22 @ 14:30 by Doretha Alicia RN) History of chest pain Family History Other No significant family history Social History Smoking Status: Current every day smoker tobacco type: cigarettes packs per day: 1 second hand exposure: No alcohol intake: never substance use type: denies use current occupational status: employed Travel in the last 8 weeks: None household members: other housing:
[2022-07-17 10:26] VITALS: BP 132/99; PULSE 72; RESP 18; TEMP 36.1; O2SAT 99; BMI 49.5
== END ==
PROVIDERS: PCP Family Medicine; Visit Provider Nurse Practitioner Family
DX: M51.16 Intervertebral disc disorders with radiculopathy, lumbar region (principal); T85.615A Breakdown (mechanical) of other nervous system device, implant or graft, initial encounter
CPT/HCPCS: 99212; G0463

== ENCOUNTER → 2022-08-14 09:44 | Outpatient (POV) | payer BC, OTHER, SELFPAY ==
--- NOTE | 2022-08-14 10:31 | EXP.PAIN.SOA ---
[facility] Pain Management SOAP Note Subjective:: Patient is a pleasant 41-year-old male who presents for follow-up and medication refill. We are currently treating the patient for degenerative disc disease of lumbar spine with lumbar radiculopathy symptoms, low back pain with volume discrepancy, nonfunctioning intrathecal pain pump. Today the patient rates his pain a 6 out of 10. He states the pain is in his low back that radiates into his lower extremities. Patient denies any new trauma or injury. He denies any change to location or type of pain he experiences. He is currently managed with Percocet 10 mg 3 times a day. Patient denies any side effects from this medication. He states this medication does adequately manage his pain. We are currently waiting to hear back from insurance regarding a revision/replacement of his current nonfunctioning intrathecal pain pump. His pump currently has been turned off. His Perry is [id number]. It is been reviewed and appropriate. Review of Systems: General: No recent weight changes, no fever, no sleep disturbances Respiratory: No cough, no shortness of air, no recurring pulmonary infections Cardiovascular/peripheral vascular: No chest pain, no palpitations, no edema, no shortness of breath Gastrointestinal: No new onset incontinence, normal bowel movements reported Genitourinary: No new onset incontinence Musculoskeletal: Low back pain, bilateral leg pain Psychiatric: [Normal mood/affect] Neurological: [Denies weakness in extremities], [denies balance issues] Objective:: Physical Exam: General: Alert and oriented x3, no acute distress, pleasant and cooperative Lungs: Respirations even and unlabored, symmetrical chest expansion Eyes: PERRL Musculoskeletal: Flexion and extension of lumbar [spine] somewhat guarded secondary to pain, [antalgic gait noted] Neurological: Speech clear, no gross sensory deficit Assessment:: Degenerative disc disease of lumbar spine with lumbar radiculopathy symptoms, low back pain with volume discrepancy, nonfunctioning intrathecal pain pump Plan:: Patient continues to have significant pain in his low back and his bilateral lower extremities. We are currently waiting for approval from insurance to replace his nonfunctioning intrathecal pain pump. I will refill the patient's Percocet 10 mg 3 times a day and provide a 1 month supply of this medication. We will contact the patient once we have approval for his surgical procedure. Patient will return to clinic in 1 month for reevaluation of symptoms and medication refill. Patient has been advised of risks of oversedation with the prescribed medication. Narcan has been offered to the patient in the event of oversedation. Patient has been advised that a family member should also be educated regarding administration of Narcan. Patient has been instructed to contact the clinic with any concerns before the next appointment. Dr. Quinones has reviewed this note and agrees with this plan of care. This note was dictated using voice recognition software and make contain errors or omissions. It Is medically necessary for this patient to continue to have their intrathecal pump refilled at regular intervals. This patient had an intrathecal pain pump implanted after meeting criteria of chronic intractable pain for greater than 3 months and failing conservative treatments. Patient has committed and been compliant to the treatment plan and all planned follow up care. Since implantation of the intrathecal pain pump, the patient has had decreased pain and been more functional. Oral medications have been reduced including intake of oral opioids. Patient continues to do well with intrathecal therapy with decrease in pain symptoms and increase in functional status. Stopping intrathecal medications can lead to life threatening withdrawal, seizures, cardiac arrest, severe pain, and possible . Pumps that are not refilled at regular intervals can be damages and cause a
[2022-08-14 10:48] VITALS: BP 122/91; PULSE 85; RESP 18; TEMP 36.6; O2SAT 97; BMI 40.6
== END | disposition home or self-care (01) ==
PROVIDERS: PCP Family Medicine; Visit Provider Nurse Practitioner Family
DX: M51.16 Intervertebral disc disorders with radiculopathy, lumbar region (principal); T85.615A Breakdown (mechanical) of other nervous system device, implant or graft, initial encounter; Z72.0 Tobacco use
CPT/HCPCS: 99212; G0463

== ENCOUNTER → 2022-09-11 12:45 | Outpatient (CLI) | payer BC, OTHER, SELFPAY ==
[2022-09-11 13:19] LABS: Adenovirus,PCR Not Detected (NotDetected); Bordetella Pertussis Not Detected (NotDetected); Chlamydophila Pneumoniae, PCR Not Detected (NotDetected); Coronavirus 19, PCR Not Detected (NotDetected); Coronavirus 229E Not Detected (NotDetected); Coronavirus NL63 Not Detected (NotDetected); Coronavirus OC43 Not Detected (NotDetected); Coronovirus HKU1,PCR Not Detected (NotDetected); Human Metapneumovirus Not Detected (NotDetected); Influenza A, PCR Not Detected (NotDetected); Influenza AH1, 2009 Not Detected (NotDetected); Influenza AH1, PCR Not Detected (NotDetected); Influenza AH3,PCR Not Detected (NotDetected); Influenza B, PCR Not Detected (NotDetected); Mycoplasma Pneumoniae, PCR Not Detected (NotDetected); Parainfluenza 1, PCR Not Detected (NotDetected); Parainfluenza 2, PCR Not Detected (NotDetected); Parainfluenza 3, PCR Not Detected (NotDetected); Parainfluenza 4, PCR Not Detected (NotDetected); Respiratory Syncytial Virus Not Detected (NotDetected); Rhinovirus/Enterovirus Not Detected (NotDetected)
[2022-09-11 13:32] LABS: Basophils # 0.2 K/mm3 (0-0.2); Basophils % 1.1 % (0.1-2.0); Eosinophils # 0.5 K/mm3 (0.0-0.4); Eosinophils % 3.5 % (0.1-12.0); Hematocrit 45.3 % (42.0-52.0); Hemoglobin 14.8 g/dL (14.1-18.0); Lymphocytes # 3.8 K/mm3 (0.7-4.5); Lymphocytes % 27.9 % (10-50); Mean Corpuscular HGB Conc 32.7 g/dL (31.8-35.4); Mean Corpuscular Hemoglobin 28.7 pg (27.0-31.2); Mean Corpuscular Volume 87.8 fl (80-94); Mean Platelet Volume 8.4 fl (7.4-10.4); Monocytes # 0.6 K/mm3 (0.1-1.0); Monocytes % 4.2 % (1.7-9.3); Neutrophils # 8.6 K/mm3 (1.8-7.8); Neutrophils % 63.4 % (37.0-80.0); Platelet Count 398 K/mm3 (142-424); Red Blood Count 5.17 M/mm3 (4.60-6.20); Red Cell Distribution Width 14.8 % (11.5-17.5); White Blood Count 13.5 K/mm3 (4.8-10.8)
[2022-09-11 14:02] LABS: Strep Scrn Group A (Rapid) Negative (Negative)
== END ==
PROVIDERS: PCP Family Medicine; Visit Provider Family Medicine
DX: Z20.822 Contact with and (suspected) exposure to COVID-19 (principal)
CPT/HCPCS: 36415; 85025; 87430; 87581; 87632; 87798; C9803; U0003; U0005

== ENCOUNTER 2022-09-22 07:50 | Emergency (ER) | payer BC, OTHER, SELFPAY ==
[2022-09-22 07:21] VITALS: BMI 51.0
--- NOTE | 2022-09-22 07:22 | XR_ITS ---
FINAL REPORT CLINICAL HISTORY: COUGH, fever, fatigue, chills COMPARISON: May 2022 FINDINGS: CHEST TWO-VIEW The lungs are clear. There is no evidence of effusion or other pleural disease. The mediastinum as a normal appearance. The cardiac silhouette is unremarkable. IMPRESSION: No acute findings. Reviewed, Interpreted and Dictated by Mack Rojas MD Transcribed by Prasanna Mejia [facility]henticated and [facility]
[2022-09-22 07:23] VITALS: BP 123/61; PULSE 82; O2SAT 96
[2022-09-22 07:25] VITALS: BP 123/61; PULSE 84; RESP 20; TEMP 37.8; O2SAT 97; BMI 51.0
[2022-09-22 07:30] VITALS: PULSE 85; O2SAT 98
[2022-09-22 07:36] LABS: Coronavirus 19, PCR Not Detected (NotDetected); Influenza B, PCR Not Detected (NotDetected)
[2022-09-22 07:37] LABS: Strep Scrn Group A (Rapid) Negative (Negative)
--- NOTE | 2022-09-22 07:39 | PC.NURSE ---
Radiology notified of chest xr
--- NOTE | 2022-09-22 07:48 | PC.NURSE ---
PT TO RADIOLOGY AT THIS TIME
--- NOTE | 2022-09-22 07:55 | PC.NURSE ---
PT RETURNED FROM XR
[2022-09-22 07:57] LABS: Influenza A, PCR Detected (NotDetected)
--- NOTE | 2022-09-22 07:59 | PC.NURSE ---
DR. NEVES AT BEDSIDE
[2022-09-22 08:01] VITALS: BP 122/64; PULSE 82; O2SAT 93
--- NOTE | 2022-09-22 08:02 | HMH.EDGENADL ---
Discharge Plan Disposition Chief Complaint: Upper Respiratory Infection Prescriptions Prescriptions: No Action furosemide 40 MG tablet 40 mg PO DAILY potassium chloride 10 MEQ capsule, extended release 10 meq PO DAILY ibuprofen 800 MG tablet 800 mg PO DAILY omeprazole 40 MG capsule,delayed release(DR/EC) 40 mg PO DAILY prednisone 5 MG tablet 5 mg PO DAILY etanercept 50 MG/ML syringe 50 mg SQ WEEKLY oxycodone-acetaminophen [Percocet] 10-325 mg tablet 1 tab PO TID Qty: 90 0RF sulfamethoxazole-trimethoprim 1 EACH tablet 1 each PO BID pregabalin 75 MG capsule 75 mg PO BID Discharge ED Provider: Laureano Walker General Adult HPI General Chief complaint: Upper Respiratory Infection Stated complaint: FEVER Time Seen by Provider: 09/22/22 07:58 Mode of Arrival: EMS Limitations: No Limitations Description of Symptoms (Recalled from ER Triage Doc. by RN): PT BROUGHT IN VIA EMS FOR FEVER, COUGH, BODY ACHES, CONGESTION AND SORE THROAT SINCE THURSDAY. CURRENTLY ON ABX FOR URI. History of Present Illness HPI narrative: Patient presents with cough and sore throat, fever and chills that began yesterday. Symptoms are described as mild to moderate without exacerbating alleviating factors. His cough is been nonproductive in nature. He has had recent sick contacts. Related Data Home Medications Medication Instructions Recorded Confirmed etanercept 50 mg/mL (1 mL) 50 mg SQ WEEKLY Arthritis 11/19/21 08/14/22 subcutaneous syringe furosemide 40 mg tablet 40 mg PO DAILY fluid 11/19/21 08/14/22 ibuprofen 800 mg tablet 800 mg PO DAILY Pain 11/19/21 08/14/22 omeprazole 40 mg capsule,delayed 40 mg PO DAILY GERD 11/19/21 08/14/22 release potassium chloride 10 mEq 10 meq PO DAILY supplement 11/19/21 08/14/22 capsule,extended release prednisone 5 mg tablet 5 mg PO DAILY steroid 11/19/21 08/14/22 sulfamethoxazole 800 1 each PO BID Infection 03/03/22 08/14/22 mg-trimethoprim 160 mg tablet pregabalin 75 mg capsule 75 mg PO BID Pain 05/02/22 08/14/22 Previous Rx's Medication Instructions Recorded oxycodone-acetaminophen 10 mg-325 1 tab PO TID Pain #90 tabs 08/14/22 mg tablet (Percocet) Allergies Allergy/AdvReac Type Severity Reaction Status Date / Time morphine [MORPHINE] Allergy Unknown Verified 07/04/22 14:23 [facility] Allergy Unknown Uncoded 01/13/19 10:[address] [facility] Medical History History of chest pain Rheumatoid arthritis Family History Other No significant family history Social History Smoking Status: Current every day smoker tobacco type: cigarettes packs per day: 1 second hand exposure: No alcohol intake: never substance use type: denies use current occupational status: employed Travel in the last 8 weeks: None household members: other housing: other current occupational exposures/hazards: No caffeine: Yes ROS Obtained: Yes All systems reviewed & no additional complaints except as documented Physical Exam General General appearance: alert and in no apparent distress Head Head exam: atraumatic, normocephalic and normal inspection Eye Eye exam: Present normal appearance, PERRL and EOMI ENT ENT exam: Present other (Pharyngeal erythema) Neck Neck exam: Present normal inspection, full ROM and trachea midline; Absent meningismus or lymphadenopathy Chest Chest inspection: Present normal inspection and symmetric chest wall rise; Absent tenderness Respiratory Respiratory exam: Present normal lung sounds bilaterally; Absent respiratory distress Cardiovascular Cardiovascular exam: Present regular rate and normal rhythm; Absent JVD Abdominal Exam Abdominal exam: Present soft and normal bowel sounds; Absent distention, tenderness or guarding Extremities Exam Extremities exam: Pre
--- NOTE | 2022-09-22 08:14 | PC.NURSE ---
DR. NEVES AT BEDSIDE FOR REEVALUATION
[2022-09-22 08:41] VITALS: BP 122/64; PULSE 88; RESP 18; TEMP 37.8; O2SAT 95
== END 2022-09-22 08:43 | disposition home or self-care (01) ==
PROVIDERS: Emergency Medicine; Emergency Provider Emergency Medicine
DX: J10.1 Influenza due to other identified influenza virus with other respiratory manifestations (principal)
CPT/HCPCS: 71046; 87430; 94640; 99283; C9803; U0003; U0005

== ENCOUNTER → 2022-10-13 14:11 | Outpatient (POV) | payer BC, OTHER, SELFPAY ==
[2022-10-13 14:41] VITALS: BP 136/92; PULSE 72; RESP 18; O2SAT 98; BMI 42.5
--- NOTE | 2022-10-13 15:57 | A.OFFVIS_ITS ---
[facility] Pain Management SOAP Note Subjective:: Patient is a pleasant 42-year-old male who is here for medication refill and follow-up. Patient is currently being treated for degenerative disc disease of the lumbar spine with lumbar radiculopathy symptoms. Patient is being managed with Percocet 10 mg 3 times a day. Patient denies any side effects from the medications. Patient denies any changes to the location and type of pain. Patient states that this is adequately helping manage their pain. Rates pain as 5 out of 10. [facility] number [id number] with an active morphine equivalent 0. Drug screens have been reviewed and appropriate. Patient also has an intrathecal pain pump that was providing significant relief for 2 to 3 months. However, he started to have some volume discrepancy in his intrathecal pain pump. It is found that he needs to get his intrathecal pain pump changed however his insurance would not cover it. He will be changing his insurance in May. We will revisit then to see if his new insurance would cover a replacement of a non-functioning intrathecal pain pump. Review of Systems: General: No recent weight changes, no fever, no sleep disturbances Respiratory: No cough, no shortness of air, no recurring pulmonary infections Cardiovascular/peripheral vascular: No chest pain, no palpitations, no edema, no shortness of breath Gastrointestinal: No new onset incontinence, normal bowel movements reported Genitourinary: No new onset incontinence Musculoskeletal: Low back pain Psychiatric: [Normal mood/affect] Neurological: [Denies weakness in extremities], [denies balance issues] Objective:: Physical Exam: General: Alert and oriented x3, no acute distress, pleasant and cooperative Lungs: Respirations even and unlabored, symmetrical chest expansion Eyes: PERRL Musculoskeletal: Flexion and extension of lumbar [spine] somewhat guarded secondary to pain, [antalgic gait noted] Neurological: Speech clear, no gross sensory deficit Assessment:: Degenerative disc disease of lumbar spine with lumbar radiculopathy symptoms Plan:: We will continue the patient's Percocet 10 mg 3 times a day. We will provide the patient with 1 month of refills. We would like to see the patient back in 1 month for follow-up and reevaluation of chronic pain syndrome. Patient has been advised of risks of oversedation with the prescribed medication. Narcan has been offered to the patient in the event of oversedation. Patient has been advised that a family member should also be educated regarding administration of Narcan. Patient has been instructed to contact the clinic with any concerns before the next appointment. Dr. Quinones has reviewed this note and agrees with this plan of care. This note was dictated using voice recognition software and make contain errors or omissions. [facility] Disclaimer: The information contained in this section may have been updated after the patient was seen, as this information can be updated by other users. Medical History History of chest pain Rheumatoid arthritis Family History Other No significant family history Social History Smoking Status: Current every day smoker tobacco type: cigarettes packs per day: 1 second hand exposure: No alcohol intake: never substance use type: denies use current occupational status: employed Travel in the last 8 weeks: None household members: other housing: other current occupational exposures/hazards: No
== END | disposition home or self-care (01) ==
PROVIDERS: PCP Family Medicine; Visit Provider Student in an Organized Health Care Education/Training Program
DX: M51.16 Intervertebral disc disorders with radiculopathy, lumbar region (principal); F17.210 Nicotine dependence, cigarettes, uncomplicated
CPT/HCPCS: 99212; G0463

== ENCOUNTER → 2022-11-12 14:17 | Outpatient (POV) | payer BC, OTHER, SELFPAY ==
--- NOTE | 2022-11-12 15:03 | EXP.PAIN.SOA ---
[facility] Pain Management SOAP Note Subjective:: Patient is a pleasant 41-year-old male who presents today for medication refill and follow-up. We are currently treating the patient for degenerative disc disease of lumbar spine with lumbar radiculopathy symptoms. Today he rates his pain a 7 out of 10. Patient denies any new trauma or injury. Patient denies any change location or type of pain he experiences. Patient does state he continues to have low back pain with radiating symptoms into his legs however he is doing well with his Percocet 10 mg 3 times a day. Patient denies any side effects from this medication. He states it has helped regulate his bowels and gets quick relief with it. Patient does have arthritis that he states has been bothering him with the cold weather. Patient does have a intrathecal pain pump that is nonfunctioning and was turned off. Patient does need this replaced however his insurance would not cover it. Patient is questioning whether or not if he will put in a new pump following this removal. Patient states unfortunately he cannot take off from work without pay until around May. His Perry is [id number]. Its been reviewed and appropriate. Review of Systems: General: No recent weight changes, no fever, no sleep disturbances Respiratory: No cough, no shortness of air, no recurring pulmonary infections Cardiovascular/peripheral vascular: No chest pain, no palpitations, no edema, no shortness of breath Gastrointestinal: No new onset incontinence, normal bowel movements reported Genitourinary: No new onset incontinence Musculoskeletal: Low back pain Psychiatric: [Normal mood/affect] Neurological: [Denies weakness in extremities], [denies balance issues] Objective:: Physical Exam: General: Alert and oriented x3, no acute distress, pleasant and cooperative Lungs: Respirations even and unlabored, symmetrical chest expansion Eyes: PERRL Musculoskeletal: Flexion and extension of lumbar [spine] somewhat guarded secondary to pain, [antalgic gait noted] Neurological: Speech clear, no gross sensory deficit ORT score updated with low risk Assessment:: Degenerative disc disease of lumbar spine with lumbar radiculopathy symptoms Plan:: Patient continues to experience significant pain in his low back radiating into his legs however he is doing well with his current medication regimen. I will refill the patient's Percocet 10 mg 3 times a day and provide a 1 month supply of this medication. Patient will return to clinic in 1 month for reevaluation of symptoms, medication refill and follow-up. Patient has been advised of risks of oversedation with the prescribed medication. Narcan has been offered to the patient in the event of oversedation. Patient has been advised that a family member should also be educated regarding administration of Narcan. Patient has been instructed to contact the clinic with any concerns before the next appointment. Dr. Quinones has reviewed this note and agrees with this plan of care. This note was dictated using voice recognition software and make contain errors or omissions. [facility] Disclaimer: The information contained in this section may have been updated after the patient was seen, as this information can be updated by other users. Medical History History of chest pain Rheumatoid arthritis Family History Other No significant family history Social History Smoking Status: Current every day smoker tobacco type: cigarettes packs per day: 1 second hand exposure: No alcohol intake: never substance use type: denies use current occupational status: employed Travel in the last 8 weeks: None household members: other housing: other current occupational exposures/hazards: No caffeine: Yes
[2022-11-12 15:32] VITALS: BP 122/89; PULSE 78; RESP 18; O2SAT 97; BMI 50.1
== END | disposition home or self-care (01) ==
PROVIDERS: PCP Family Medicine; Visit Provider Nurse Practitioner Family
DX: M51.16 Intervertebral disc disorders with radiculopathy, lumbar region (principal); F17.210 Nicotine dependence, cigarettes, uncomplicated
CPT/HCPCS: 99212; G0463

== ENCOUNTER → 2022-12-09 10:02 | Outpatient (POV) | payer BC, OTHER, SELFPAY ==
[2022-12-09 10:16] VITALS: BP 132/77; PULSE 81; RESP 20; TEMP 36.2; O2SAT 98; BMI 48.2
--- NOTE | 2022-12-09 11:15 | A.OFFVIS_ITS ---
[facility] Pain Management SOAP Note Subjective:: This patient is a pleasant 41-year-old male that comes our clinic today for medication refill and follow-up. Patient currently has a nonfunctioning intrathecal pain pump. A couple of months ago the patient suffered a fall and landed on his low back. While falling he hit a doorknob over the intrathecal pain pump. Immediately, he had pain over the pain pump area. Patient was evaluated by us and the pump was determined malfunctioning. Pump was discontinued. Patient was placed on Percocet 10 mg 1 p.o. 3 times daily. Patient requesting the pump be removed. He is not interested in having a new intrathecal pain pump implanted. Patient reports doing very well on his current medication of oxycodone 10 mg 1 p.o. 3 times daily. He would like to continue with oral medication. 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. His Perry #[id number] is been reviewed and appropriate. His UDS is been appropriate in the past. Upon examination patient has extreme point tenderness over the intrathecal pain pump which is located in the right low lumbar area. Objective:: Patient is awake alert [place] x3. In no acute distress. Flexion-extension lumbar spine somewhat guarded secondary to pain. Deep tendon reflexes upper lower extremities normal. Motor strength upper lower extremities normal. There is no gross sensory deficit. Gait is normal. Assessment:: Degenerative disc disease lumbar spine multilevels. Lumbar radiculopathy. Plan:: We will schedule the patient for intrathecal pain pump explant. We will send in refill for oxycodone 10 mg 1 p.o. 3 times daily. Patient states the pain medicine does help significantly with his overall low back pain as well as bilateral hip and leg radicular symptoms. He does not report any side effects from the pain medication. [facility] Disclaimer: The information contained in this section may have been updated after the patient was seen, as this information can be updated by other users. Medical History History of chest pain Rheumatoid arthritis Family History Other No significant family history Social History Smoking Status: Current every day smoker tobacco type: cigarettes packs per day: 1 second hand exposure: No alcohol intake: never substance use type: denies use current occupational status: other Travel in the last 8 weeks: None household members: other housing: other current occupational exposures/hazards: No caffeine: Yes
== END | disposition home or self-care (01) ==
PROVIDERS: PCP Family Medicine; Visit Provider Nurse Anesthetist, Certified Registered
DX: T85.615A Breakdown (mechanical) of other nervous system device, implant or graft, initial encounter (principal); M51.16 Intervertebral disc disorders with radiculopathy, lumbar region
CPT/HCPCS: 99212; G0463

== ENCOUNTER → 2022-12-15 14:06 | Outpatient (POV) | payer BC, OTHER, SELFPAY ==
[2022-12-15 14:37] VITALS: BP 133/97; PULSE 84; RESP 18; O2SAT 97; BMI 47.5
--- NOTE | 2022-12-15 14:52 | EXP.PAIN.SOA ---
[facility] Pain Management SOAP Note Subjective:: Patient is a pleasant 42-year-old male who presents today for medication refill and follow-up. We are currently treating the patient for degenerative disc disease of lumbar spine with lumbar radiculopathy symptoms, nonfunctioning intrathecal pain pump. Today he rates his pain an 8 out of 10. Patient states that he recently hit a doorknob against his pain pump and did have significant pain and nausea. Patient does state it continues to be tender to touch however he has no bruising or swelling. Patient states he continues to experience low back pain with bilateral leg pain and occasional pain in his shoulders. Patient is currently managed with Percocet 10 mg 3 times a day. Patient denies any side effects from this medication. He states this medication does help manage his pain symptoms. He is requesting a refill at today's visit. Patient does use occasional ibuprofen as needed for additional relief. 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 Patient is planning on having his nonfunctioning pump removed in May of this year when he is able to have more vacation time available from his work. Patient's Perry is [id number]. Its been reviewed and appropriate. Review of Systems: General: No recent weight changes, no fever, no sleep disturbances Respiratory: No cough, no shortness of air, no recurring pulmonary infections Cardiovascular/peripheral vascular: No chest pain, no palpitations, no edema, no shortness of breath Gastrointestinal: No new onset incontinence, normal bowel movements reported Genitourinary: No new onset incontinence Musculoskeletal: Low back pain, shoulder pain Psychiatric: [Normal mood/affect] Neurological: [Denies weakness in extremities], [denies balance issues] Objective:: Physical Exam: General: Alert and oriented x3, no acute distress, pleasant and cooperative Lungs: Respirations even and unlabored, symmetrical chest expansion Eyes: PERRL Musculoskeletal: Flexion and extension of lumbar [spine] somewhat guarded secondary to pain, [antalgic gait noted] Neurological: Speech clear, no gross sensory deficit Assessment:: Degenerative disc disease of lumbar spine with lumbar radiculopathy symptoms, nonfunctioning intrathecal pain pump, shoulder pain Plan:: Patient continues to experience significant pain in his low back with radiating symptoms and limited range of motion. I will refill the patient's Percocet 10 mg 3 times a day and provide a 1 month supply of this medication. I will also order the patient new prescriptions of compounding cream and methocarbamol 750 mg 3 times daily as needed and provide a 1 month supply of this medication. Patient will return to clinic in 1 month for reevaluation of symptoms, medication refill and plan of care. Patient has been advised of risks of oversedation with the prescribed medication. Narcan has been offered to the patient in the event of oversedation. Patient has been advised that a family member should also be educated regarding administration of Narcan. Patient has been instructed to contact the clinic with any concerns before the next appointment. Dr. Quinones has reviewed this note and agrees with this plan of care. This note was dictated using voice recognition software and make contain errors or omissions. [facility] Disclaimer: The information contained in this section may have been updated after the patient was seen, as this information can be updated by other users. Medical History History of chest pain Rheumatoid arthritis Family History Other No significant family history Social History Smoking Status: Current every day smoker tobacco type: cigarettes packs per day: 1 second hand exposure: No alcohol intake: never substance use type: denies
== END | disposition home or self-care (01) ==
PROVIDERS: PCP Family Medicine; Visit Provider Nurse Practitioner Family
DX: M51.16 Intervertebral disc disorders with radiculopathy, lumbar region (principal); M25.519 Pain in unspecified shoulder; Z79.899 Other long term (current) drug therapy; T85.695D Other mechanical complication of other nervous system device, implant or graft, subsequent encounter
CPT/HCPCS: 99212; G0463

== ENCOUNTER 2022-12-28 11:45 | Emergency (ER) | payer BC, OTHER, SELFPAY ==
[2022-12-28] VITALS (7 sets, daily range): BP systolic 122–150; BP diastolic 62–98; PULSE 74–90; RESP 16–20; TEMP 36.8; O2SAT 94–98; BMI 51.0
--- NOTE | 2022-12-28 12:34 | CT_ITS ---
PROCEDURE INFORMATION: Exam: CT Abdomen And Pelvis With Contrast Exam date and time: 12/28/2022 1:24 PM Age: 42 years old Clinical indication: Abdominal tenderness and bloating and other: Rectal bleeding; Additional info: Rectal bleeding, abdo distension/tenderness TECHNIQUE: Imaging protocol: Computed tomography of the abdomen and pelvis with contrast. Radiation optimization: All CT scans at this facility use at least one of these dose optimization techniques: automated exposure control; mA and/or kV adjustment per patient size (includes targeted exams where dose is matched to clinical indication); or iterative reconstruction. Contrast material: ISOVUE; Contrast volume: 75 ml; Contrast route: IV; REPORTING DATA: Count of CT and Cardiac NM exams in prior 12 months: This patient has received 0 known CTs and 0 known cardiac nuclear medicine studies in the 12 months prior to the current study. COMPARISON: MR PELVIS W CON 06/20/2020 11:29 AM FINDINGS: Tubes, catheters and devices: There is an epidural catheter terminating at T11 level. Lungs: Lung bases are unremarkable. Liver: Hepatic steatosis noted. No focal hepatic lesions. Gallbladder and bile ducts: There has been a cholecystectomy. No biliary ductal dilation. Pancreas: No peripancreatic fluid stranding. No main pancreatic ductal dilation. Spleen: Multiple splenic granulomas Adrenal glands: The adrenal glands are normal. Kidneys and ureters: Nephrograms are symmetric. No nephrolithiasis or hydroureteronephrosis on either side. No solid lesions Stomach and bowel: No bowel wall thickening or distention. Appendix: A normal appendix is identified. Intraperitoneal space: There is no evidence of free intraperitoneal or pelvic fluid. Vasculature: Aorta is nonaneurysmal. Lymph nodes: No evidence of retroperitoneal or mesenteric lymphadenopathy. Urinary bladder: Urinary bladder is unremarkable. Reproductive: Unremarkable as visualized. Bones/joints: No acute osseous abnormality. Soft tissues: Unremarkable. IMPRESSION: No evidence of hemorrhagic source or acute abnormality in the abdomen or pelvis.
--- NOTE | 2022-12-28 12:35 | HMH.EDGENADL ---
Discharge Plan Disposition Patient Disposition: Home, Self-Care Condition: Good Chief Complaint: GI Bleed Prescriptions Prescriptions: No Action furosemide 40 MG tablet 40 mg PO DAILY potassium chloride 10 MEQ capsule, extended release 10 meq PO DAILY ibuprofen 800 MG tablet 800 mg PO DAILY omeprazole 40 MG capsule,delayed release(DR/EC) 40 mg PO DAILY etanercept 50 MG/ML syringe 50 mg SQ WEEKLY pregabalin 75 MG capsule 75 mg PO BID methocarbamol 750 mg tablet 750 mg PO Q8H Qty: 90 0RF oxycodone-acetaminophen [Percocet] 10-325 mg tablet 1 tab PO TID Qty: 90 0RF Referrals Follow up/Referrals: Nacho Bronson MD [Primary Care Provider] - See instructions Activity Restrictions/Add. Instructions Additional Instructions/Restrictions: Follow-up with Dr. Bronson, call for appointment. Return to the emergency department if worsening bleeding or severe abdominal pain, fever, vomiting, or vomiting of blood. Clinical Impressions Clinical Impression: Bright red rectal bleeding Instructions Patient Instructions: DI for Gastrointestinal Bleeding Discharge ED Provider: Jameel Mike General Adult HPI General Chief complaint: GI Bleed Stated complaint: Bloody stool Intrathecal pump Time Seen by Provider: 12/28/22 12:28 Mode of Arrival: Ambulatory Source of Information: Patient Limitations: No Limitations Description of Symptoms (Recalled from ER Triage Doc. by RN): pt to ed c/o bright red blood in his stool that started last night. pt denies any pain. pt reports he had a pain pump placed by dr anne x2 years ago. pt states he hit his pump on a door knob > 2 weeks ago and has seen dr anne x2 since. pt states he is concered his pump is dislodged and he is bleding internally. History of Present Illness HPI narrative: States that he has had 2 episodes of rectal bleeding since last night. The first was a large male, second time was small amount. Denies rectal pain. His abdomen feels distended and is tender to touch. No vomiting of blood. States that he had an episode of rectal bleeding about 2 or 3 years ago, he thinks he was seen at [facility]. He says he was diagnosed with a hemorrhoid. He says he has never had a colonoscopy. He is concerned because he has a pain pump that he damaged a little over 2 weeks ago by hitting it with a doorknob. It is not working. He is concerned that because of this incident with the pain pump that the pain pump might be causing his internal bleeding. Denies fever. Denies diarrhea. Related Data Home Medications Medication Instructions Recorded Confirmed etanercept 50 mg/mL (1 mL) 50 mg SQ WEEKLY Arthritis 11/19/21 12/15/22 subcutaneous syringe furosemide 40 mg tablet 40 mg PO DAILY fluid 11/19/21 12/15/22 ibuprofen 800 mg tablet 800 mg PO DAILY Pain 11/19/21 12/15/22 omeprazole 40 mg capsule,delayed 40 mg PO DAILY GERD 11/19/21 12/15/22 release potassium chloride 10 mEq 10 meq PO DAILY supplement 11/19/21 12/15/22 capsule,extended release pregabalin 75 mg capsule 75 mg PO BID Pain 05/02/22 12/15/22 Previous Rx's Medication Instructions Recorded methocarbamol 750 mg tablet 750 mg PO Q8H #90 tabs 12/15/22 oxycodone-acetaminophen 10 mg-325 1 tab PO TID Pain #90 tabs 12/15/22 mg tablet (Percocet) Allergies Allergy/AdvReac Type Severity Reaction Status Date / Time morphine [MORPHINE] Allergy Unknown Verified 07/04/22 14:23 BEE STING Allergy Unknown Uncoded 01/13/19 10:32 [facility] Disclaimer: The information contained in this section may have been updated after the patient was seen, as this information can be updated by other users. Medical History History of chest pain Rheumatoid arthritis Family History Other No significant family history Social History (Reviewed 09/22/22 @ 08:02
--- NOTE | 2022-12-28 13:12 | PC.NURSE ---
checked on pt vidal horowitz was in room, pt had no complaints
[2022-12-28 13:19] LABS: Alanine Aminotransferase 34 U/L (12-78); Albumin/Globulin Ratio 1.3 (1.1-1.8); Alkaline Phosphatase 113 U/L (38-126); Anion Gap 9.6 mEq/L (5-15); Aspartate Amino Transferase 34 U/L (17-59); Bilirubin,Total 0.6 mg/dl (0.2-1.3); Blood Urea Nitrogen 9 mg/dl (9-20); Calcium 8.6 mg/dl (8.4-10.2); Carbon Dioxide 25 mmol/L (22.0-30.0); Chloride 108 mmol/L (98-107); Creatinine Clearance Estimated 116 mL/min (50-200); Estimated Glomerular Filt Rate 92 ml/min (>60); GFR (African American) 111 ML/MIN (>60); Globulin 3.2 g/dL (1.3-3.2); Glucose 102 mg/dl (74-100); Potassium 4.6 mmoL/L (3.5-5.1); Sodium 138 mmol/L (136-145); Total Protein,Serum 7.2 g/dl (6.3-8.2)
--- NOTE | 2022-12-28 13:28 | PC.NURSE ---
Pt. back from CT
[2022-12-28 13:34] LABS: Basophils # 0.2 K/mm3 (0-0.2); Basophils % 1.3 % (0.1-2.0); Eosinophils # 0.4 K/mm3 (0.0-0.4); Hematocrit 46.9 % (42.0-52.0); Hemoglobin 15.7 g/dL (14.1-18.0); Lymphocytes % 22.7 % (10-50); Mean Corpuscular HGB Conc 33.5 g/dL (31.8-35.4); Mean Corpuscular Hemoglobin 28.9 pg (27.0-31.2); Mean Corpuscular Volume 86.2 fl (80-94); Monocytes # 0.6 K/mm3 (0.1-1.0); Monocytes % 4.4 % (1.7-9.3); Neutrophils # 9.1 K/mm3 (1.8-7.8); Neutrophils % 68.7 % (37.0-80.0); Platelet Count 364 K/mm3 (142-424); Red Blood Count 5.44 M/mm3 (4.60-6.20); White Blood Count 13.2 K/mm3 (4.8-10.8)
== END 2022-12-28 15:01 | disposition home or self-care (01) ==
PROVIDERS: Emergency Provider Emergency Medicine; PCP Family Medicine
DX: K62.5 Hemorrhage of anus and rectum (principal); M06.9 Rheumatoid arthritis, unspecified; Z86.79 Personal history of other diseases of the circulatory system
CPT/HCPCS: 74177; 80053; 85025; 99284; 99285; Q9967

== ENCOUNTER → 2023-01-12 13:50 | Outpatient (POV) | payer BC, OTHER, SELFPAY ==
--- NOTE | 2023-01-12 14:41 | A.OFFVIS_ITS ---
[facility] Pain Management SOAP Note Subjective:: Patient is a pleasant 42-year-old male who presents today for medication refill and follow-up. We are currently treating the patient for degenerative disc disease of lumbar spine with lumbar radiculopathy symptoms, nonfunctioning intrathecal pain pump. Today he rates his pain a 6 out of 10. Patient denies any new trauma or injury. Patient denies any change location or type of pain he experiences. Patient is currently prescribed Percocet 10 mg 3 times a day, compounding cream and methocarbamol 750 mg 3 times a day. Patient states he has had significant improvement of his pain following the addition of the cream and the muscle relaxer. Patient denies any side effects from these medications. Patient is planning on having his pump removed in May once he has more vacation time built up. Patient's Perry is [id number]. Its been reviewed and appropriate. Review of Systems: General: No recent weight changes, no fever, no sleep disturbances Respiratory: No cough, no shortness of air, no recurring pulmonary infections Cardiovascular/peripheral vascular: No chest pain, no palpitations, no edema, no shortness of breath Gastrointestinal: No new onset incontinence, normal bowel movements reported Genitourinary: No new onset incontinence Musculoskeletal: Low back pain Psychiatric: [Normal mood/affect] Neurological: [Denies weakness in extremities], [denies balance issues] Objective:: Physical Exam: General: Alert and oriented x3, no acute distress, pleasant and cooperative Lungs: Respirations even and unlabored, symmetrical chest expansion Eyes: PERRL Musculoskeletal: Flexion and extension of lumbar [spine] somewhat guarded secondary to pain, [antalgic gait noted] Neurological: Speech clear, no gross sensory deficit Assessment:: Degenerative disc disease of lumbar spine with lumbar radiculopathy symptoms, nonfunctioning pump Plan:: Patient is doing well with his current medication regimen. I will refill his methocarbamol 750 mg 3 times a day and Percocet 10 mg 3 times a day and provide a 1 month supply of this medication. Patient will return to clinic in 1 month for reevaluation of symptoms, medication refill and follow-up. Patient has been advised of risks of oversedation with the prescribed medication. Narcan has been offered to the patient in the event of oversedation. Patient has been advised that a family member should also be educated regarding administration of Narcan. Patient has been instructed to contact the clinic with any concerns before the next appointment. Dr. Quinones has reviewed this note and agrees with this plan of care. This note was dictated using voice recognition software and make contain errors or omissions. [facility] Disclaimer: The information contained in this section may have been updated after the patient was seen, as this information can be updated by other users. Medical History History of chest pain Rheumatoid arthritis Family History Other No significant family history Social History Smoking Status: Never smoker second hand exposure: No alcohol intake: never substance use type: denies use current occupational status: employed Travel in the last 8 weeks: None household members: other housing: other current occupational exposures/hazards: No caffeine: Yes
[2023-01-12 15:39] VITALS: BP 128/88; PULSE 84; RESP 18; O2SAT 98; BMI 47.5
== END | disposition home or self-care (01) ==
PROVIDERS: PCP Family Medicine; Visit Provider Nurse Practitioner Family
DX: M51.16 Intervertebral disc disorders with radiculopathy, lumbar region (principal); T85.695A Other mechanical complication of other nervous system device, implant or graft, initial encounter
CPT/HCPCS: 99212; G0463

== ENCOUNTER → 2023-01-12 14:45 | Outpatient (CLI) | payer BC, OTHER, SELFPAY ==
[2023-01-12 16:25] LABS: Amphetamine/Metha Screen,Urine Negative ng/ml (<1000)
[2023-01-12 16:26] LABS: Barbiturates Screen,Urine Negative ng/ml (<200); Benzodiazepines Screen,Urine Negative ng/ml (<200)
[2023-01-12 16:27] LABS: Cannabinoid Screen,Urine Negative ng/ml (<50)
[2023-01-12 16:28] LABS: Cocaine Screen,Urine Negative ng/ml (<300); Methadone Screen,Urine Negative ng/ml (<300)
[2023-01-12 16:30] LABS: Opiate Screen,Urine Negative ng/ml (<300); Phencyclidine Screen,Urine Negative ng/ml (<25)
[2023-01-20 19:11] LABS: Opiates Negative (Cutoff=100); Oxycodone (GC/MS) 1336 ng/mL (Cutoff=100); Oxymorphone (GC/MS) 1032 ng/mL (Cutoff=100)
== END ==
PROVIDERS: Nurse Practitioner Family; PCP Family Medicine; Visit Provider Anesthesiology
DX: Z79.891 Long term (current) use of opiate analgesic (principal)
CPT/HCPCS: 80305; 80361; 80365; G0480

== ENCOUNTER 2023-01-22 10:27 | Day surgery (SDC) | payer BC, OTHER, SELFPAY ==
[2023-01-19 08:56] VITALS: BMI 47.7
[2023-01-22 10:51] VITALS: BP 141/88; PULSE 84; RESP 18; TEMP 36.2; O2SAT 95
[2023-01-22 11:23] VITALS: O2SAT 95
--- NOTE | 2023-01-22 11:24 | EXP.ANES.CKL ---
[facility] Disclaimer: The information contained in this section may have been updated after the patient was seen, as this information can be updated by other users. Medical History History of chest pain Implantable intrathecal infusion pump present Rheumatoid arthritis Surgical History History of cholecystectomy [place] teeth extracted Family History Family/Other Colon cancer Other Family history of diabetes mellitus type II Family history of hyperlipidemia Family history of hypertension Social History Smoking Status: Current every day smoker tobacco type: cigarettes packs per day: 1 pack-years: 15 second hand exposure: No alcohol intake: never substance use type: denies use current occupational status: employed Travel in the last 8 weeks: None household members: other housing: other lives independently: Yes marital status: education level: college service: No current occupational exposures/hazards: No caffeine: Yes special marilin needs: No agree to transfusion: No do you feel safe at home: Yes victim of physical abuse: No victim of emotional abuse: No victim of sexual abuse: No would you like helpful sources: No [facility] Anesthesia Checklist Patient Identification Patient Identification: Arm Band Structural Data Admitted From: Home Planned Operative Procedure/s: Colonoscopy Consent for Planned Operative Procedure(s) Verified: Yes Verified Documents: Surgical Consent and History and Physical NPO Status Verified Time NPO: 00:00 Additional verifications Anesthesia Reactions: No Hx Blood Transfusions: No Blood Transfusion Reaction: No Airway Assessment C-Spine Mobility Assessed: Yes TMJ Mobility Assessed: Yes Dentition: Good Dentition Neurological Assessment Level of Consciousness: Awake and Alert Anesthesia Plan Anesthesia Risk discussed: Yes Anesthesia Plan: Verified ASA Class: III Anesthesia Type: MAC
--- NOTE | 2023-01-22 11:39 | HMH.SCOPE ---
Procedure: Date: 01/22/23 Patient Date of :: 1980 Procedure Performed:: Diagnostic colonoscopy Indications:: Rectal bleeding Performing Provider:: Kaelyn Mendez MD Referring Provider:: Nacho Bronson MD Sedation:: Propofol Procedure:: After placing the patient in the left lateral decubitus position, the colonoscopy was gently inserted into the rectum and under direct visualization advanced to the cecum which was identified by transillumination in the right lower quadrant, identification of the ileocecal valve, appendiceal orifice, and cecal strap. Color, texture, mucosa, and anatomy of the colon were carefully examined with the scope. Findings:: Anal canal: normal Rectum: Grossly normal, visualization impaired due to residual stools Sigmoid colon: normal without polyps or inflammatory changes Descending colon: normal without polyps or inflammatory changes Splenic flexure: normal Transverse colon: normal without polyps or inflammatory changes Hepatic flexure: normal Ascending colon: normal without polyps or inflammatory changes Cecum: normal Terminal ileum: not visualized Note: Colon prep was poor with much residual stool still seen throughout the entire colon. Washing and suctioning performed Impression: Grossly normal colonoscopy. Visualization impaired due to poor prep with much residual stool. Recommendations:: Consider repeat colonoscopy with better prep in THREE years or so Sooner if clinically indicated. Complications:: none Estimated blood obtained (mL): 0
[2023-01-22 11:40] VITALS: BP 137/70; PULSE 84; RESP 18; TEMP 36.1; O2SAT 91
[2023-01-22 11:50] VITALS: BP 138/87; PULSE 85; RESP 18; TEMP 36.1; O2SAT 99
[2023-01-22 12:00] VITALS: BP 130/80; PULSE 87; RESP 18; TEMP 36.1; O2SAT 99
[2023-01-22 12:10] VITALS: BP 136/82; PULSE 84; RESP 18; TEMP 36.1; O2SAT 99
== END 2023-01-22 12:10 | disposition home or self-care (01) ==
PROVIDERS: PCP Family Medicine; Visit Provider Internal Medicine Gastroenterology
PROC: 0DJD8ZZ Inspection of Lower Intestinal Tract, Via Natural or Artificial Opening Endoscopic (ICD-10-PCS; CPT 45378; principal; 2023-01-22 11:30)
DX: K62.5 Hemorrhage of anus and rectum (principal); F17.210 Nicotine dependence, cigarettes, uncomplicated; Z79.899 Other long term (current) drug therapy
CPT/HCPCS: 45378

== ENCOUNTER → 2023-02-04 10:01 | Outpatient (CLI) | payer BC, OTHER, SELFPAY ==
[2023-02-04 10:53] LABS: Basophils # 0.1 K/mm3 (0-0.2); Basophils % 0.6 % (0.1-2.0); Eosinophils # 0.4 K/mm3 (0.0-0.4); Eosinophils % 3.6 % (0.1-12.0); Hemoglobin 15.6 g/dL (14.1-18.0); Lymphocytes # 4.1 K/mm3 (0.7-4.5); Lymphocytes % 36.7 % (10-50); Mean Corpuscular HGB Conc 33.3 g/dL (31.8-35.4); Mean Corpuscular Hemoglobin 28.9 pg (27.0-31.2); Mean Corpuscular Volume 86.9 fl (80-94); Mean Platelet Volume 8.3 fl (7.4-10.4); Monocytes # 0.5 K/mm3 (0.1-1.0); Monocytes % 4.5 % (1.7-9.3); Neutrophils % 54.7 % (37.0-80.0); Platelet Count 321 K/mm3 (142-424); Red Blood Count 5.41 M/mm3 (4.60-6.20); Red Cell Distribution Width 13.9 % (11.5-17.5)
[2023-02-04 11:18] LABS: Chloride 105 mmol/L (98-107); Potassium 4.5 mmoL/L (3.5-5.1); Sodium 137 mmol/L (136-145)
[2023-02-04 11:21] LABS: Blood Urea Nitrogen 12 mg/dl (9-20); Estimated Glomerular Filt Rate 92 ml/min (>60); GFR (African American) 111 ML/MIN (>60)
[2023-02-04 11:22] LABS: Anion Gap 11.5 mEq/L (5-15); Calcium 8.6 mg/dl (8.4-10.2); Carbon Dioxide 25 mmol/L (22.0-30.0); Glucose 95 mg/dl (74-100)
== END ==
PROVIDERS: PCP Family Medicine; Visit Provider Anesthesiology
DX: Z01.812 Encounter for preprocedural laboratory examination (principal)
CPT/HCPCS: 36415; 80048; 85025

== ENCOUNTER 2023-02-06 08:53 | Day surgery (SDC) | payer BC, OTHER, SELFPAY ==
[2023-02-05 09:51] VITALS: BMI 49.6
[2023-02-06 09:28] VITALS: BP 138/86; PULSE 68; RESP 17; TEMP 36.2; O2SAT 97
[2023-02-06 13:37] VITALS: BP 133/68; PULSE 82; RESP 17; TEMP 36.2; O2SAT 96
--- NOTE | 2023-02-06 13:41 | EXP.ANES.CKL ---
[facility] Disclaimer: The information contained in this section may have been updated after the patient was seen, as this information can be updated by other users. Medical History (Updated 02/06/23 @ 09:26 by Nicole Ulrich RN) Colonoscopy planned History of chest pain Implantable intrathecal infusion pump present Rheumatoid arthritis Surgical History History of cholecystectomy [place] teeth extracted Family History Family/Other Colon cancer Other Family history of diabetes mellitus type II Family history of hyperlipidemia Family history of hypertension Social History Smoking Status: Current every day smoker tobacco type: cigarettes packs per day: 1 pack-years: 15 second hand exposure: No alcohol intake: never substance use type: denies use current occupational status: employed Travel in the last 8 weeks: None household members: other housing: other lives independently: Yes marital status: education level: college service: No current occupational exposures/hazards: No caffeine: Yes special marilin needs: No agree to transfusion: No do you feel safe at home: Yes victim of physical abuse: No victim of emotional abuse: No victim of sexual abuse: No would you like helpful sources: No [facility] Anesthesia Checklist Patient Identification Patient Identification: Arm Band Structural Data Admitted From: Home Planned Operative Procedure/s: Pain Pump Explant Consent for Planned Operative Procedure(s) Verified: Yes Verified Documents: Surgical Consent and History and Physical NPO Status Verified Time NPO: 00:00 Additional verifications Anesthesia Reactions: No Hx Blood Transfusions: No Blood Transfusion Reaction: No Airway Assessment C-Spine Mobility Assessed: Yes TMJ Mobility Assessed: Yes Dentition: Good Dentition Neurological Assessment Level of Consciousness: Awake and Alert Anesthesia Plan Anesthesia Plan: Verified ASA Class: III Anesthesia Type: MAC
[2023-02-06 13:47] VITALS: BP 128/68; PULSE 80; RESP 16; O2SAT 97
[2023-02-06 13:57] VITALS: BP 129/97; PULSE 75; RESP 17; O2SAT 98
--- NOTE | 2023-02-06 14:03 | P.OP_ITS ---
Date of procedure: 02/06/23 Pre-op Diagnosis:: Nonfunctioning intrathecal pain pump for degenerative disease of lumbar spine with lumbar radiculopathy symptoms Post-op Diagnosis:: Same Procedure performed:: Removal of pain pump and catheter Surgeon:: Jose D Quinones MD NATIONAL ACCOUNT REPRESENTATIVE:: Zander Smith Anesthesia: MAC Estimated blood loss (mL): 5 Clinical Note:: This patient is a pleasant 42-year-old white male who has a intrathecal Flowonix pain pump in place. He has been having issues with his intrathecal pain pump he has had problems with his residual volumes and suspected malfunction of the pump. His pump is turned off. He is not getting any relief from his intrathecal pain pump he wants it explanted. We will also explant the catheter. Patient is currently on Percocet 10 mg 3 times a day he is doing well with oral medications at this time. Operative findings:: None Operative note:: Informed consent was obtained the risk and benefits of the procedure were explained to the patient. Patient was taken the operating room and placed prone on the procedure table. C-arm fluoroscopy was used to view the pump and catheter. I anesthetized the skin and subcutaneous tissues. I made an incision overlying the pump and dissected out the intrathecal pain pump. We cut the catheter and placed the pump on the back table. The incision was irrigated with antibiotic solution. We then made an incision over the catheter anchor site in the back. We dissected out the catheter and anchors. We removed the catheter in total from the back and from the pump pocket. Both incisions were irrigated with antibiotic solution. Both incisions were then closed with 2-0 Vicryl followed by 4-0 nylon. A wound VAC was placed over both incisions. The patient was placed in an abdominal binder and taken recovery in stable condition. Patient tolerated the procedure well with no complications. Patient was discharged home neurologic intact with good relief of pain symptoms. Plan and disposition: We will follow-up with this patient in 1 week for wound check. We did counselor manager the patient on conservative treatments for post dural puncture headache. If he does get a headache he is to call us in the pain clinic. Condition: stable Disposition: PACU Complications:: None
[2023-02-06 14:07] VITALS: BP 133/98; PULSE 71; RESP 18; TEMP 36.6; O2SAT 99
--- NOTE | 2023-02-06 14:07 | PC.NURSE ---
Reviewed DC instructions w/ patient and family, verbalized understanding. Pt sent home w/ abd binder d/t having privena wound vac in place. Verified w/ B MARTHA Stone that pt did not need a brace to be sent home w/.
== END 2023-02-06 14:07 | disposition home or self-care (01) ==
PROVIDERS: PCP Family Medicine; Visit Provider Anesthesiology
PROC: (CPT 62355; principal; 2023-02-06 10:30)
DX: Z45.1 Encounter for adjustment and management of infusion pump (principal); T85.695A Other mechanical complication of other nervous system device, implant or graft, initial encounter; F17.210 Nicotine dependence, cigarettes, uncomplicated
CPT/HCPCS: 62355; 62365; 96374; J2704; J3370

== ENCOUNTER → 2023-02-12 13:46 | Outpatient (POV) | payer BC, OTHER, SELFPAY ==
--- NOTE | 2023-02-12 14:27 | EXP.PAIN.SOA ---
[facility] Pain Management SOAP Note Subjective:: Patient is a pleasant 42-year-old male who presents today for follow-up of intrathecal pain pump and catheter removal on 01/06/2023. We are currently treating the patient for degenerative disc disease of lumbar spine with lumbar radiculopathy symptoms, nonfunctioning intrathecal pain pump. Today he rates his pain a 7 out of 10. Patient denies any new trauma or injury. Patient denies any change location or type of pain he experiences. Patient states that following the procedure he did have some difficulty with the wound VAC. He states that he was at home and he had taken Lasix and had to get up to go to the restroom when it got tangled with his foot. Patient states that the wound VAC and outer dressing did get ripped off. Patient states it was comical because then the dog took off with the dressing and tubing. Patient states he did seem to have a reaction to the adhesive on the bandage that did cause some blistering. He also states he did have a significant headache lasting 3 days. Patient denies any other issues. He is currently prescribed Percocet 10 mg 3 times a day and methocarbamol 750 mg 3 times a day. Patient denies any side effects from these medications. He is requesting a refill at today's visit. He also uses compounding cream. Patient states he is currently off work until the . His Perry is [phone]. Its been reviewed and appropriate. Review of Systems: General: No recent weight changes, no fever, no sleep disturbances Respiratory: No cough, no shortness of air, no recurring pulmonary infections Cardiovascular/peripheral vascular: No chest pain, no palpitations, no edema, no shortness of breath Gastrointestinal: No new onset incontinence, normal bowel movements reported Genitourinary: No new onset incontinence Musculoskeletal: Low back pain Psychiatric: [Normal mood/affect] Neurological: [Denies weakness in extremities], [denies balance issues] Objective:: Physical Exam: General: Alert and oriented x3, no acute distress, pleasant and cooperative Lungs: Respirations even and unlabored, symmetrical chest expansion Eyes: PERRL Musculoskeletal: Flexion and extension of lumbar [spine] somewhat guarded secondary to pain, [antalgic gait noted] Neurological: Speech clear, no gross sensory deficit Skin: Incision sites clean, dry, well approximated with no erythema noted, yoselyn and sutures intact Assessment:: Degenerative disc disease of lumbar spine with lumbar radiculopathy symptoms Plan:: Patient is doing well following his procedure. I will refill his Percocet 10 mg 3 times a day and methocarbamol 750 mg 3 times a day and provide a 1 month supply of this medication. Patient's incision sites are clean, dry, well approximated with no erythema noted. He does have his sutures and yoselyn intact. Patient will return to clinic in 2 weeks to have his yoselyn and sutures removed with skin glue and Steri-Strips applied. Patient has been advised of risks of oversedation with the prescribed medication. Narcan has been offered to the patient in the event of oversedation. Patient has been advised that a family member should also be educated regarding administration of Narcan. Patient has been instructed to contact the clinic with any concerns before the next appointment. Dr. Quinones has reviewed this note and agrees with this plan of care. This note was dictated using voice recognition software and make contain errors or omissions. [facility] Disclaimer: The information contained in this section may have been updated after the patient was seen, as this information can be updated by other users. Medical History (Updated 02/06/23 @ 09:26 by Nicole Urlich RN) Colonoscopy planned History of chest pain Implantable intrathecal infusion pump present Rheumatoid arthritis Surgical History History of cholecystectomy [place] teeth extracted Family
[2023-02-12 14:47] VITALS: BP 146/92; PULSE 98; RESP 20; BMI 47.3
== END | disposition home or self-care (01) ==
PROVIDERS: PCP Family Medicine; Visit Provider Nurse Practitioner Family
DX: M51.16 Intervertebral disc disorders with radiculopathy, lumbar region (principal)
CPT/HCPCS: 99212; G0463

== ENCOUNTER → 2023-02-27 11:05 | Outpatient (POV) | payer BC, OTHER, SELFPAY ==
--- NOTE | 2023-02-27 11:29 | EXP.PAIN.SOA ---
[facility] Pain Management SOAP Note Subjective:: Patient is a pleasant 42-year-old male who presents today for follow-up. We are currently treating the patient for degenerative disc disease of lumbar spine with lumbar radiculopathy symptoms. Today he rates his pain a 5 out of 10. Patient denies any new trauma or injury. Patient denies any change location or type of pain he experiences. Patient did have his intrathecal pump and catheter removed on 02/06/2023. Patient denies any issues following this procedure. He is currently managed with Percocet 10 mg 3 times a day and methocarbamol 750 mg 3 times a day. Patient denies any side effects from these medications. He does also use compounding cream. His Perry is [phone]. Its been a appropriate. Review of Systems: General: No recent weight changes, no fever, no sleep disturbances Respiratory: No cough, no shortness of air, no recurring pulmonary infections Cardiovascular/peripheral vascular: No chest pain, no palpitations, no edema, no shortness of breath Gastrointestinal: No new onset incontinence, normal bowel movements reported Genitourinary: No new onset incontinence Musculoskeletal: Low back pain Psychiatric: [Normal mood/affect] Neurological: [Denies weakness in extremities], [denies balance issues] Objective:: Physical Exam: General: Alert and oriented x3, no acute distress, pleasant and cooperative Lungs: Respirations even and unlabored, symmetrical chest expansion Eyes: PERRL Musculoskeletal: Flexion and extension of lumbar [spine] somewhat guarded secondary to pain, [antalgic gait noted] Neurological: Speech clear, no gross sensory deficit Assessment:: Degenerative disc disease of lumbar spine with lumbar radiculopathy symptoms Plan:: Patient is doing well on his current medication regimen. I will send in refills of his methocarbamol 750 mg 3 times a day and Percocet 10 mg 3 times a day and provide a 1 month supply of this medication. Patient did have his sutures and yoselyn removed during today's visit. His incision site is clean, dry, well approximated with no erythema noted. I have counseled the patient to continue his postop restrictions for the next month. Patient will return to clinic in 1 month for reevaluation of symptoms, medication refill and follow-up. Patient has been advised of risks of oversedation with the prescribed medication. Narcan has been offered to the patient in the event of oversedation. Patient has been advised that a family member should also be educated regarding administration of Narcan. Patient has been instructed to contact the clinic with any concerns before the next appointment. Dr. Quinones has reviewed this note and agrees with this plan of care. This note was dictated using voice recognition software and make contain errors or omissions. [facility] Disclaimer: The information contained in this section may have been updated after the patient was seen, as this information can be updated by other users. Medical History (Updated 02/06/23 @ 09:26 by Nicole Ulrich RN) Colonoscopy planned History of chest pain Implantable intrathecal infusion pump present Rheumatoid arthritis Surgical History History of cholecystectomy [place] teeth extracted Family History Family/Other Colon cancer Other Family history of diabetes mellitus type II Family history of hyperlipidemia Family history of hypertension Social History Smoking Status: Current every day smoker tobacco type: cigarettes packs per day: 1 pack-years: 15 second hand exposure: No alcohol intake: never substance use type: denies use current occupational status: employed Travel in the last 8 weeks: None household members: other housing: other lives independently: Yes marital status: education level: college [employer]
[2023-02-27 12:01] VITALS: BP 133/81; PULSE 77; RESP 20; BMI 48.1
== END | disposition home or self-care (01) ==
PROVIDERS: PCP Family Medicine; Visit Provider Nurse Practitioner Family
DX: M51.16 Intervertebral disc disorders with radiculopathy, lumbar region (principal)
CPT/HCPCS: 99212; G0463

== ENCOUNTER → 2023-03-30 15:07 | Outpatient (POV) | payer BC, OTHER, SELFPAY ==
[2023-03-30 15:21] VITALS: BP 144/90; PULSE 76; RESP 20; O2SAT 97; BMI 47.5
--- NOTE | 2023-03-30 15:31 | EXP.PAIN.SOA ---
[facility] Pain Management SOAP Note Subjective:: Patient is a pleasant 42-year-old male who presents today for medication refill and follow-up. We are currently treating the patient for degenerative disc disease of lumbar spine with lumbar radiculopathy symptoms. Today he rates his pain a 7 out of 10. Patient denies any new trauma or injury. Patient denies any change in location or type of pain he experiences. Patient is currently managed with Percocet 10 mg 3 times a day and methocarbamol 750 mg 3 times a day. Patient denies any side effects from these medications. His Perry is [id number]. Its been reviewed and appropriate. Review of Systems: General: No recent weight changes, no fever, no sleep disturbances Respiratory: No cough, no shortness of air, no recurring pulmonary infections Cardiovascular/peripheral vascular: No chest pain, no palpitations, no edema, no shortness of breath Gastrointestinal: No new onset incontinence, normal bowel movements reported Genitourinary: No new onset incontinence Musculoskeletal: Low back pain Psychiatric: [Normal mood/affect] Neurological: [Denies weakness in extremities], [denies balance issues] Objective:: Physical Exam: General: Alert and oriented x3, no acute distress, pleasant and cooperative Lungs: Respirations even and unlabored, symmetrical chest expansion Eyes: PERRL Musculoskeletal: Flexion and extension of lumbar [spine] somewhat guarded secondary to pain, [antalgic gait noted] Neurological: Speech clear, no gross sensory deficit Assessment:: Degenerative disc disease of lumbar spine with lumbar radiculopathy symptoms Plan:: I will refill the patient's Percocet 10 mg 3 times a day and methocarbamol 750 mg 3 times a day and provide a 1 month supply of this medication. Patient will return to clinic in 1 month for reevaluation of symptoms and medication refill. Patient has been advised of risks of oversedation with the prescribed medication. Narcan has been offered to the patient in the event of oversedation. Patient has been advised that a family member should also be educated regarding administration of Narcan. Patient has been instructed to contact the clinic with any concerns before the next appointment. Dr. Quinones has reviewed this note and agrees with this plan of care. This note was dictated using voice recognition software and make contain errors or omissions. [facility] Disclaimer: The information contained in this section may have been updated after the patient was seen, as this information can be updated by other users. Medical History (Updated 02/06/23 @ 09:26 by Nicole Ulrich RN) Colonoscopy planned History of chest pain Implantable intrathecal infusion pump present Rheumatoid arthritis Surgical History History of cholecystectomy [place] teeth extracted Family History Family/Other Colon cancer Other Family history of diabetes mellitus type II Family history of hyperlipidemia Family history of hypertension Social History Smoking Status: Current every day smoker tobacco type: cigarettes packs per day: 1 pack-years: 15 second hand exposure: No alcohol intake: never substance use type: denies use current occupational status: employed Travel in the last 8 weeks: None household members: other housing: other lives independently: Yes marital status: education level: college service: No current occupational exposures/hazards: No caffeine: Yes special marilin needs: No agree to transfusion: No do you feel safe at home: Yes victim of physical abuse: No victim of emotional abuse: No victim of sexual abuse: No would you like helpful sources: No
[2023-03-30 17:21] LABS: Amphetamine/Metha Screen,Urine Negative ng/ml (<1000)
[2023-03-30 17:22] LABS: Barbiturates Screen,Urine Negative ng/ml (<200); Benzodiazepines Screen,Urine Negative ng/ml (<200)
[2023-03-30 17:23] LABS: Cannabinoid Screen,Urine Negative ng/ml (<50)
[2023-03-30 17:24] LABS: Cocaine Screen,Urine Negative ng/ml (<300); Methadone Screen,Urine Negative ng/ml (<300)
[2023-03-30 17:25] LABS: Opiate Screen,Urine Positive ng/ml (<300); Phencyclidine Screen,Urine Negative ng/ml (<25)
[2023-04-05 12:08] LABS: Opiates Negative (Cutoff=100); Oxycodone (GC/MS) >3000 ng/mL (Cutoff=100); Oxymorphone (GC/MS) 1774 ng/mL (Cutoff=100)
== END | disposition home or self-care (01) ==
PROVIDERS: PCP Family Medicine; Visit Provider Nurse Practitioner Family
DX: M51.16 Intervertebral disc disorders with radiculopathy, lumbar region (principal); Z79.891 Long term (current) use of opiate analgesic
CPT/HCPCS: 80305; 80361; 80365; 99212; G0463; G0480

== ENCOUNTER → 2023-04-30 15:28 | Outpatient (POV) | payer BC, OTHER, SELFPAY ==
--- NOTE | 2023-04-30 15:50 | EXP.PAIN.SOA ---
[facility] Pain Management SOAP Note Subjective:: Patient is a pleasant 42-year-old male who presents today for medication refill and follow-up. We are currently treating the patient for degenerative disc disease of lumbar spine with lumbar radiculopathy symptoms. Today he rates his pain an 8 out of 10. Patient states that yesterday he did have an episode where he ended up falling over a gas can and causing an injury to his right arm. Patient did go to the [place] ER and was evaluated with imaging and they told him that it was possible he could have a hairline fracture however it was not seen. Patient does state that he is currently having more issues with swelling today in that extremity and does present with a sling on. He does state that the ER physician did order a stronger Tylenol medication and he states that he did not proceed forward with this because he had fears that it may interact with his medications prescribed here. He is currently managed with Percocet 10 mg 3 times a day and methocarbamol 750 mg 3 times a day. Patient denies any side effects from this medication. He is also prescribed compounding cream. He does state that he still has prednisone tablets at home from a previous prescription. His Perry is [id number]. Its been reviewed and appropriate. Review of Systems: General: No recent weight changes, no fever, no sleep disturbances Respiratory: No cough, no shortness of air, no recurring pulmonary infections Cardiovascular/peripheral vascular: No chest pain, no palpitations, no edema, no shortness of breath Gastrointestinal: No new onset incontinence, normal bowel movements reported Genitourinary: No new onset incontinence Musculoskeletal: Low back pain, right arm pain Psychiatric: [Normal mood/affect] Neurological: [Denies weakness in extremities], [denies balance issues] Objective:: Physical Exam: General: Alert and oriented x3, no acute distress, pleasant and cooperative Lungs: Respirations even and unlabored, symmetrical chest expansion Eyes: PERRL Musculoskeletal: Flexion and extension of lumbar [spine] somewhat guarded secondary to pain, [antalgic gait noted] Neurological: Speech clear, no gross sensory deficit Assessment:: Degenerative disc disease of lumbar spine with lumbar radiculopathy symptoms, right arm pain Plan:: I will refill the patient's Percocet 10 mg 3 times a day and methocarbamol 750 mg 3 times a day and provide a 1 month supply of this medication. I have counseled the patient that he can take the prednisone 20 mg twice daily for 5 days and see if this does provide additional improvement of his right arm swelling and pain. Patient will return to clinic in 1 month for reevaluation of symptoms and medication refill. Patient has been advised of risks of oversedation with the prescribed medication. Narcan has been offered to the patient in the event of oversedation. Patient has been advised that a family member should also be educated regarding administration of Narcan. Patient has been instructed to contact the clinic with any concerns before the next appointment. Dr. Quinones has reviewed this note and agrees with this plan of care. This note was dictated using voice recognition software and make contain errors or omissions. [facility] Disclaimer: The information contained in this section may have been updated after the patient was seen, as this information can be updated by other users. Medical History (Updated 02/06/23 @ 09:26 by Nicole Ulrich RN) Colonoscopy planned History of chest pain Implantable intrathecal infusion pump present Rheumatoid arthritis Surgical History History of cholecystectomy [place] teeth extracted Family History Family/Other Colon cancer Other Family history of diabetes mellitus type II Family history of hyperlipidemia Family history of hypertension Social History (Revi
[2023-04-30 16:11] VITALS: BP 146/93; PULSE 79; RESP 18; O2SAT 97; BMI 47.2
== END | disposition home or self-care (01) ==
PROVIDERS: PCP Family Medicine; Visit Provider Nurse Practitioner Family
DX: M51.16 Intervertebral disc disorders with radiculopathy, lumbar region (principal); M79.601 Pain in right arm
CPT/HCPCS: 99212; G0463

== ENCOUNTER → 2023-05-28 15:40 | Outpatient (POV) | payer BC, OTHER, SELFPAY ==
--- NOTE | 2023-05-28 15:42 | EXP.PAIN.SOA ---
[facility] Pain Management SOAP Note Subjective:: Patient is a pleasant 42-year-old male who presents today for medication refill and follow-up. We are currently treating the patient for degenerative disc disease of lumbar spine with lumbar radiculopathy symptoms. Today he rates his pain an 8 out of 10. Patient denies any new trauma or injury or any change to location or type of pain he experiences. Patient did previously have a fall at our last visit that resulted in a hairline fracture of his arm and he was in a sling. Today he states he is doing better and out of the sling however he states he is having overall increased stiffness and pain in his lower back. Patient states he recently went to the dentist to wear the optical assistant ended up pulling out a feeling while she was cleaning his teeth. Patient states that he ended up having to wait 2 months before he could get back in and ended up having to have the tooth pulled. Patient does state that this was Thursday and that it took an hour and a half to have it removed. Patient has been prescribed Percocet 10 mg 3 times a day and methocarbamol 750 mg 3 times a day. Recently there has been a shortage of Percocet 10 mg available for pharmacies and his last prescription was sent and for Percocet 7.5 mg instead. Patient denies any side effects from this medication. He does state that he feels like the Percocet 7.5's do not work as well he is asking whether or not if he can take 2 of these at a time. He is also prescribed compounding cream. His Perry is [id number]. Its been reviewed and appropriate. Review of Systems: General: No recent weight changes, no fever, no sleep disturbances Respiratory: No cough, no shortness of air, no recurring pulmonary infections Cardiovascular/peripheral vascular: No chest pain, no palpitations, no edema, no shortness of breath Gastrointestinal: No new onset incontinence, normal bowel movements reported Genitourinary: No new onset incontinence Musculoskeletal: Low back pain, right arm pain Psychiatric: [Normal mood/affect] Neurological: [Denies weakness in extremities], [denies balance issues] Objective:: Physical Exam: General: Alert and oriented x3, no acute distress, pleasant and cooperative Lungs: Respirations even and unlabored, symmetrical chest expansion Eyes: PERRL Musculoskeletal: Flexion and extension of lumbar [spine] somewhat guarded secondary to pain, [antalgic gait noted] Neurological: Speech clear, no gross sensory deficit Assessment:: Degenerative disc disease of lumbar spine with lumbar radiculopathy symptoms Plan:: Due to her current shortage of Percocet 10 mg we will send in a prescription of Percocet 7.5 mg 4 times a day and provide a 1 month supply of this as well as his methocarbamol 750 mg 3 times a day. I will also send in a 7-day supply of prednisone 20 mg twice daily. I have counseled the patient that he can take 2 tablets together but recommend that he take these at bedtime to minimize additional side effects. We will follow-up with him at his next visit and I have also recommended that he talk to his pharmacist when he picks up his prescriptions to see if the Percocet tens are still on backorder. Patient will return to clinic in 1 month for reevaluation of symptoms, medication refill and follow-up. Patient has been advised of risks of oversedation with the prescribed medication. Narcan has been offered to the patient in the event of oversedation. Patient has been advised that a family member should also be educated regarding administration of Narcan. Patient has been instructed to contact the clinic with any concerns before the next appointment. Dr. Quinones has reviewed this note and agrees with this plan of care. This note was dictated using voice recognition software and make contain errors or omissions. [facility] Disclaimer: The information contained in this section may have been updated after the patient was seen, as this information can be up
[2023-05-28 15:48] VITALS: BP 144/90; PULSE 78; RESP 20; O2SAT 96; BMI 47.2
== END | disposition home or self-care (01) ==
PROVIDERS: Visit Provider Nurse Practitioner Family
DX: M51.16 Intervertebral disc disorders with radiculopathy, lumbar region (principal)
CPT/HCPCS: 99212; G0463

== ENCOUNTER → 2023-07-15 15:30 | Outpatient (POV) | payer BC, OTHER, SELFPAY ==
[2023-07-15 15:48] VITALS: BP 165/95; PULSE 82; RESP 18; O2SAT 93; BMI 46.8
--- NOTE | 2023-07-15 15:58 | EXP.PAIN.SOA ---
[facility] Pain Management SOAP Note Subjective:: Patient is a pleasant 42-year-old male who presents today for medication refill and follow-up. We are currently treating the patient for degenerative disc disease of lumbar spine with lumbar radiculopathy symptoms. Today he rates his pain an 8 out of 10. Patient denies any new trauma or injury. Patient states that he continues to have significant pain in his low back that radiates into his bilateral lower extremities. Patient does describe this as a constant aching, throbbing sensation that is worse with increased activity. Patient has had previous lumbar epidurals however he stated he did not get significant relief with this. He is currently managed with Percocet 10 mg 3 times a day and methocarbamol 750 mg 3 times a day. Patient states that he only takes the methocarbamol at bedtime because it does cause significant drowsiness. Patient states that he did just recently accidentally washed his pain pills. Patient does state that he understands if he cannot get any additional refills until his next scheduled date. 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 Patient states that he just cannot continue to work due to his constant back pain. He states he had been doing some more desk duties but that is actually causing worse stiffening in his back and trouble getting up when he does. Patient does have a nonfunctioning flowonix intrathecal pain pump in place that he had talked about having removed when he was able to build up enough PTO. his Perry is [id number]. Patient denies any heart or kidney issues. Its been reviewed and appropriate. Review of Systems: General: No recent weight changes, no fever, no sleep disturbances Respiratory: No cough, no shortness of air, no recurring pulmonary infections Cardiovascular/peripheral vascular: No chest pain, no palpitations, no edema, no shortness of breath Gastrointestinal: No new onset incontinence, normal bowel movements reported Genitourinary: No new onset incontinence Musculoskeletal: Low back pain, leg pain Psychiatric: [Normal mood/affect] Neurological: [Denies weakness in extremities], [denies balance issues] Objective:: Physical Exam: General: Alert and oriented x3, no acute distress, pleasant and cooperative Lungs: Respirations even and unlabored, symmetrical chest expansion Eyes: PERRL Musculoskeletal: Flexion and extension of lumbar [spine] somewhat guarded secondary to pain, [antalgic gait noted] Neurological: Speech clear, no gross sensory deficit Assessment:: Degenerative disc disease of lumbar spine with lumbar radiculopathy symptoms, chronic pain Plan:: Patient continues to experience significant pain in his low back and legs. Patient did have limited range of motion of his lumbar spine during today's visit. I have counseled the patient that we can always try to repeat a lumbar epidural however he would like to wait at this time. Patient denied any heart or kidney issues. I will send in a prescription of diclofenac 75 mg twice daily and provide a 14-day supply of this medication. I have counseled the patient to discontinue all other NSAIDs while taking this medication and to take it with food to minimize GI upset. I will also send in a lower dose of the methocarbamol to 500 mg that he can try and take during the day. Patient's regularly scheduled Percocet 10 mg 3 times a day will be sent in with a 1 month supply however this will not be able to be picked up early and will follow his regularly scheduled prescription timeframe on July 25. Patient will return to clinic in 1 month for reevaluation of symptoms and plan of care. I have also discussed with the patient that he may benefit from replacing his flowonix intrathecal pump to a Medtronic due to the flowonix being nonfunctioning. Patient does state that he still questions if this is the route he would like to go due to the device malfunctioning in the beginning
== END | disposition home or self-care (01) ==
PROVIDERS: PCP Family Medicine; Visit Provider Nurse Practitioner Family
DX: M51.16 Intervertebral disc disorders with radiculopathy, lumbar region (principal); G89.29 Other chronic pain; Z97.8 Presence of other specified devices
CPT/HCPCS: 99212; G0463

== ENCOUNTER → 2023-08-13 10:20 | Outpatient (POV) | payer OTHER, SELFPAY ==
--- NOTE | 2023-08-13 10:29 | EXP.PAIN.SOA ---
[facility] Pain Management SOAP Note Subjective:: Patient is a pleasant 42-year-old male who presents today for medication refill. We are currently treating the patient for degenerative disc disease of lumbar spine with lumbar radiculopathy symptoms. Today he rates his pain an 8 out of 10. Patient denies any new injury or trauma since our last visit. Patient is currently managed with Percocet 10 mg 3 times a day and methocarbamol 500 mg 3 times a day. At our last visit we did decrease the patient's muscle relaxer due to it causing more drowsiness at the 750 dosage. He does state the change did make a significant difference and that he was able to tolerate the smaller dosage. We also ordered diclofenac 75 mg twice a day with a 14-day supply however he stated he did not notice any additional improvement on this medication. Patient denies any side effects from this medication. His Perry is [id number]. Its been reviewed and appropriate. Review of Systems: General: No recent weight changes, no fever, no sleep disturbances Respiratory: No cough, no shortness of air, no recurring pulmonary infections Cardiovascular/peripheral vascular: No chest pain, no palpitations, no edema, no shortness of breath Gastrointestinal: No new onset incontinence, normal bowel movements reported Genitourinary: No new onset incontinence Musculoskeletal: Low back pain Psychiatric: [Normal mood/affect] Neurological: [Denies weakness in extremities], [denies balance issues] Objective:: Physical Exam: General: Alert and oriented x3, no acute distress, pleasant and cooperative Lungs: Respirations even and unlabored, symmetrical chest expansion Eyes: PERRL Musculoskeletal: Flexion and extension of lumbar [spine] somewhat guarded secondary to pain, [antalgic gait noted] Neurological: Speech clear, no gross sensory deficit Assessment:: Degenerative disc disease of lumbar spine with lumbar radiculopathy symptoms Plan:: We will refill the patient's Percocet 10 mg 3 times a day and methocarbamol 500 mg 3 times a day and provide a 1 month supply of this medication. Patient will return to clinic in 1 month for reevaluation of symptoms and medication refill. Patient has been advised of risks of oversedation with the prescribed medication. Narcan has been offered to the patient in the event of oversedation. Patient has been advised that a family member should also be educated regarding administration of Narcan. Patient has been instructed to contact the clinic with any concerns before the next appointment. Dr. Quinones has reviewed this note and agrees with this plan of care. This note was dictated using voice recognition software and make contain errors or omissions. [facility] Disclaimer: The information contained in this section may have been updated after the patient was seen, as this information can be updated by other users. Medical History (Updated 02/06/23 @ 09:26 by Nicole Ulrich RN) Colonoscopy planned History of chest pain Implantable intrathecal infusion pump present Rheumatoid arthritis Surgical History History of cholecystectomy [place] teeth extracted Family History Family/Other Colon cancer Other Family history of diabetes mellitus type II Family history of hyperlipidemia Family history of hypertension Social History Smoking Status: Current every day smoker tobacco type: cigarettes packs per day: 1 second hand exposure: No alcohol intake: never substance use type: denies use current occupational status: employed Travel in the last 8 weeks: None household members: other housing: house lives independently: Yes marital status: education level: college service: No current occupational exposures/hazards: No caffeine: Yes special marilin needs: No agree to transfusion:
[2023-08-13 10:41] VITALS: BP 176/99; PULSE 75; RESP 18; O2SAT 97; BMI 46.0
== END | disposition home or self-care (01) ==
PROVIDERS: PCP Family Medicine; Visit Provider Nurse Practitioner Family
DX: M51.16 Intervertebral disc disorders with radiculopathy, lumbar region (principal)
CPT/HCPCS: 99212; G0463

== ENCOUNTER → 2023-09-21 15:10 | Outpatient (POV) | payer OTHER, SELFPAY ==
--- NOTE | 2023-09-21 15:25 | EXP.PAIN.SOA ---
[facility] Pain Management SOAP Note Subjective:: Patient is a pleasant 42-year-old male who presents today for medication refill. We are currently treating the patient for degenerative disc disease of lumbar spine with lumbar radiculopathy symptoms. Today he rates his pain an out of 10. Patient denies any new injury or trauma since our last visit. Patient is currently managed with Percocet 10 mg 3 times a day and methocarbamol 500 mg 3 times a day. Patient denies any side effects from this medication. He does state that this medication helps manage his pain. Patient does also use an Aleve roll-on medication for his heels, ankles and shoulders that does help. 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 His Perry has been reviewed and appropriate. Review of Systems: General: No recent weight changes, no fever, no sleep disturbances Respiratory: No cough, no shortness of air, no recurring pulmonary infections Cardiovascular/peripheral vascular: No chest pain, no palpitations, no edema, no shortness of breath Gastrointestinal: No new onset incontinence, normal bowel movements reported Genitourinary: No new onset incontinence Musculoskeletal: Low back pain Psychiatric: [Normal mood/affect] Neurological: [Denies weakness in extremities], [denies balance issues] Objective:: Physical Exam: General: Alert and oriented x3, no acute distress, pleasant and cooperative Lungs: Respirations even and unlabored, symmetrical chest expansion Eyes: PERRL Musculoskeletal: Flexion and extension of lumbar [spine] somewhat guarded secondary to pain, [antalgic gait noted] Neurological: Speech clear, no gross sensory deficit Assessment:: Degenerative disc disease of lumbar spine with lumbar radiculopathy symptoms Plan:: I will refill the patient's Percocet 10 mg 3 times a day and methocarbamol 500 mg 3 times a day and provide a 1 month supply of this medication. Patient will return to clinic in 1 month for reevaluation of symptoms and plan of care. Patient has been advised of risks of oversedation with the prescribed medication. Narcan has been offered to the patient in the event of oversedation. Patient has been advised that a family member should also be educated regarding administration of Narcan. Patient has been instructed to contact the clinic with any concerns before the next appointment. Dr. Quinones has reviewed this note and agrees with this plan of care. This note was dictated using voice recognition software and make contain errors or omissions. [facility] Disclaimer: The information contained in this section may have been updated after the patient was seen, as this information can be updated by other users. Medical History (Updated 02/06/23 @ 09:26 by Nicole Ulrich RN) Colonoscopy planned History of chest pain Implantable intrathecal infusion pump present Rheumatoid arthritis Surgical History History of cholecystectomy [place] teeth extracted Family History Family/Other Colon cancer Other Family history of diabetes mellitus type II Family history of hyperlipidemia Family history of hypertension Social History Smoking Status: Current every day smoker tobacco type: cigarettes packs per day: 1 second hand exposure: No alcohol intake: never substance use type: denies use current occupational status: employed Travel in the last 8 weeks: None household members: other housing: house lives independently: Yes marital status: education level: college service: No current occupational exposures/hazards: No caffeine: Yes special marilin needs: No agree to transfusion: No do you feel safe at home: Yes victim of physical abuse: No victim of emotional abuse: No victim of sexual abuse: No would you like helpful sources:
[2023-09-21 15:50] VITALS: BP 131/94; PULSE 74; RESP 18; O2SAT 94; BMI 46.1
== END | disposition home or self-care (01) ==
PROVIDERS: PCP Family Medicine; Visit Provider Nurse Practitioner Family
DX: M51.16 Intervertebral disc disorders with radiculopathy, lumbar region (principal)
CPT/HCPCS: 99212; G0463

== ENCOUNTER → 2023-10-15 14:56 | Outpatient (POV) | payer OTHER, SELFPAY ==
--- NOTE | 2023-10-15 15:12 | EXP.PAIN.SOA ---
[facility] Pain Management SOAP Note Subjective:: Patient is a pleasant 42-year-old male who presents today for medication refill. We are currently treating the patient for degenerative disc disease of lumbar spine with lumbar radiculopathy symptoms. Today he rates his pain a 7 out of 10. Patient denies any new injury or trauma. He does state that he has been experiencing more burning and stinging in his bilateral feet. 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 Patient states that Dr. Bronson did try him on medication such as gabapentin and possibly amitriptyline however he did not notice significant relief. He is currently managed with Percocet 10 mg 3 times a day and methocarbamol 500 mg 3 times a day. Patient denies any side effects from this medication. His Perry has been reviewed and appropriate. Review of Systems: General: No recent weight changes, no fever, no sleep disturbances Respiratory: No cough, no shortness of air, no recurring pulmonary infections Cardiovascular/peripheral vascular: No chest pain, no palpitations, no edema, no shortness of breath Gastrointestinal: No new onset incontinence, normal bowel movements reported Genitourinary: No new onset incontinence Musculoskeletal: Low back pain Psychiatric: [Normal mood/affect] Neurological: [Denies weakness in extremities], [denies balance issues] Objective:: Physical Exam: General: Alert and oriented x3, no acute distress, pleasant and cooperative Lungs: Respirations even and unlabored, symmetrical chest expansion Eyes: PERRL Musculoskeletal: Flexion and extension of lumbar [spine] somewhat guarded secondary to pain, [antalgic gait noted] Neurological: Speech clear, no gross sensory deficit Assessment:: Degenerative disc disease of lumbar spine with lumbar radiculopathy symptoms Plan:: I will refill the patient's methocarbamol 500 mg 3 times a day and Percocet 10 mg 3 times a day and provide a 1 month supply of these medications. 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 I have counseled the patient to contact our office closer to the 2-week timeframe and let us know if they did provide any improvement. Patient will return to the clinic in 1 month for reevaluation of symptoms and plan of care. Patient has been advised of risks of oversedation with the prescribed medication. Narcan has been offered to the patient in the event of oversedation. Patient has been advised that a family member should also be educated regarding administration of Narcan. Patient has been instructed to contact the clinic with any concerns before the next appointment. Dr. Quinones has reviewed this note and agrees with this plan of care. This note was dictated using voice recognition software and make contain errors or omissions. [facility] Disclaimer: The information contained in this section may have been updated after the patient was seen, as this information can be updated by other users. Medical History (Updated 02/06/23 @ 09:26 by Nicole Ulrich RN) Colonoscopy planned History of chest pain Implantable intrathecal infusion pump present Rheumatoid arthritis Surgical History History of cholecystectomy [place] teeth extracted Family History Family/Other Colon cancer Other Family history of diabetes mellitus type II Family history of hyperlipidemia Family history of hypertension Social History Smoking Status: Current every day smoker tobacco type: cigarettes packs per day: 1 second hand exposure: No alcohol intake: never substance use type: denies use current occupatio
[2023-10-15 15:19] VITALS: BP 144/93; PULSE 76; RESP 18; O2SAT 94; BMI 46.5
== END | disposition home or self-care (01) ==
PROVIDERS: PCP Family Medicine; Visit Provider Nurse Practitioner Family
DX: M51.16 Intervertebral disc disorders with radiculopathy, lumbar region (principal)
CPT/HCPCS: 99212; G0463

== ENCOUNTER → 2023-11-12 12:52 | Outpatient (POV) | payer BC, SELFPAY ==
--- NOTE | 2023-11-12 12:58 | A.OFFVIS_ITS ---
[facility] Pain Management SOAP Note Subjective:: Patient is a pleasant 42-year-old male who presents today for medication refill. We are currently treating the patient for degenerative disc disease of lumbar spine with lumbar radiculopathy symptoms. Today he rates his pain a 7 out of 10. Patient denies any new injury or trauma. He does state however that he ended up with COVID last week and is just now getting over it. Patient states that it really did do a number on him and then he ran a high fever for several days and had a lot of respiratory issues. He states he is just starting to feel a little bit better. He is currently managed with Percocet 10 mg 3 times a day and methocarbamol 500 mg 3 times a day. Patient denies any side effects from this medication. At her last visit we did prescribe him pregabalin 50 mg 3 times a day. Today he states that it did seem to help however did not last for very long. His Perry has been reviewed and appropriate. Review of Systems: General: No recent weight changes, no fever, no sleep disturbances Respiratory: No cough, no shortness of air, no recurring pulmonary infections Cardiovascular/peripheral vascular: No chest pain, no palpitations, no edema, no shortness of breath Gastrointestinal: No new onset incontinence, normal bowel movements reported Genitourinary: No new onset incontinence Musculoskeletal: Low back pain Psychiatric: [Normal mood/affect] Neurological: [Denies weakness in extremities], [denies balance issues] Objective:: ArePhysical Exam: General: Alert and oriented x3, no acute distress, pleasant and cooperative Lungs: Respirations even and unlabored, symmetrical chest expansion Eyes: PERRL Musculoskeletal: Flexion and extension of lumbar [spine] somewhat guarded secondary to pain, [antalgic gait noted] Neurological: Speech clear, no gross sensory deficit Assessment:: Degenerative disc disease of the lumbar spine with lumbar radiculopathy symptoms Plan:: I will refill the patient's Percocet 10 mg 3 times a day, methocarbamol 500 mg 3 times a day and send in an increase of pregabalin 100 mg 3 times a day and provide a 1 month supply of these medications. Patient will return to clinic in 1 month for reevaluation of symptoms and plan of care. Patient has been advised of risks of oversedation with the prescribed medication. Narcan has been offered to the patient in the event of oversedation . Patient has been advised that a family member should also be educated regarding administration of Narcan. Patient has been instructed to contact the clinic with any concerns before the next appointment. Dr. Quinones has reviewed this note and agrees with this plan of care. This note was dictated using voice recognition software and make contain errors or omissions. [facility] Disclaimer: The information contained in this section may have been updated after the patient was seen, as this information can be updated by other users. Medical History (Updated 02/06/23 @ 09:26 by Nicole Ulrich RN) Colonoscopy planned History of chest pain Implantable intrathecal infusion pump present Rheumatoid arthritis Surgical History History of cholecystectomy [employer] teeth extracted Family History Family/Other Colon cancer Other Family history of diabetes mellitus type II Family history of hyperlipidemia Family history of hypertension Social History Smoking Status: Current every day smoker tobacco type: cigarettes packs per day: 1 second hand exposure: No alcohol intake: never substance use type: denies use current occupational status: employed Travel in the last 8 weeks: None household members: other housing: house lives independently: Yes marital status: education level: college service: No current occupational exposures/hazards: No caffeine: Yes special marilin needs: No agree to transfusion: No do you feel safe at home: Yes victim of physical abuse: No victim of emotional abuse: No victim of sexual abuse: No would you like helpful sources: No
[2023-11-12 15:19] VITALS: BP 172/91; PULSE 97; RESP 20; O2SAT 94; BMI 46.3
== END | disposition home or self-care (01) ==
PROVIDERS: PCP Family Medicine; Visit Provider Nurse Practitioner Family
DX: M51.16 Intervertebral disc disorders with radiculopathy, lumbar region (principal)
CPT/HCPCS: 99212; G0463

== ENCOUNTER → 2023-12-21 10:00 | Outpatient (POV) | payer BC, SELFPAY ==
[2023-12-21 10:24] VITALS: BP 117/82; PULSE 75; RESP 18; O2SAT 94; BMI 44.4
--- NOTE | 2023-12-21 10:34 | A.OFFVIS_ITS ---
[facility] Pain Management SOAP Note Subjective:: Patient is a pleasant 43-year-old male who presents today for medication refill and follow-up. We are currently treating the patient for degenerative disc disease of lumbar spine with lumbar radiculopathy symptoms. Today he rates his pain an 8 out of 10. Patient denies any new trauma or injury. 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 Patient is currently managed with Percocet 10 mg 3 times a day, pregabalin 100 mg 3 times a day and methocarbamol 500 mg 3 times a day. He denies any side effects from this medication. His Perry has been reviewed and is appropriate. Review of Systems: General: No recent weight changes, no fever, no sleep disturbances Respiratory: No cough, no shortness of air, no recurring pulmonary infections Cardiovascular/peripheral vascular: No chest pain, no palpitations, no edema, no shortness of breath Gastrointestinal: No new onset incontinence, normal bowel movements reported Genitourinary: No new onset incontinence Musculoskeletal: Low back pain Psychiatric: [Normal mood/affect] Neurological: [Denies weakness in extremities], [denies balance issues] Objective:: Physical Exam: General: Alert and oriented x3, no acute distress, pleasant and cooperative Lungs: Respirations even and unlabored, symmetrical chest expansion Eyes: PERRL Musculoskeletal: Flexion and extension of lumbar [spine] somewhat guarded secon scott to pain, [antalgic gait noted] Neurological: Speech clear, no gross sensory deficit Assessment:: Degenerative disc disease of lumbar spine with lumbar radiculopathy symptoms Plan:: I will refill the patient's Percocet 10 mg 3 times a day, pregabalin 100 mg 3 times a day and methocarbamol 500 mg 3 times a day and provide a 1 month supply of this medication. Patient will return to clinic in 1 month for reevaluation of symptoms and plan of care. Risks and benefits of the medication have been explained in detail to the patient. The patient does understand the risk of dependence on the medication when given over a prolonged period. Patient has been advised of risks of oversedation with the prescribed medication. Narcan has been offered to the paitent in the event of oversedation. Patient has been advised that a family member should also be educated regarding administration of Narcan. The patient has been advised to consult with his/her primary care provider and pharmacist regarding drug-drug interaction of medications currently prescribed. Patient has been prescribed a controlled substance after being counseled on the medication, medication safety, and possible side effects. Opioid contract was reviewed and signed by the patient, and that they have agreed to all of the terms set forth by our compliance program. Patient has been instructed to contact the clinic with any concerns before the next appointment. Dr. Quinones has reviewed this note and agrees with this plan of care. This note was dictated using voice recognition software and make contain errors or omissions. [facility] Disclaimer: The information contained in this section may have been updated after the patient was seen, as this information can be updated by other users. Medical History (Updated 02/06/23 @ 09:26 by Nicole Ulrich RN) Colonoscopy planned History of chest pain Implantable intrathecal infusion pump present Rheumatoid arthritis Surgical History History of cholecystectomy [place] teeth extracted Family History Family/Other Colon cancer Other Family history of diabetes mellitus type II Family history of hyperlipidemia Family history of hypertension Social History Smoking Status: Current every day smoker tobacco type: cigarettes packs per day: 1 second hand exposure: No alcohol intake: never substance use type: denies use current occupational status: employed Travel in the last 8 weeks: None household members: other housing: house lives independently: Yes marital status: education level: college service: No current occupational exposures/hazards: No caffeine: Yes special marilin needs: No agree to transfusion: No do you feel safe at home: Yes victim of physical abuse: No victim of emotional abuse: No victim of sexual abuse: No would you like helpful sources: No
[2023-12-21 11:42] LABS: Barbiturates Screen,Urine Negative ng/ml (<200)
[2023-12-21 11:43] LABS: Benzodiazepines Screen,Urine Negative ng/ml (<200); Cannabinoid Screen,Urine Negative ng/ml (<50)
[2023-12-21 11:45] LABS: Opiate Screen,Urine Negative ng/ml (<300)
[2023-12-21 11:46] LABS: Phencyclidine Screen,Urine Negative ng/ml (<25)
[2023-12-21 11:48] LABS: Amphetamine/Metha Screen,Urine Negative ng/ml (<1000)
[2023-12-21 11:49] LABS: Cocaine Screen,Urine Negative ng/ml (<300)
[2023-12-21 11:50] LABS: Methadone Screen,Urine Negative ng/ml (<300)
[2023-12-24 18:49] LABS: Opiates Negative (Cutoff=100); Oxycodone (GC/MS) 2834 ng/mL (Cutoff=100); Oxymorphone (GC/MS) >3000 ng/mL (Cutoff=100)
== END | disposition home or self-care (01) ==
PROVIDERS: PCP Family Medicine; Visit Provider Nurse Practitioner Family
DX: M51.16 Intervertebral disc disorders with radiculopathy, lumbar region (principal)
CPT/HCPCS: 80307; 80361; 80365; 99212; G0463; G0480

== ENCOUNTER 2023-12-21 10:30 | Outpatient (CLI) | payer BC, SELFPAY | END 2023-12-21 23:59 | LOC: LAB 10:32 | PROVIDERS: PCP Family Medicine; Visit Provider Anesthesiology | DX: Z79.891 Long term (current) use of opiate analgesic (principal) ==

== ENCOUNTER 2024-01-20 08:16 | Outpatient (POV) | payer BC, SELFPAY ==
[2024-01-20 08:35] VITALS: BP 132/89; PULSE 77; RESP 18; O2SAT 95; BMI 42.8
--- NOTE | 2024-01-20 09:05 | EXP.PAIN.SOA ---
[facility] Pain Management SOAP Note Subjective:: Patient is a pleasant 43-year-old male who presents today for medication refill and follow-up. He rates his pain today an 8 out of 10. He denies any new trauma or injury from our last visit. Patient states he is doing well on his Percocet 10 mg 3 times a day, pregabalin 100 mg 3 times a day and methocarbamol 500 mg 3 times a day. He denies any side effects from this medication. Patient did recently have a pill count that was in excess. Patient states that he was unsure of what the pain medication was because they change colors on him and so there were several days that he did not take the right 1. Patient does also state he has been dealing with a lot of over time and that today is his 27-day working over. Patients Perry has been reviewed and is appropriate. Review of Systems: General: No recent weight changes, no fever, no sleep disturbances Respiratory: No cough, no shortness of air, no recurring pulmonary infections Cardiovascular/peripheral vascular: No chest pain, no palpitations, no edema, no shortness of breath Gastrointestinal: No new onset incontinence, normal bowel movements reported Genitourinary: No new onset incontinence Musculoskeletal: Low back pain Psychiatric: [Normal mood/affect] Neurological: [Denies weakness in extremities], [denies balance issues] Objective:: Physical Exam: General: Alert and oriented x3, no acute distress, pleasant and cooperative Lungs: Respirations even and unlabored, symmetrical chest expansion Eyes: PERRL Musculoskeletal: Flexion and extension of lumbar [spine] somewhat guarded secondary to pain, [antalgic gait noted] Neurological: Speech clear, no gross sensory deficit Assessment:: Degenerative disc disease of lumbar spine with lumbar radiculopathy symptoms Plan:: I will refill the patient's Percocet 10 mg 3 times a day, pregabalin 100 mg 3 times a day and methocarbamol 500 mg 3 times a day and provide 1 month supply of this medication. Patient will return to clinic in 1 month for reevaluation of symptoms and plan of care. Risks and benefits of the medication have been explained in detail to the patient. The patient does understand the risk of dependence on the medication when given over a prolonged period. Patient has been advised of risks of oversedation with the prescribed medication. Narcan has been offered to the paitent in the event of oversedation. Patient has been advised that a family member should also be educated regarding administration of Narcan. The patient has been advised to consult with his/her primary care provider and pharmacist regarding drug-drug interaction of medications currently prescribed. Patient has been prescribed a controlled substance after being counseled on the medication, medication safety, and possible side effects. Opioid contract was reviewed and signed by the patient, and that they have agreed to all of the terms set forth by our compliance program. Patient has been instructed to contact the clinic with any concerns before the next appointment. Dr. Quinones has reviewed this note and agrees with this plan of care. This note was dictated using voice recognition software and make contain errors or omissions. [facility] Disclaimer: The information contained in this section may have been updated after the patient was seen, as this information can be updated by other users. Medical History Colonoscopy planned Implantable intrathecal infusion pump present Rheumatoid arthritis History of chest pain Surgical History [place] teeth extracted History of cholecystectomy Family History Family/Other Colon cancer Other Family history of diabetes mellitus type II Family history of hyperlipidemia Family history of hypertension Social History Smoking Status: Current every day smoker tobacco type: cigarettes packs per day: 1 second hand exposure: No alcohol intake: never substance use type: denies use current occupational status: employed Travel in the last 8 weeks: None household members: other housing: house lives independently: Yes marital status: education level: college service: No current occupational exposures/hazards: No caffeine: Yes special marilin needs: No agree to transfusion: No do you feel safe at home: Yes victim of physical abuse: No victim of emotional abuse: No victim of sexual abuse: No would you like helpful sources: No
== END 2024-01-20 23:59 | disposition home or self-care (01) ==
PROVIDERS: PCP Family Medicine; Visit Provider Nurse Practitioner Family
DX: M51.16 Intervertebral disc disorders with radiculopathy, lumbar region (principal)
CPT/HCPCS: 99212; G0463

== ENCOUNTER 2024-02-18 08:16 | Outpatient (POV) | payer BC, SELFPAY ==
[2024-02-18 08:25] VITALS: BP 124/77; PULSE 73; RESP 18; O2SAT 95; BMI 43.2
--- NOTE | 2024-02-18 08:39 | A.OFFVIS_ITS ---
[facility] Pain Management SOAP Note Subjective:: Patient is a pleasant 43-year-old male who presents today for medication refill and follow-up. Today he rates his pain an 8 out of 10. Patient does state from his last visit he was moving a refrigerator and ended up having an injury to his bilateral knees and left shoulder. He does state this was about 3 weeks ago however he is continue to have continuing pain. He describes it as a constant aching sensation that is worse with increased activity. He does state that his right knee and left shoulder are the worst of the pains. He states he even has some swelling along the outer side of his right knee. Patient is currently managed with Percocet 10 mg 3 times a day, pregabalin 100 mg 3 times a day and methocarbamol 500 mg 3 times a day. He denies any side effects from this medication. He has been tried on compounded cream in the past however he states he did [place] number and has not gotten any refills. His Perry has been reviewed and is appropriate. Review of Systems: General: No recent weight changes, no fever, no sleep disturbances Respiratory: No cough, no shortness of air, no recurring pulmonary infections Cardiovascular/peripheral vascular: No chest pain, no palpitations, no edema, no shortness of breath Gastrointestinal: No new onset incontinence, normal bowel movements reported Genitourinary: No new onset incontinence Musculoskeletal: Right knee pain, left shoulder pain, low back pain Psychiatric: [Normal mood/affect] Neurological: [Denies weakness in extremities], [denies balance issues] Objective:: Physical Exam: General: Alert and oriented x3, no acute distress, pleasant and cooperative Lungs: Respirations even and unlabored, symmetrical chest expansion Eyes: PERRL Musculoskeletal: Flexion and extension of lumbar [spine] somewhat guarded secondary to pain, [antalgic gait noted] Neurological: Speech clear, no gross sensory deficit Assessment:: Degenerative disc disease of lumbar spine with lumbar radiculopathy symptoms, bilateral knee pain, left shoulder pain Plan:: I have discussed with patient due to his new pains in his bilateral knees and left shoulder that it may be beneficial to order some updated imaging since it has been 3 weeks and he is continuing to have pain. I have also discussed with the patient in future he may benefit from intra-articular injection. We will follow-up with this at future visits. I have recommended that we send in a new order of the compounded cream and he can try this on his knees and his left shoulder. Patient agrees with this plan of care. I will refill the patient's Percocet 10 mg 3 times a day, pregabalin 100 mg 3 times a day and methocarbamol 500 mg 3 times a day and provide a 1 month supply of these medications. Risks and benefits of the medication have been explained in detail to the patient. The patient does understand the risk of dependence on the medication when given over a prolonged period. Patient has been advised of risks of oversedation with the prescribed medication. Narcan has been offered to the paitent in the event of oversedation. Patient has been advised that a family member should also be educated regarding administration of Narcan. The patient has been advised to consult with his/her primary care provider and pharmacist regarding drug-drug interaction of medications currently prescribed. Patient has been prescribed a controlled substance after being counseled on the medication, medication safety, and possible side effects. Opioid contract was reviewed and signed by the patient, and that they have agreed to all of the terms set forth by our compliance program. Patient has been instructed to contact the clinic with any concerns before the next appointment. Dr. Quinones has reviewed this note and agrees with this plan of care. This note was dictated using voice recognition software and make contain errors or omissions. [facility] Disclaimer: The information contained in this section may have been updated after the patient was seen, as this information can be updated by other users. Medical History Colonoscopy planned Implantable intrathecal infusion pump present Rheumatoid arthritis History of chest pain Surgical History [place] teeth extracted History of cholecystectomy Family History Family/Other Colon cancer Other Family history of diabetes mellitus type II Family history of hyperlipidemia Family history of hypertension Social History Smoking Status: Current every day smoker tobacco type: cigarettes packs per day: 1 second hand exposure: No alcohol intake: never substance use type: denies use current occupational status: employed Travel in the last 8 weeks: None household members: other housing: house lives independently: Yes marital status: education level: college service: No current occupational exposures/hazards: No caffeine: Yes special marilin needs: No agree to transfusion: No do you feel safe at home: Yes victim of physical abuse: No victim of emotional abuse: No victim of sexual abuse: No would you like helpful sources: No
== END 2024-02-18 23:59 | disposition home or self-care (01) ==
PROVIDERS: PCP Family Medicine; Visit Provider Nurse Practitioner Family
DX: M51.16 Intervertebral disc disorders with radiculopathy, lumbar region (principal); M25.561 Pain in right knee; M25.562 Pain in left knee; M25.512 Pain in left shoulder
CPT/HCPCS: 99212; G0463

== ENCOUNTER 2024-02-24 15:10 | Outpatient (CLI) | payer BC, SELFPAY ==
--- NOTE | 2024-02-24 15:18 | XR_ITS ---
FINAL REPORT CLINICAL HISTORY: knee pain..positive jayla test COMPARISON: None FINDINGS: RIGHT KNEE: 4 images of the right knee were obtained. There is no evidence of fracture or dislocation. The joint spaces are intact. Minimal chondrocalcinosis is noted in the knee joint. There is no soft tissue abnormality identified. IMPRESSION: No acute bony abnormality. Reviewed, Interpreted and Dictated by Mack Rojas MD Transcribed by Casie Dos Santos Authenticated and [facility]
== END 2024-02-24 23:59 | disposition home or self-care (01) ==
LOC: RAD 15:11
PROVIDERS: PCP Family Medicine; Visit Provider Family Medicine
DX: M25.561 Pain in right knee (principal); S83.206A Unspecified tear of unspecified meniscus, current injury, right knee, initial encounter
CPT/HCPCS: 73562

== ENCOUNTER 2024-02-29 16:19 | Outpatient (CLI) | payer BC, SELFPAY ==
[2024-02-29 16:39] LABS: Basophils # 0.1 K/mm3 (0-0.2); Eosinophils # 0.5 K/mm3 (0.0-0.4); Eosinophils % 3.4 % (0.1-12.0); Hematocrit 47.4 % (42.0-52.0); Hemoglobin 15.8 g/dL (14.1-18.0); Lymphocytes # 5.5 K/mm3 (0.7-4.5); Lymphocytes % 36.8 % (10-50); Mean Corpuscular HGB Conc 33.4 g/dL (31.8-35.4); Mean Corpuscular Hemoglobin 29.7 pg (27.0-31.2); Mean Platelet Volume 7.9 fl (7.4-10.4); Monocytes # 0.4 K/mm3 (0.1-1.0); Monocytes % 2.9 % (1.7-9.3); Neutrophils # 8.3 K/mm3 (1.8-7.8); Neutrophils % 55.8 % (37.0-80.0); Platelet Count 305 K/mm3 (142-424); Red Blood Count 5.33 M/mm3 (4.60-6.20); Red Cell Distribution Width 14.5 % (11.5-17.5); White Blood Count 14.8 K/mm3 (4.8-10.8)
[2024-02-29 17:19] LABS: Erythrocyte Sedimentation Rate 8 mm/hr (0-15)
[2024-02-29 17:22] LABS: Alanine Aminotransferase 33 U/L (12-78); Albumin Level 4.2 g/dl (3.5-5.0); Albumin/Globulin Ratio 1.6 (1.1-1.8); Alkaline Phosphatase 88 U/L (38-126); Anion Gap 11.3 mEq/L (5-15); Aspartate Amino Transferase 34 U/L (17-59); Bilirubin,Total 0.8 mg/dl (0.2-1.3); Blood Urea Nitrogen 9 mg/dl (9-20); Calcium 9.4 mg/dl (8.4-10.2); Carbon Dioxide 22 mmol/L (22.0-30.0); Chloride 110 mmol/L (98-107); Estimated Glomerular Filt Rate 92 ml/min (>60); GFR (African American) 111 ML/MIN (>60); Globulin 2.7 g/dL (1.3-3.2); Glucose 131 mg/dl (74-100); Potassium 4.3 mmoL/L (3.5-5.1); Sodium 139 mmol/L (136-145); Total Protein,Serum 6.9 g/dl (6.3-8.2)
[2024-02-29 17:27] LABS: C-Reactive Protein 7.9 mg/L (0-4)
== END 2024-02-29 23:59 | disposition home or self-care (01) ==
LOC: LAB 16:20
PROVIDERS: PCP Family Medicine; Visit Provider Internal Medicine Rheumatology
DX: M05.79 Rheumatoid arthritis with rheumatoid factor of multiple sites without organ or systems involvement (principal); Z79.899 Other long term (current) drug therapy
CPT/HCPCS: 36415; 80053; 85025; 85651; 86140

== ENCOUNTER 2024-03-17 08:20 | Outpatient (POV) | payer BC, SELFPAY ==
[2024-03-17 08:33] VITALS: BP 124/86; PULSE 72; RESP 18; O2SAT 96; BMI 43.0
--- NOTE | 2024-03-17 09:05 | A.OFFVIS_ITS ---
[facility] Pain Management SOAP Note Subjective:: Patient is a pleasant 43-year-old male who presents today for medication refill and follow-up. Today he rates his pain an 8 out of 10. Patient states that he just feels like he has a lot of fatigue. 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 He states he was recently changed on a different medication of Rinvoq. He states that he did talk to that office who prescribed it and they had no history of having anybody complaining of increased fatigue. Patient denies any other changes. He is currently managed with Percocet 10 mg 3 times a day, pregabalin 100 mg 3 times a day and methocarbamol 500 mg 3 times a day. He denies any side effects from this medication. His Perry has been reviewed and is appropriate. Review of Systems: General: No recent weight changes, no fever, no sleep disturbances Respiratory: No cough, no shortness of air, no recurring pulmonary infections Cardiovascular/peripheral vascular: No chest pain, no palpitations, no edema, no shortness of breath Gastrointestinal: No new onset incontinence, normal bowel movements reported Genitourinary: No new onset incontinence Musculoskeletal: Low back pain Psychiatric: [Normal mood/affect] Neurological: [Denies weakness in extremities], [denies balance issues] Objective:: Physical Exam: General: Alert and oriented x3, no acute distress, pleasant and cooperative Lungs: Respirations even and unlabored, symmetrical chest expansion Eyes: PERRL Musculoskeletal: Flexion and extension of lumbar [spine] somewhat guarded secondary to pain, [antalgic gait noted] Neurological: Speech clear, no gross sensory deficit Assessment:: Degenerative disc disease of lumbar spine with lumbar radiculopathy symptoms, bilateral knee pain, left shoulder pain Plan:: I will refill the patient's methocarbamol, pregabalin and Percocet provide 1 month supply of this medication. This patient will return to clinic in 1 month for reevaluation of symptoms and plan of care. Risks and benefits of the medication have been explained in detail to the patient. The patient does understand the risk of dependence on the medication when given over a prolonged period. Patient has been advised of risks of oversedation with the prescribed medication. Narcan has been offered to the paitent in the event of oversedation. Patient has been advised that a family member should also be educated regarding administration of Narcan. The patient has been advised to consult with his/her primary care provider and pharmacist regarding drug-drug interaction of medications currently prescribed. Patient has been prescribed a controlled substance after being counseled on the medication, medication safety, and possible side effects. Opioid contract was reviewed and signed by the patient, and that they have agreed to all of the terms set forth by our compliance program. Patient has been instructed to contact the clinic with any concerns before the next appointment. Dr. Quinones has reviewed this note and agrees with this plan of care. This note was dictated using voice recognition software and make contain errors or omissions. [facility] Disclaimer: The information contained in this section may have been updated after the patient was seen, as this information can be updated by other users. Medical History Colonoscopy planned Implantable intrathecal infusion pump present Rheumatoid arthritis History of chest pain Surgical History [place] teeth extracted History of cholecystectomy Family History Family/Other Colon cancer Other Family history of diabetes mellitus type II Family history of hyperlipidemia Family history of hypertension Social History Smoking Status: Current every day smoker tobacco type: cigarettes packs per day: 1 second hand exposure: No alcohol intake: never substance use type: denies use current occupational status: employed Travel in the last 8 weeks: None household members: other housing: house lives independently: Yes marital status: education level: college service: No current occupational exposures/hazards: No caffeine: Yes special marilin needs: No agree to transfusion: No do you feel safe at home: Yes victim of physical abuse: No victim of emotional abuse: No victim of sexual abuse: No would you like helpful sources: No
== END 2024-03-17 23:59 | disposition home or self-care (01) ==
PROVIDERS: PCP Family Medicine; Visit Provider Nurse Practitioner Family
DX: M51.16 Intervertebral disc disorders with radiculopathy, lumbar region (principal); M25.561 Pain in right knee; M25.562 Pain in left knee; M25.512 Pain in left shoulder
CPT/HCPCS: 99212; G0463

== ENCOUNTER 2024-04-18 08:07 | Outpatient (POV) | payer BC, SELFPAY ==
[2024-04-18 08:55] VITALS: BP 124/84; PULSE 70; RESP 18; O2SAT 95; BMI 40.6
--- NOTE | 2024-04-18 09:06 | EXP.PAIN.SOA ---
[facility] Pain Management SOAP Note Subjective:: Patient is a pleasant 43-year-old male who presents today for 1 month follow-up and medication refill. Today he rates his pain an 8 out of 10. He denies any new trauma or injury. He is currently managed with Percocet 10 mg 3 times a day, pregabalin 100 mg 3 times a day and methocarbamol 500 mg 3 times a day. He denies any side effects from this medication. His Perry has been reviewed and is appropriate. Review of Systems: General: No recent weight changes, no fever, no sleep disturbances Respiratory: No cough, no shortness of air, no recurring pulmonary infections Cardiovascular/peripheral vascular: No chest pain, no palpitations, no edema, no shortness of breath Gastrointestinal: No new onset incontinence, normal bowel movements reported Genitourinary: No new onset incontinence Musculoskeletal: Low back pain Psychiatric: [Normal mood/affect] Neurological: [Denies weakness in extremities], [denies balance issues] Objective:: Physical Exam: General: Alert and oriented x3, no acute distress, pleasant and cooperative Lungs: Respirations even and unlabored, symmetrical chest expansion Eyes: PERRL Musculoskeletal: Flexion and extension of lumbar [spine] somewhat guarded secondary to pain, [antalgic gait noted] Neurological: Speech clear, no gross sensory deficit Assessment:: Degenerative disc disease of lumbar spine with lumbar radiculopathy symptoms, bilateral knee pain, left shoulder pain Plan:: I will refill the patient's Percocet, pregabalin and methocarbamol provide a 1 month supply of this medication. I have also discussed with the patient in future we do still have the option to go back and replace his intrathecal pain pump. Patient did have a successful trial and was implanted however ended up having a nonfunctioning flowonix pump implanted. Patient at that time did not have vacation buildup to have this removed and replaced. Patient was counseled that we can always go back to having this device replaced. We will follow-up with this on future visits. Risks and benefits of the medication have been explained in detail to the patient. The patient does understand the risk of dependence on the medication when given over a prolonged period. Patient has been advised of risks of oversedation with the prescribed medication. Narcan has been offered to the paitent in the event of oversedation. Patient has been advised that a family member should also be educated regarding administration of Narcan. The patient has been advised to consult with his/her primary care provider and pharmacist regarding drug-drug interaction of medications currently prescribed. Patient has been prescribed a controlled substance after being counseled on the medication, medication safety, and possible side effects. Opioid contract was reviewed and signed by the patient, and that they have agreed to all of the terms set forth by our compliance program. Patient has been instructed to contact the clinic with any concerns before the next appointment. Dr. Quinones has reviewed this note and agrees with this plan of care. This note was dictated using voice recognition software and make contain errors or omissions. [facility] Disclaimer: The information contained in this section may have been updated after the patient was seen, as this information can be updated by other users. Medical History Colonoscopy planned Implantable intrathecal infusion pump present Rheumatoid arthritis History of chest pain Surgical History [place] teeth extracted History of cholecystectomy Family History Family/Other Colon cancer Other Family history of diabetes mellitus type II Family history of hyperlipidemia Family history of hypertension Social History Smoking Status: Current every day smoker tobacco type: cigarettes packs per day: 1 second hand exposure: No alcohol intake: never substance use type: denies use current occupational status: employed Travel in the last 8 weeks: None household members: other housing: house lives independently: Yes marital status: education level: college service: No current occupational exposures/hazards: No caffeine: Yes special marilin needs: No agree to transfusion: No do you feel safe at home: Yes victim of physical abuse: No victim of emotional abuse: No victim of sexual abuse: No would you like helpful sources: No
== END 2024-04-18 23:59 | disposition home or self-care (01) ==
PROVIDERS: PCP Family Medicine; Visit Provider Nurse Practitioner Family
DX: G89.29 Other chronic pain (principal); M51.36 Other intervertebral disc degeneration, lumbar region; M54.16 Radiculopathy, lumbar region; M25.561 Pain in right knee; M25.562 Pain in left knee; M06.9 Rheumatoid arthritis, unspecified
CPT/HCPCS: 99212; G0463

== ENCOUNTER 2024-05-18 15:29 | Outpatient (POV) | payer SELFPAY ==
[2024-05-18 15:37] VITALS: BP 136/95; PULSE 72; RESP 16; O2SAT 96; BMI 42.7
--- NOTE | 2024-05-18 15:52 | A.OFFVIS_ITS ---
[facility] Disclaimer: The information contained in this section may have been updated after the patient was seen, as this information can be updated by other users. Medical History Colonoscopy planned Implantable intrathecal infusion pump present Rheumatoid arthritis History of chest pain Surgical History [place] teeth extracted History of cholecystectomy Family History Family/Other Colon cancer Other Family history of diabetes mellitus type II Family history of hyperlipidemia Family history of hypertension Social History Smoking Status: Current every day smoker tobacco type: cigarettes packs per day: 1 second hand exposure: No alcohol intake: never substance use type: denies use current occupational status: unemployed Travel in the last 8 weeks: None household members: other housing: house lives independently: Yes marital status: education level: college service: No current occupational exposures/hazards: No caffeine: Yes special marilin needs: No agree to transfusion: No do you feel safe at home: Yes victim of physical abuse: No victim of emotional abuse: No victim of sexual abuse: No would you like helpful sources: No PM Subjective & Objective Subjective Subjective:: Patient is a pleasant 43-year-old male who presents today for medication refill. Today he rates his pain an 8 out of 10. Patient denies any new trauma or injury. He does state from our last visit that he no longer is working at [employer]. 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 Patient does state that he has contemplated about working here around our local [employer] and he is also thinking about possibly trying for disability. Patient is currently managed with Percocet 10 mg 3 times a day, pregabalin 100 mg 3 times a day and methocarbamol 500 mg 3 times a day. He denies any side effects from this medication. His Perry has been reviewed and is appropriate. Review of Systems: General: No recent weight changes, no fever, no sleep disturbances Respiratory: No cough, no shortness of air, no recurring pulmonary infections Cardiovascular/peripheral vascular: No chest pain, no palpitations, no edema, no shortness of breath Gastrointestinal: No new onset incontinence, normal bowel movements reported Genitourinary: No new onset incontinence Musculoskeletal: Low back pain Psychiatric: [Normal mood/affect] Neurological: [Denies weakness in extremities], [denies balance issues] Pain at rest (0-10 scale): 8 Objective Objective:: Physical Exam: General: Alert and oriented x3, no acute distress, pleasant and cooperative Lungs: Respirations even and unlabored, symmetrical chest expansion Eyes: PERRL Musculoskeletal: Flexion and extension of lumbar [spine] somewhat guarded secondary to pain, [antalgic gait noted] Neurological: Speech clear, no gross sensory deficit Has patient had previous pain injection?: No Conservative treatment options previously tried: Home exercise plan Length of treatment: Longer than 6 weeks Meds Home Medications and Allergies Home Medications ?Medication ?Instructions ?Recorded ?Confirmed ?Type ibuprofen 800 mg tablet 800 mg PO DAILY Pain 11/19/21 05/18/24 History omeprazole 40 mg capsule,delayed 40 mg PO DAILY GERD 11/19/21 05/18/24 History release potassium chloride 10 mEq 10 meq PO DAILY supplement 11/19/21 05/18/24 History capsule,extended release methocarbamol 500 mg tablet 500 mg PO TID #90 tabs 04/18/24 05/18/24 Rx oxycodone-acetaminophen 10 mg-325 1 tab PO TID Pain #90 tabs 04/18/24 05/18/24 Rx mg tablet (Percocet) pregabalin 100 mg capsule 100 mg PO TID #90 caps 04/18/24 05/18/24 Rx New Prescriptions to Start Prescriptions: Allergies Allergy/AdvReac Type Severity Reaction Status Date / Time morphine [MORPHINE] Allergy Unknown Verified 01/07/24 13:46 BEE STING Allergy Unknown Uncoded 01/07/24 13:46 Assessment and Plan *Assessment and plan (1) Lumbar radiculopathy: Status: Chronic Category: Medical Code(s): M54.16 - Radiculopathy, lumbar region (2) Degenerative disc disease, lumbar: Status: Chronic Category: Medical Code(s): M51.36 - Other intervertebral disc degeneration, lumbar region Plan I will refill the patient's Percocet, pregabalin and methocarbamol and provide a 1 month supply of this medication. Patient will return to clinic in 1 month for reevaluation of symptoms and plan of care. Risks and benefits of the medication have been explained in detail to the patient. The patient does understand the risk of dependence on the medication when given over a prolonged period. Patient has been advised of risks of oversedation with the prescribed medication. Narcan has been offered to the paitent in the event of oversedation. Patient has been advised that a family member should also be educated regarding administration of Narcan. The patient has been advised to consult with his/her primary care provider and pharmacist regarding drug-drug interaction of medications currently prescribed. Patient has been prescribed a controlled substance after being counseled on the medication, medication safety, and possible side effects. Opioid contract was reviewed and signed by the patient, and that they have agreed to all of the terms set forth by our compliance program. Patient has been instructed to contact the clinic with any concerns before the next appointment. Dr. Quinones has reviewed this note and agrees with this plan of care. This note was dictated using voice recognition software and make contain errors or omissions.
== END 2024-05-18 23:59 | disposition home or self-care (01) ==
PROVIDERS: PCP Family Medicine; Visit Provider Nurse Practitioner Family
DX: M51.16 Intervertebral disc disorders with radiculopathy, lumbar region (principal); Z97.8 Presence of other specified devices; F17.210 Nicotine dependence, cigarettes, uncomplicated
CPT/HCPCS: 99212; G0463

== ENCOUNTER 2024-06-16 14:56 | Outpatient (POV) | payer SELFPAY ==
[2024-06-16 15:14] VITALS: BP 135/90; PULSE 77; RESP 18; O2SAT 96; BMI 42.4
--- NOTE | 2024-06-16 16:09 | EXP.PAIN.SOA ---
[facility] Disclaimer: The information contained in this section may have been updated after the patient was seen, as this information can be updated by other users. Medical History Colonoscopy planned Implantable intrathecal infusion pump present Rheumatoid arthritis History of chest pain Surgical History [place] teeth extracted History of cholecystectomy Family History Family/Other Colon cancer Other Family history of diabetes mellitus type II Family history of hyperlipidemia Family history of hypertension Social History Smoking Status: Current every day smoker tobacco type: cigarettes packs per day: 1 second hand exposure: No alcohol intake: never substance use type: denies use current occupational status: unemployed Travel in the last 8 weeks: None household members: other housing: house lives independently: Yes marital status: education level: college service: No current occupational exposures/hazards: No caffeine: Yes special marilin needs: No agree to transfusion: No do you feel safe at home: Yes victim of physical abuse: No victim of emotional abuse: No victim of sexual abuse: No would you like helpful sources: No PM Subjective & Objective Subjective Subjective:: Patient is a pleasant 43-year-old male who presents today for medication refill and follow-up. Today he rates his pain an 8 out of 10. Patient denies any new trauma or injury. He does state he continues to have his chronic low back and leg symptoms. Patient does also states that he continues to have RA symptoms that affect multiple joints. He states yesterday it was his left elbow and today its his right knee. Patient was on Remicade however it was denied with his last insurance and he is no longer able to do this due to not having insurance currently. Patient is currently managed with Percocet 10 mg 3 times a day, pregabalin 100 mg 3 times a day and methocarbamol 500 mg 3 times a day from our office. He denies any side effects from this medication. His Perry has been reviewed and is appropriate. Review of Systems: General: No recent weight changes, no fever, no sleep disturbances Respiratory: No cough, no shortness of air, no recurring pulmonary infections Cardiovascular/peripheral vascular: No chest pain, no palpitations, no edema, no shortness of breath Gastrointestinal: No new onset incontinence, normal bowel movements reported Genitourinary: No new onset incontinence Musculoskeletal: Low back pain, generalized joint pain Psychiatric: [Normal mood/affect] Neurological: [Denies weakness in extremities], [denies balance issues] Pain at rest (0-10 scale): 8 Objective Objective:: Physical Exam: General: Alert and oriented x3, no acute distress, pleasant and cooperative Lungs: Respirations even and unlabored, symmetrical chest expansion Eyes: PERRL Musculoskeletal: Flexion and extension of lumbar [spine] somewhat guarded secondary to pain, [antalgic gait noted] Neurological: Speech clear, no gross sensory deficit Has patient had previous pain injection?: No Conservative treatment options previously tried: Home exercise plan Length of treatment: Longer than 6 weeks Meds Home Medications and Allergies Home Medications ?Medication ?Instructions ?Recorded ?Confirmed ?Type ibuprofen 800 mg tablet 800 mg PO DAILY Pain 11/19/21 06/16/24 History omeprazole 40 mg capsule,delayed 40 mg PO DAILY GERD 11/19/21 06/16/24 History release potassium chloride 10 mEq 10 meq PO DAILY supplement 11/19/21 06/16/24 History capsule,extended release methocarbamol 500 mg tablet 500 mg PO TID #90 tabs 04/18/24 06/16/24 Rx pregabalin 100 mg capsule 100 mg PO TID #90 caps 04/18/24 06/16/24 Rx oxycodone-acetaminophen 10 mg-325 1 tab PO TID Pain #90 tabs 05/19/24 06/16/24 Rx mg tablet (Percocet) New Prescriptions to Start Prescriptions: Allergies Allergy/AdvReac Type Severity Reaction Status Date / Time morphine [MORPHINE] Allergy Unknown Verified 01/07/24 13:46 BEE STING Allergy Unknown Uncoded 01/07/24 13:46 Assessment and Plan *Assessment and plan (1) Degenerative disc disease, lumbar: Status: Chronic Category: Medical Code(s): M51.36 - Other intervertebral disc degeneration, lumbar region (2) Lumbar radiculopathy: Status: Chronic Category: Medical Code(s): M54.16 - Radiculopathy, lumbar region (3) Rheumatoid arthritis: Status: Chronic Category: Medical Code(s): M06.9 - Rheumatoid arthritis, unspecified Plan I will refill the patient's [place], pregabalin and methocarbamol and provide a 1 month supply of his [place] and a 3-month supply of his other medications. I did discuss at length with the patient regarding a DOT physical form that we had gotten from an outside provider. 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 Patient does state that majority the time he would be in the back however he does acknowledge understanding on our part and says that not to worry about it that he will try and look for a different job. Patient does state that he does not want to discontinue his pain medication as it does significantly improve his symptoms. Patient will return to clinic in 1 month for reevaluation of symptoms and plan of care. Risks and benefits of the medication have been explained in detail to the patient. The patient does understand the risk of dependence on the medication when given over a prolonged period. Patient has been advised of risks of oversedation with the prescribed medication. Narcan has been offered to the paitent in the event of oversedation. Patient has been advised that a family member should also be educated regarding administration of Narcan. The patient has been advised to consult with his/her primary care provider and pharmacist regarding drug-drug interaction of medications currently prescribed. Patient has been prescribed a controlled substance after being counseled on the medication, medication safety, and possible side effects. Opioid contract was reviewed and signed by the patient, and that they have agreed to all of the terms set forth by our compliance program. Patient has been instructed to contact the clinic with any concerns before the next appointment. Dr. Quinones has reviewed this note and agrees with this plan of care. This note was dictated using voice recognition software and make contain errors or omissions.
== END 2024-06-16 23:59 | disposition home or self-care (01) ==
PROVIDERS: PCP Family Medicine; Visit Provider Nurse Practitioner Family
DX: M51.16 Intervertebral disc disorders with radiculopathy, lumbar region (principal); M06.9 Rheumatoid arthritis, unspecified; F17.210 Nicotine dependence, cigarettes, uncomplicated; Z97.8 Presence of other specified devices
CPT/HCPCS: 99212; G0463

== ENCOUNTER 2024-07-14 15:55 | Outpatient (POV) | payer SELFPAY ==
[2024-07-14 15:57] VITALS: BP 162/107; PULSE 90; RESP 16; O2SAT 95; BMI 47.6
--- NOTE | 2024-07-14 16:03 | A.OFFVIS_ITS ---
[facility] Disclaimer: The information contained in this section may have been updated after the patient was seen, as this information can be updated by other users. Medical History Colonoscopy planned Implantable intrathecal infusion pump present Rheumatoid arthritis History of chest pain Surgical History [place] teeth extracted History of cholecystectomy Family History Family/Other Colon cancer Other Family history of diabetes mellitus type II Family history of hyperlipidemia Family history of hypertension Social History Smoking Status: Current every day smoker tobacco type: cigarettes packs per day: 1 second hand exposure: No alcohol intake: never substance use type: denies use current occupational status: unemployed Travel in the last 8 weeks: None household members: other housing: house lives independently: Yes marital status: education level: college service: No current occupational exposures/hazards: No caffeine: Yes special marilin needs: No agree to transfusion: No do you feel safe at home: Yes victim of physical abuse: No victim of emotional abuse: No victim of sexual abuse: No would you like helpful sources: No PM Subjective & Objective Subjective Subjective:: Patient is a pleasant 43-year-old male who presents today for medication refill and follow-up. Today he rates his pain an 8 out of 10. He denies any new trauma or injury. Patient does state that he has recently gotten a new job with the [employer] and that it is Thursday through Thursday. Patient states he is just have a little bit more tiredness. He is currently managed with Percocet 10 mg 3 times a day, pregabalin 100 mg 3 times a day and methocarbamol 500 mg 3 times a day. He denies any side effects from this medication. His Perry has been reviewed and is appropriate. Review of Systems: General: No recent weight changes, no fever, no sleep disturbances Respiratory: No cough, no shortness of air, no recurring pulmonary infections Cardiovascular/peripheral vascular: No chest pain, no palpitations, no edema, no shortness of breath Gastrointestinal: No new onset incontinence, normal bowel movements reported Genitourinary: No new onset incontinence Musculoskeletal: Low back Psychiatric: [Normal mood/affect] Neurological: [Denies weakness in extremities], [denies balance issues] Pain at rest (0-10 scale): 8 Objective Objective:: Physical Exam: General: Alert and oriented x3, no acute distress, pleasant and cooperative Lungs: Respirations even and unlabored, symmetrical chest expansion Eyes: PERRL Musculoskeletal: Flexion and extension of lumbar [spine] somewhat guarded secondary to pain, [antalgic gait noted] Neurological: Speech clear, no gross sensory deficit Has patient had previous pain injection?: No Conservative treatment options previously tried: Prescription medications Length of treatment: Longer than 12 weeks Meds Home Medications and Allergies Home Medications ?Medication ?Instructions ?Recorded ?Confirmed ?Type ibuprofen 800 mg tablet 800 mg PO DAILY Pain 11/19/21 07/14/24 History omeprazole 40 mg capsule,delayed 40 mg PO DAILY GERD 11/19/21 07/14/24 History release potassium chloride 10 mEq 10 meq PO DAILY supplement 11/19/21 07/14/24 History capsule,extended release methocarbamol 500 mg tablet 500 mg PO TID #90 tabs 04/18/24 07/14/24 Rx pregabalin 100 mg capsule 100 mg PO TID #90 caps 04/18/24 07/14/24 Rx oxycodone-acetaminophen 10 mg-325 1 tab PO TID Pain #90 tabs 06/16/24 07/14/24 Rx mg tablet (Percocet) New Prescriptions to Start Prescriptions: Allergies Allergy/AdvReac Type Severity Reaction Status Date / Time morphine [MORPHINE] Allergy Unknown Verified 01/07/24 13:46 BEE STING Allergy Unknown Uncoded 01/07/24 13:46 Assessment and Plan *Assessment and plan (1) Degenerative disc disease, lumbar: Status: Chronic Category: Medical Code(s): M51.36 - Other intervertebral disc degeneration, lumbar region (2) Lumbar radiculopathy: Status: Chronic Category: Medical Code(s): M54.16 - Radiculopathy, lumbar region Plan We will refill the patient's Percocet and provide a 1 month supply of these medications. Patient just did have a 3-month supply of the pregabalin and methocarbamol prescribed at his last visit and does not need refills on these. Patient will return to clinic in 1 month for reevaluation of symptoms and plan of care. Risks and benefits of the medication have been explained in detail to the patient. The patient does understand the risk of dependence on the medication when given over a prolonged period. Patient has been advised of risks of oversedation with the prescribed medication. Narcan has been offered to the paitent in the event of oversedation. Patient has been advised that a family member should also be educated regarding administration of Narcan. The patient has been advised to consult with his/her primary care provider and pharmacist regarding drug-drug interaction of medications currently prescribed. Patient has been prescribed a controlled substance after being counseled on the medication, medication safety, and possible side effects. Opioid contract was reviewed and signed by the patient, and that they have agreed to all of the terms set forth by our compliance program. Patient has been instructed to contact the clinic with any concerns before the next appointment. Dr. Quinones has reviewed this note and agrees with this plan of care. This note was dictated using voice recognition software and make contain errors or omissions.
== END 2024-07-14 23:59 | disposition home or self-care (01) ==
PROVIDERS: PCP Family Medicine; Visit Provider Nurse Practitioner Family
DX: M51.16 Intervertebral disc disorders with radiculopathy, lumbar region (principal); Z97.8 Presence of other specified devices; F17.210 Nicotine dependence, cigarettes, uncomplicated
CPT/HCPCS: 99212; G0463

== ENCOUNTER 2024-08-11 15:43 | Outpatient (POV) | payer SELFPAY ==
--- NOTE | 2024-08-11 15:49 | A.OFFVIS_ITS ---
[facility] Disclaimer: The information contained in this section may have been updated after the patient was seen, as this information can be updated by other users. Medical History Colonoscopy planned Implantable intrathecal infusion pump present Rheumatoid arthritis History of chest pain Surgical History [place] teeth extracted History of cholecystectomy Family History Family/Other Colon cancer Other Family history of diabetes mellitus type II Family history of hyperlipidemia Family history of hypertension Social History Smoking Status: Current every day smoker tobacco type: cigarettes packs per day: 1 second hand exposure: No alcohol intake: never substance use type: denies use current occupational status: other Travel in the last 8 weeks: None household members: other housing: house lives independently: Yes marital status: education level: college service: No current occupational exposures/hazards: No caffeine: Yes special marilin needs: No agree to transfusion: No do you feel safe at home: Yes victim of physical abuse: No victim of emotional abuse: No victim of sexual abuse: No would you like helpful sources: No PM Subjective & Objective Subjective Subjective:: Patient is a pleasant 43-year-old male who presents today for medication refill. Today he rates his pain an 8 out of 10. He denies any new trauma or injury. He is currently managed with Percocet 10 mg 3 times a day, pregabalin 100 mg 3 times a day and methocarbamol 500 mg 3 times a day. He denies any side effects from this medication. His Perry has been reviewed and is appropriate. Review of Systems: General: No recent weight changes, no fever, no sleep disturbances Respiratory: No cough, no shortness of air, no recurring pulmonary infections Cardiovascular/peripheral vascular: No chest pain, no palpitations, no edema, no shortness of breath Gastrointestinal: No new onset incontinence, normal bowel movements reported Genitourinary: No new onset incontinence Musculoskeletal: Low back Psychiatric: [Normal mood/affect] Neurological: [Denies weakness in extremities], [denies balance issues] Pain at rest (0-10 scale): 8 Objective Objective:: Physical Exam: General: Alert and oriented x3, no acute distress, pleasant and cooperative Lungs: Respirations even and unlabored, symmetrical chest expansion Eyes: PERRL Musculoskeletal: Flexion and extension of lumbar [spine] somewhat guarded secondary to pain, [antalgic gait noted] Neurological: Speech clear, no gross sensory deficit Has patient had previous pain injection?: No Conservative treatment options previously tried: Home exercise plan Length of treatment: Longer than 6 weeks Meds Home Medications and Allergies Home Medications ?Medication ?Instructions ?Recorded ?Confirmed ?Type ibuprofen 800 mg tablet 800 mg PO DAILY Pain 11/19/21 07/14/24 History omeprazole 40 mg capsule,delayed 40 mg PO DAILY GERD 11/19/21 07/14/24 History release potassium chloride 10 mEq 10 meq PO DAILY supplement 11/19/21 07/14/24 History capsule,extended release methocarbamol 500 mg tablet 500 mg PO TID #90 tabs 07/14/24 Rx pregabalin 100 mg capsule 100 mg PO TID #90 caps 07/14/24 Rx oxycodone-acetaminophen 10 mg-325 1 tab PO TID Pain #90 tabs 08/11/24 Rx mg tablet (Percocet) New Prescriptions to Start Prescriptions: oxycodone-acetaminophen [Percocet] Bux,Jose D Allergies Allergy/AdvReac Type Severity Reaction Status Date / Time morphine [MORPHINE] Allergy Unknown Verified 01/07/24 13:46 BEE STING Allergy Unknown Uncoded 01/07/24 13:46 Assessment and Plan *Assessment and plan (1) Lumbar radiculopathy: Status: Chronic Category: Medical Code(s): M54.16 - Radiculopathy, lumbar region (2) Degenerative disc disease, lumbar: Status: Chronic Category: Medical Code(s): M51.36 - Other intervertebral disc degeneration, lumbar region Plan We will refill the patient's Percocet and provide a 1 month supply of this medication. Patient did have he has pregabalin and methocarbamol sent in with a 3-month supply at his last visit and is good until September. Patient will return to clinic in 1 month for reevaluation of symptoms and plan of care. Risks and benefits of the medication have been explained in detail to the patient. The patient does understand the risk of dependence on the medication when given over a prolonged period. Patient has been advised of risks of oversedation with the prescribed medication. Narcan has been offered to the paitent in the event of oversedation. Patient has been advised that a family member should also be educated regarding administration of Narcan. The patient has been advised to consult with his/her primary care provider and pharmacist regarding drug-drug interaction of medications currently prescribed. Patient has been prescribed a controlled substance after being counseled on the medication, medication safety, and possible side effects. Opioid contract was reviewed and signed by the patient, and that they have agreed to all of the terms set forth by our compliance program. Patient has been instructed to contact the clinic with any concerns before the next appointment. Dr. Quinones has reviewed this note and agrees with this plan of care. This note was dictated using voice recognition software and make contain errors or omissions.
[2024-08-11 16:19] VITALS: BP 139/97; PULSE 76; RESP 16; O2SAT 97; BMI 44.9
== END 2024-08-11 23:59 | disposition home or self-care (01) ==
PROVIDERS: PCP Family Medicine; Visit Provider Nurse Practitioner Family
DX: M51.16 Intervertebral disc disorders with radiculopathy, lumbar region (principal); Z97.8 Presence of other specified devices; F17.210 Nicotine dependence, cigarettes, uncomplicated
CPT/HCPCS: 99212; G0463

== ENCOUNTER 2024-08-17 08:03 | Emergency (ER) | payer SELFPAY ==
[2024-08-17 08:05] VITALS: BP 144/75; PULSE 70; RESP 18; TEMP 36.4; O2SAT 95; BMI 31.3
--- NOTE | 2024-08-17 08:23 | CT_ITS ---
PROCEDURE INFORMATION: Exam: CT Abdomen And Pelvis With Contrast Exam date and time: 08/17/2024 9:03 AM Age: 43 years old Clinical indication: Abdominal pain; Additional info: Umbilical pain/nausea/anorexia TECHNIQUE: Imaging protocol: Computed tomography of the abdomen and pelvis with contrast. Radiation optimization: All CT scans at this facility use at least one of these dose optimization techniques: automated exposure control; mA and/or kV adjustment per patient size (includes targeted exams where dose is matched to clinical indication); or iterative reconstruction. Contrast material: ISOVUE; Contrast volume: 75 ml; Contrast route: IV; COMPARISON: CT ABDOMEN PELVIS W CON 12/28/2022 1:24 PM FINDINGS: Liver: Mild fatty infiltration of the liver. Gallbladder and biliary ducts: Gallbladder is surgically removed. Pancreas: Normal. No ductal dilation. Spleen: Normal. No splenomegaly. Adrenal glands: Normal. No mass. Kidneys and ureters: Normal. No hydronephrosis. Stomach and bowel: Unremarkable. No obstruction. No mucosal thickening. Appendix: No evidence of appendicitis. Intraperitoneal space: Unremarkable. No free air. No significant fluid collection. Vasculature: Unremarkable. No abdominal aortic aneurysm. Lymph nodes: Unremarkable. No enlarged lymph nodes. Urinary bladder: Unremarkable as visualized. Reproductive: Unremarkable as visualized. Bones/joints: Unremarkable. No acute fracture. Soft tissues: Fat containing umbilical hernia with mild inflammatory change. IMPRESSION: 1. Fatty infiltration liver. 2. Postop cholecystectomy surgical change. 3. Fat containing umbilical hernia with inflammatory change
--- NOTE | 2024-08-17 08:24 | ED_ITS ---
Discharge Plan Disposition Condition: Good Chief Complaint: Recheck/Abnormal Lab/Rx Prescriptions Prescriptions: No Action potassium chloride 10 MEQ capsule, extended release 10 meq PO DAILY ibuprofen 800 MG tablet 800 mg PO DAILY omeprazole 40 MG capsule,delayed release(DR/EC) 40 mg PO DAILY methocarbamol 500 mg tablet 500 mg PO TID Qty: 90 2RF pregabalin 100 mg capsule 100 mg PO TID Qty: 90 2RF oxycodone-acetaminophen [Percocet] 10-325 mg tablet 1 tab PO TID Qty: 90 0RF Referrals Follow up/Referrals: Nacho Bronson MD [Primary Care Provider] - See instructions Tyler Leo MD [Staff Physician] - See instructions Vinny Hu MD [Staff Physician] - See instructions Activity Restrictions/Add. Instructions Additional Instructions/Restrictions: You were evaluated in the emergency department today and diagnosed with an umbilical hernia. Please follow-up outpatient with general surgery. We have provided you with information for Dr. Leo and Dr. Hu. Monitor for signs of obstruction related to this, such as intractable nausea and vomiting, inability to tolerate oral intake, or significant worsening in pain. Take Tylenol and ibuprofen at home as needed for pain. I recommend limiting heavy lifting, as this can worsen symptoms. Clinical Impressions Clinical Impression: Hernia, umbilical Stand Alone Forms Stand Alone Forms: Work/School Release Instructions Patient Instructions: DI for Ventral Hernia Print Language Print Language: Guamanian Discharge ED Provider: Zuly Mirza General Adult HPI General Chief complaint: Recheck/Abnormal Lab/Rx Stated complaint: WC-Pain in belly button, possible hernia Time Seen by Provider: 08/17/24 08:07 Mode of Arrival: Ambulatory Source of Information: Patient Limitations: No Limitations Description of Symptoms (Recalled from ER Triage Doc. by RN): c/o belly button popping yesterday with pain. STates that he belly button just feels more full than normal. History of Present Illness HPI narrative: This patient is a 43-year-old male with a history of obesity, rheumatoid arthritis, and GERD presenting to the emergency department for evaluation with concern for abdominal pain. Patient reports that he picked up something heavy at work yesterday and felt a pop in his bellybutton. He states that he is had pain in his bellybutton since then and his bellybutton feels more full than normal. He also notes nausea and feels like he has not had much of an appetite. He is still passing gas and having normal bowel movements. No other concerns noted and he was well prior to this. He denies any prior abdominal issues or abdominal surgeries Related Data Home Medications ?Medication ?Instructions ?Recorded ?Confirmed ibuprofen 800 mg tablet 800 mg PO DAILY Pain 11/19/21 08/11/24 omeprazole 40 mg capsule,delayed 40 mg PO DAILY GERD 11/19/21 08/11/24 release potassium chloride 10 mEq 10 meq PO DAILY supplement 11/19/21 08/11/24 capsule,extended release Previous Rx's ?Medication ?Instructions ?Recorded methocarbamol 500 mg tablet 500 mg PO TID #90 tabs 07/14/24 pregabalin 100 mg capsule 100 mg PO TID #90 caps 07/14/24 oxycodone-acetaminophen 10 mg-325 1 tab PO TID Pain #90 tabs 08/11/24 mg tablet (Percocet) Allergies Allergy/AdvReac Type Severity Reaction Status Date / Time morphine [MORPHINE] Allergy Unknown Unknown Verified 08/17/24 09:02 allergy reaction bee venom protein (honey bee) Allergy Anaphylaxis Verified 08/17/24 09:02 [facility] Disclaimer: The information contained in this section may have been updated after the patient was seen, as this information can be updated by other users. Medical History Colonoscopy planned Implantable intrathecal infusion pump present Rheumatoid arthritis History of chest pain Surgical History [place] teeth extracted History of cholecystectomy Family History Family/Other Colon cancer Other Family history of diabetes mellitus type II Family history of hyperlipidemia Family history of hypertension Social History Smoking Status: Unknown if ever smoked second hand exposure: No alcohol intake: never substance use type: denies use current occupational status: employed and other Travel in the last 8 weeks: None household members: other housing: house lives independently: Yes marital status: education level: college service: No current occupational exposures/hazards: No caffeine: Yes special marilin needs: No agree to transfusion: No do you feel safe at home: Yes victim of physical abuse: No victim of emotional abuse: No victim of sexual abuse: No would you like helpful sources: No Other Medical History Have you received the Flu Vaccine for this season: No Have you received the Pneumonia Vaccine: No ROS Obtained: Yes All systems reviewed & no additional complaints except as documented Physical Exam General General appearance: alert, in no apparent distress and obese Head Head exam: atraumatic and normocephalic Eye Eye exam: Present normal appearance, PERRL and EOMI ENT ENT exam: Present normal exam, normal oropharynx, mucous membranes moist and normal external ear exam Neck Neck exam: Present normal inspection, full ROM and trachea midline; Absent tenderness Chest Chest inspection: Present normal inspection and symmetric chest wall rise; Absent tenderness Respiratory Respiratory exam: Present normal lung sounds bilaterally; Absent respiratory distress, wheezes, stridor or accessory muscle use Cardiovascular Cardiovascular exam: Present regular rate and normal rhythm Abdominal Exam Abdominal exam: Present soft and tenderness (Umbilical); Absent distention, guarding, rebound or rigidity Comment: Body habitus limits exam Extremities Exam Extremities exam: Present normal inspection, full ROM and normal capillary refill; Absent tenderness or edema Back Exam Back exam: Present normal inspection and full ROM; Absent tenderness Neurological Exam Neurological exam: Present alert, oriented X3, CN II-XII intact and normal gait; Absent motor sensory deficit Psychiatric Psychiatric exam: Present normal affect and normal mood Skin Skin exam: Present warm and dry Medical Decision Making Medical Records Medical records reviewed: Yes I reviewed the patient's medical records. Screening: Per USPSTF and CDC recommendations, given the prevalence of disease in our region, it is our hospital?s policy to screen for HIV and viral Hepatitis for all patients aged 18 and over and those with ongoing risk factors. Perry Inquiry Pt receiving controlled substance: No Vital Signs: 08/17/24 08:05 08/17/24 08:31 Temperature 97.6 F Temperature Source Oral Pulse Rate 71 Pulse Rate [Left Radial] 70 Respiratory Rate 18 Blood Pressure 135/98 H Blood Pressure [Right Arm] 144/75 H Blood Pressure Mean [Right Arm] 98 Blood Pressure Source [Right Arm] Automatic Cuff Blood Pressure Position [Right Arm] Sitting 02 Sat by Pulse Oximetry 95 96 Oxygen Delivery Method Room Air Lab Data Lab results reviewed: Yes I reviewed the patient's lab results. Lab Results 08/17/24 08:34: WBC 15.7 H, RBC 5.19, Hgb 15.5, Hct 46.2, MCV 89.0, MCH 29.9, MCHC 33.6, RDW 13.8, Plt Count 353, MPV 7.2 L, Neut % (Auto) 74.5, Lymph % (Auto) 18.2, [place] % (Auto) 3.4, Eos % (Auto) 3.3, Baso % (Auto) 0.6, Neut # (Auto) 11.7 H, Lymph # (Auto) 2.9, [place] # (Auto) 0.5, Eos # (Auto) 0.5 H, Baso # (Auto) 0.1, Total Counted 100, Neutrophils % (Manual) 66, Lymphocytes % (Manual) 31, Monocytes % (Manual) 2, Eosinophils % (Manual) 1, Platelet Estimate Normal, RBC Morphology Normal, Sodium 138, Potassium 4.3, Chloride 107, Carbon Dioxide 23, Anion Gap 12.3, BUN 12, Creatinine 0.90, Estimated Creat Clear 155, Estimated GFR 92, Est GFR ( Amer) 111, Glucose 99, Calcium 9.3, Total Bilirubin 0.6, AST 31, ALT 27, Alkaline Phosphatase 84, Total Protein 7.6, Albumin 4.3, Globulin 3.3 H, Albumin/Globulin Ratio 1.3, Lipase 51 08/17/24 08:34 08/17/24 08:34 Orders (Tests/Meds): ED MEDICATIONS Discontinued Medications Generic Name Dose Route Start Last Admin Trade Name Freq PRN Reason Stop Dose Admin Iopamidol 75 ml 08/17/24 09:00 08/17/24 09:01 Iopamidol-370 (76%);100ml Bottle IV 08/17/24 09:01 75 ml ONCE ONE Administration Ketorolac Tromethamine 15 mg 08/17/24 09:52 08/17/24 09:58 Ketorolac 30mg/Ml Vial IV 08/17/24 09:53 15 mg ONCE ONE Administration Sodium Chloride 10 ml 08/17/24 09:00 08/17/24 09:01 Sodium Chloride 0.9% 10ml Syr (Rad Only) IV 08/17/24 09:01 10 ml ONCE ONE Administration ORDERS Category Date Time Status CT abdomen pelvis w con Stat Cat Scan 08/17/24 08:23 Completed Complete Blood Count Auto Diff Stat Lab 08/17/24 08:34 Completed Comprehensive Metabolic Panel Stat Lab 08/17/24 08:34 Completed HIV (1&2) Antibody Rapid Stat Lab 08/17/24 08:34 Received Hepatitis C Antibody Stat Lab 08/17/24 08:34 Received Lipase Stat Lab 08/17/24 08:34 Completed Medical Decision Narrative: In summary, this patient is a 43-year-old male presenting to the Emergency Department for evaluation of umbilical pain after feeling a pop yesterday while lifting something heavy. Differential diagnoses considered include but are not limited to umbilical hernia, incarcerated hernia, strangulated hernia, colitis, appendicitis. Ruling out the most morbid conditions drove assessment. It should be noted patient's history includes obesity and rheumatoid arthritis which are not at goal therapy. This complicates all aspects of care by increasing patient's risk for morbidity. On exam, the patient is lying in bed in no acute distress. He has abdominal tenderness, especially about the periumbilical region. Unable to definitively note hernia given body habitus limiting exam. Workup included CBC, CMP, lipase, and CT abdomen pelvis with IV contrast. He declines need for pain or nausea medication at this time. I independently interpreted CT scan prior to the radiologist read and noted fat-containing umbilical hernia. Please see their read for final interpretation. Labs were obtained that demonstrated mild leukocytosis, which is nonspecific. Chemistry is reassuring.. On reassessment, patient is resting comfortably in bed with reassuring vital signs on cardiac telemetry. Given he had some inflammatory changes with his fat-containing umbilical hernia and pain, he was given IV Toradol for symptomatic improvement. Ultimately, he is tolerating oral intake with no evidence of obstructive process so I feel that he is appropriate for discharge home with close follow-up with general surgery not emergently for management of his symptomatic hernia and strict return precautions. He was discharged after all questions were answered Critical Care Critical Care Time Critical Care Time: No
[2024-08-17 08:31] VITALS: BP 135/98; PULSE 71; O2SAT 96
[2024-08-17 08:44] LABS: Basophils # 0.1 K/mm3 (0-0.2); Basophils % 0.6 % (0.1-2.0); Eosinophils # 0.5 K/mm3 (0.0-0.4); Eosinophils % 3.3 % (0.1-12.0); Hematocrit 46.2 % (42.0-52.0); Hemoglobin 15.5 g/dL (14.1-18.0); Lymphocytes # 2.9 K/mm3 (0.7-4.5); Lymphocytes % 18.2 % (10-50); Mean Corpuscular HGB Conc 33.6 g/dL (31.8-35.4); Mean Corpuscular Hemoglobin 29.9 pg (27.0-31.2); Mean Platelet Volume 7.2 fl (7.4-10.4); Monocytes # 0.5 K/mm3 (0.1-1.0); Monocytes % 3.4 % (1.7-9.3); Neutrophils # 11.7 K/mm3 (1.8-7.8); Neutrophils % 74.5 % (37.0-80.0); Platelet Count 353 K/mm3 (142-424); Red Blood Count 5.19 M/mm3 (4.60-6.20); Red Cell Distribution Width 13.8 % (11.5-17.5); White Blood Count 15.7 K/mm3 (4.8-10.8)
[2024-08-17 08:53] LABS: MANUAL DIFFERENTIAL MANUAL DIFFERENTIAL (MANUAL DIFF)
[2024-08-17 08:54] LABS: Albumin Level 4.3 g/dl (3.5-5.0); Chloride 107 mmol/L (98-107); Sodium 138 mmol/L (136-145)
[2024-08-17 08:55] LABS: Potassium 4.3 mmoL/L (3.5-5.1)
[2024-08-17 08:57] LABS: Alanine Aminotransferase 27 U/L (12-78); Albumin/Globulin Ratio 1.3 (1.1-1.8); Alkaline Phosphatase 84 U/L (38-126); Anion Gap 12.3 mEq/L (5-15); Aspartate Amino Transferase 31 U/L (17-59); Bilirubin,Total 0.6 mg/dl (0.2-1.3); Blood Urea Nitrogen 12 mg/dl (9-20); Carbon Dioxide 23 mmol/L (22.0-30.0); Creatinine Clearance Estimated 155 mL/min (50-200); Estimated Glomerular Filt Rate 92 ml/min (>60); GFR (African American) 111 ML/MIN (>60); Globulin 3.3 g/dL (1.3-3.2); Lipase 51 U/L (23-300); Total Protein,Serum 7.6 g/dl (6.3-8.2)
[2024-08-17 08:58] LABS: Calcium 9.3 mg/dl (8.4-10.2); Glucose 99 mg/dl (74-100)
--- NOTE | 2024-08-17 08:58 | PC.NURSE ---
patient gone to CT at this time.
[2024-08-17] MEDS: SODIUM CHLORIDE 0.9% 10ML SYR (RAD ONLY) 10 ML IV (09:01)
[2024-08-17] MEDS: IOPAMIDOL-370 (76%);100ML BOTTLE 75 ML IV (09:01)
--- NOTE | 2024-08-17 09:05 | PC.NURSE ---
patient back in room at this time.
[2024-08-17 09:39] LABS: Eosinophils % 1 % (0-3); Lymphocytes % 31 % (10-50); Monocytes % 2 % (2-9); Neutrophils % 66 % (42-76); Platelet Estimate Normal; RBC Morphology Normal; Total Cells Counted 100
[2024-08-17] MEDS: KETOROLAC 30MG/ML VIAL 15 MG IV (09:58)
[2024-08-17 10:05] VITALS: BP 132/87; PULSE 74; RESP 18; TEMP 36.4; O2SAT 96
[2024-08-17 16:33] LABS: HIV (1&2) Antibody Rapid NONREACTIVE (NONREACTIVE)
== END 2024-08-17 10:05 | disposition home or self-care (01) ==
PROVIDERS: Emergency Provider Emergency Medicine; PCP Family Medicine
DX: K42.9 Umbilical hernia without obstruction or gangrene (principal); R10.33 Periumbilical pain
CPT/HCPCS: 74177; 80053; 83690; 85007; 85025; 85027; 87389; 96374; 99285; J1885; Q9967

== ENCOUNTER 2024-08-22 10:12 | Emergency (ER) | payer SELFPAY ==
[2024-08-22 11:30] VITALS: BP 141/89; PULSE 78; RESP 18; TEMP 36.6; O2SAT 98; BMI 43.8
--- NOTE | 2024-08-22 11:33 | ED_ITS ---
Discharge Plan Disposition Patient Disposition: Home, Self-Care Condition: Good Prescriptions Prescriptions: New promethazine 25 mg tablet 25 mg PO TID PRN (Reason: nausea and vomiting) Qty: 20 0RF No Action methocarbamol 500 mg tablet 500 mg PO TID Qty: 90 2RF pregabalin 100 mg capsule 100 mg PO TID Qty: 90 2RF oxycodone-acetaminophen [Percocet] 10-325 mg tablet 1 tab PO TID Qty: 90 0RF Referrals Follow up/Referrals: Nacho Bronson MD [Primary Care Provider] - See instructions Tyler Leo MD [Staff Physician] - See instructions Vinny Hu MD [Staff Physician] - See instructions Activity Restrictions/Add. Instructions Additional Instructions/Restrictions: Go home and rest. It would be best if you rested for the next few days. Avoid heavy lifting for the next few days. Take the promethazine for nausea if needed as directed. It will make you drowsy, so don't drive or operate heavy machinery after taking it. Follow up with your regular doctor. Follow up with General Surgery. I put in referrals to Dr. Hu and Dr. Leo. Please call their office and get a follow up appointment to be seen there. The next step in treating your hernia is to be seen by a surgeon. GO TO THE ER FOR ANY WORSENING SYMPTOMS OR CONCERN, ESPECIALLY BOWEL OR BLADDER ISSUES, SADDLE AREA NUMBNESS, FEVER, ETC Clinical Impressions Clinical Impression: Umbilical hernia, Abdominal pain Stand Alone Forms Stand Alone Forms: Work/School Release Instructions Patient Instructions: Hernias: Causes and Treatment Options Print Language Print Language: Japanese Discharge ED Provider: Len Burroughs [facility] General Stated complaint: WC 08/16/24, herniated belly button Time Seen by Provider: 08/22/24 11:33 History of Present Illness Provider Complaint: He states that he started having a bulging around his navel 1 week ago. He came to the ER when he first noted this. He was referred to surgery, but he has not followed up there yet. He came in here today because he needs a work excuse. He denies that his symptoms are worsening. He denies abdominal pain. He states that he is having regular bowel movements and passing gas normally. Related Data Previous Rx's ?Medication ?Instructions ?Recorded methocarbamol 500 mg tablet 500 mg PO TID #90 tabs 07/14/24 pregabalin 100 mg capsule 100 mg PO TID #90 caps 07/14/24 oxycodone-acetaminophen 10 mg-325 1 tab PO TID Pain #90 tabs 08/11/24 mg tablet (Percocet) promethazine 25 mg tablet 25 mg PO TID PRN nausea and 08/22/24 vomiting #20 tabs Allergies Allergy/AdvReac Type Severity Reaction Status Date / Time morphine [MORPHINE] Allergy Unknown Unknown Verified 08/17/24 09:02 allergy reaction bee venom protein (honey bee) Allergy Anaphylaxis Verified 08/17/24 09:02 [facility] Disclaimer: The information contained in this section may have been updated after the patient was seen, as this information can be updated by other users. Medical History Colonoscopy planned Implantable intrathecal infusion pump present Rheumatoid arthritis History of chest pain Surgical History [place] teeth extracted History of cholecystectomy Family History Family/Other Colon cancer Other Family history of diabetes mellitus type II Family history of hyperlipidemia Family history of hypertension Social History Smoking Status: Unknown if ever smoked second hand exposure: No alcohol intake: never substance use type: denies use current occupational status: employed and other Travel in the last 8 weeks: None household members: other housing: house lives independently: Yes marital status: education level: college service: No current occupational exposures/hazards: No caffeine: Yes special marilin needs: No agree to transfusion: No do you feel safe at home: Yes victim of physical abuse: No victim of emotional abuse: No victim of sexual abuse: No would you like helpful sources: No ROS Obtained: Yes All systems reviewed & no additional complaints except as documented Constitutional Constitutional: Denies chills and Denies fever(s) Eyes Eyes: Denies eye discharge ENT Ears, Nose, Mouth, and Throat: Denies dizziness, Denies otalgia and Denies sore throat Cardiovascular Cardiovascular: Denies chest pain Respiratory Respiratory: Denies shortness of breath, Denies chest congestion, Denies cough, Denies stridor and Denies wheezing Gastrointestinal Gastrointestingal: Denies nausea or vomiting Musculoskeletal Musculoskeletal: Reports system reviewed and no additional complaints, except as documented and Denies arthralgias Integumentary/Breasts Skin/Breast: Denies rash Neurologic Neurologic: Denies dizziness and Denies paresthesias Allergic/Immunologic Allergic/Immunologic: Denies wheezing Physical Exam General General appearance: alert and in no apparent distress Head Head exam: atraumatic, normocephalic and normal inspection Eye Eye exam: Present normal appearance, PERRL and EOMI ENT ENT exam: Present normal exam, normal oropharynx, mucous membranes moist, TM's normal bilaterally and normal external ear exam Neck Neck exam: Present normal inspection, full ROM and trachea midline; Absent meningismus or lymphadenopathy Chest Chest inspection: Present normal inspection and symmetric chest wall rise; Absent tenderness Respiratory Respiratory exam: Present normal lung sounds bilaterally; Absent respiratory distress Cardiovascular Cardiovascular exam: Present regular rate and normal rhythm; Absent JVD Abdominal Exam Abdominal exam: Present soft and normal bowel sounds; Absent distention, tenderness or guarding Extremities Exam Extremities exam: Present normal inspection, full ROM and normal capillary refill; Absent calf tenderness Back Exam Back exam: Present normal inspection; Absent tenderness Neurological Exam Neurological exam: Present alert and oriented X3 Psychiatric Psychiatric exam: Present normal affect and normal mood Skin Skin exam: Present warm, dry, intact and normal color Lymphatic Lymphatic Findings: no adenopathy Medical Decision Making Medical Records Medical records reviewed: No I reviewed the patient's medical records. Screening: Per USPSTF and CDC recommendations, given the prevalence of disease in our region, it is our hospital?s policy to screen for HIV and viral Hepatitis for all patients aged 18 and over and those with ongoing risk factors. Perry Inquiry Pt receiving controlled substance: No
[2024-08-22 11:54] VITALS: BP 141/89; PULSE 78; RESP 18; TEMP 36.6; O2SAT 98
== END 2024-08-22 11:56 | disposition home or self-care (01) ==
PROVIDERS: Emergency Provider Nurse Practitioner Family; PCP Family Medicine
DX: K42.9 Umbilical hernia without obstruction or gangrene (principal); R10.9 Unspecified abdominal pain
CPT/HCPCS: 99212; G0381

== ENCOUNTER 2024-09-12 13:26 | Outpatient (POV) | payer SELFPAY ==
--- NOTE | 2024-09-12 13:51 | EXP.PAIN.SOA ---
[facility] Disclaimer: The information contained in this section may have been updated after the patient was seen, as this information can be updated by other users. Medical History Colonoscopy planned Implantable intrathecal infusion pump present Rheumatoid arthritis History of chest pain Surgical History [place] teeth extracted History of cholecystectomy Family History Family/Other Colon cancer Other Family history of diabetes mellitus type II Family history of hyperlipidemia Family history of hypertension Social History Smoking Status: Unknown if ever smoked second hand exposure: No alcohol intake: never substance use type: denies use current occupational status: employed and other Travel in the last 8 weeks: None household members: other housing: house lives independently: Yes marital status: education level: college service: No current occupational exposures/hazards: No caffeine: Yes special marilin needs: No agree to transfusion: No do you feel safe at home: Yes victim of physical abuse: No victim of emotional abuse: No victim of sexual abuse: No would you like helpful sources: No PM Subjective & Objective Subjective Subjective:: Patient is a pleasant 43-year-old male who presents today for medication refill and follow-up. Today he rates his pain an 8 out of 10. Patient does state from our last visit he ended up having a injury while he was at work. Patient states he was just lifting a small object and had significant pain with increased pressure around his abdomen. Patient has since been diagnosed with an umbilical hernia. Patient is seeing Dr. Leo here at [facility] and was told that he needs surgery to repair this. Patient states he is still currently arguing with insurance for coverage. Patient is currently managed with Percocet 10 mg 3 times a day, pregabalin 100 mg 3 times a day and methocarbamol 500 mg 3 times a day. He denies any side effects from this medication. His Perry has been reviewed and is appropriate. Review of Systems: General: No recent weight changes, no fever, no sleep disturbances Respiratory: No cough, no shortness of air, no recurring pulmonary infections Cardiovascular/peripheral vascular: No chest pain, no palpitations, no edema, no shortness of breath Gastrointestinal: No new onset incontinence, normal bowel movements reported Genitourinary: No new onset incontinence Musculoskeletal: Low back pain, abdominal pain Psychiatric: [Normal mood/affect] Neurological: [Denies weakness in extremities], [denies balance issues] Pain at rest (0-10 scale): 8 Objective Objective:: Physical Exam: General: Alert and oriented x3, no acute distress, pleasant and cooperative Lungs: Respirations even and unlabored, symmetrical chest expansion Eyes: PERRL Musculoskeletal: Flexion and extension of lumbar [spine] somewhat guarded secondary to pain, [antalgic gait noted] Neurological: Speech clear, no gross sensory deficit Has patient had previous pain injection?: No Conservative treatment options previously tried: Home exercise plan Length of treatment: Longer than 12 weeks Meds Home Medications and Allergies Home Medications ?Medication ?Instructions ?Recorded ?Confirmed ?Type methocarbamol 500 mg tablet 500 mg PO TID #90 tabs 07/14/24 08/30/24 Rx pregabalin 100 mg capsule 100 mg PO TID #90 caps 07/14/24 08/30/24 Rx promethazine 25 mg tablet 25 mg PO TID PRN nausea and 08/22/24 08/30/24 Rx vomiting #20 tabs oxycodone-acetaminophen 10 mg-325 1 tab PO TID Pain #90 tabs 09/12/24 Rx mg tablet (Percocet) New Prescriptions to Start Prescriptions: oxycodone-acetaminophen [Percocet] Bux,Jose D Allergies Allergy/AdvReac Type Severity Reaction Status Date / Time morphine (MORPHINE) Allergy Unknown Unknown Verified 08/30/24 09:26 allergy reaction bee venom protein (honey bee) Allergy Anaphylaxis Verified 08/30/24 09:26 Assessment and Plan *Assessment and plan (1) Abdominal pain: Status: Acute Category: Medical Code(s): R10.9 - Unspecified abdominal pain (2) Umbilical hernia: Status: Acute Category: Medical Code(s): K42.9 - Umbilical hernia without obstruction or gangrene (3) Degenerative disc disease, lumbar: Status: Chronic Category: Medical Code(s): M51.36 - Other intervertebral disc degeneration, lumbar region Plan We will refill the patient's Percocet and provide a 1 month supply of this medication. Patient did have a 3-month supply of his pregabalin and methocarbamol and is good until next month on refills of those medications. Patient will return to clinic in 1 month for reevaluation of symptoms and plan of care. Risks and benefits of the medication have been explained in detail to the patient. The patient does understand the risk of dependence on the medication when given over a prolonged period. Patient has been advised of risks of oversedation with the prescribed medication. Narcan has been offered to the paitent in the event of oversedation. Patient has been advised that a family member should also be educated regarding administration of Narcan. The patient has been advised to consult with his/her primary care provider and pharmacist regarding drug-drug interaction of medications currently prescribed. Patient has been prescribed a controlled substance after being counseled on the medication, medication safety, and possible side effects. Opioid contract was reviewed and signed by the patient, and that they have agreed to all of the terms set forth by our compliance program. Patient has been instructed to contact the clinic with any concerns before the next appointment. Dr. Quinones has reviewed this note and agrees with this plan of care. This note was dictated using voice recognition software and make contain errors or omissions.
[2024-09-12 14:52] VITALS: BP 141/79; PULSE 80; RESP 20; O2SAT 97; BMI 47.5
== END 2024-09-12 23:59 | disposition home or self-care (01) ==
PROVIDERS: PCP Family Medicine; Visit Provider Nurse Practitioner Family
DX: R10.9 Unspecified abdominal pain (principal); K42.9 Umbilical hernia without obstruction or gangrene; M51.369 Other intervertebral disc degeneration, lumbar region without mention of lumbar back pain or lower extremity pain; Z97.8 Presence of other specified devices
CPT/HCPCS: 99212; G0463

== ENCOUNTER 2024-10-06 07:25 | Outpatient (CLI) | payer OTHER, SELFPAY ==
--- NOTE | 2024-10-06 07:47 | CA_ITS ---
APPROVED REPORT EXAM: Comprehensive 2D, Doppler, and color-flow Echocardiogram Concession Supervisor: Melissa Hatch RVT Ht: 6 ft 0 in Wt: 334lbs BSA: 2.65 BP: 124/83 mmHg Indications: PRE-OP.ABN EKG,KAUFMAN,SMOKER 2D Dimensions LA Volume 38.60 mL LA Volume Index 14.57 mL/m2 (M/F) 16-34 M-Mode Dimensions RVDd 3.19 cm (0.9-2.6) LA Diam 3.82 cm (1.9-4.0) LVDd 4.67 cm (3.5-5.7) LVDs 3.34 cm (3.5-5.7) IVSd 0.64 cm (0.6-1.1) PWd 0.88 cm (0.6-1.1) EF (Teich) 55.00% FS 28.50% EDV (Teich) 100.80 mL ESV (Teich) 45.40 mL LV Diastology E Decel Time 167 (160-240 msec) E/A Ratio 1.1 Aortic Valve IQRA Index 1.71 cm2/m2 AoV Peak Carlos. 90.0 (50-130 cm/s) AO Peak GR. 3.20 mmHg AO Mean GR. 2.20 (<5 mmHg) AO VTI 15.9 (18-25 cm) IQRA (VTI) 4.63 (2.5-4.5 cm2) Mitral Valve MV E Max Carlos. 55.0 (40-130 cm/s) MV A Velocity 50.0 (40-130 cm/s) E/A Ratio 1.09 MV PHT 49.0 ms Pulmonary Valve PV Peak Velocity 67.0 (50-150 cm/s) Left Ventricle The left ventricle is normal size. The left ventricular systolic function is normal. The left ventricular ejection fraction is within the normal range. There is normal left ventricular wall thickness. There is normal LV segmental wall motion. The left ventricular diastolic function is normal. LVEF is 55%. Right Ventricle The right ventricle is normal size. The right ventricular systolic function is normal. Atria The left atrium size is normal. The right atrium size is normal. There is no Doppler evidence of interatrial shunt. Aortic Valve The aortic valve opens well. There is no aortic valvular stenosis. No aortic regurgitation is present. Mitral Valve The mitral valve is normal in structure. No evidence of mitral valve stenosis. Trace mitral regurgitation. Tricuspid Valve Tricuspid valve is grossly normal in structure and function. Trace tricuspid regurgitation. There is insufficient TR jet to estimate RVSP. Pulmonic Valve The pulmonary valve is normal in structure. Trace pulmonic regurgitation. Great Vessels The aortic root is normal in size. The ascending aorta is normal in size. IVC is normal in size and collapses >50% with inspiration. Pericardium There is no pericardial effusion. Other Information Study Quality: Adequate Conclusion Normal biventricular systolic function. No significant valvular stenosis or regurgitation. Electronically signed by : Mihaela Ramirez MD 10/19/2024 12:27:35
[2024-10-06 08:51] LABS: Basophils # 0.1 K/mm3 (0-0.2); Eosinophils # 0.5 K/mm3 (0.0-0.4); Hematocrit 44.7 % (42.0-52.0); Hemoglobin 15.1 g/dL (14.1-18.0); Lymphocytes # 3.1 K/mm3 (0.7-4.5); Lymphocytes % 23.3 % (10-50); Mean Corpuscular HGB Conc 33.8 g/dL (31.8-35.4); Mean Corpuscular Hemoglobin 29.2 pg (27.0-31.2); Mean Corpuscular Volume 86.4 fl (80-94); Mean Platelet Volume 7.3 fl (7.4-10.4); Monocytes # 0.7 K/mm3 (0.1-1.0); Monocytes % 5.1 % (1.7-9.3); Neutrophils % 66.7 % (37.0-80.0); Platelet Count 307 K/mm3 (142-424); Red Blood Count 5.17 M/mm3 (4.60-6.20); Red Cell Distribution Width 14.1 % (11.5-17.5); White Blood Count 13.4 K/mm3 (4.8-10.8)
[2024-10-06 09:54] LABS: Alanine Aminotransferase 29 U/L (12-78); Albumin Level 3.9 g/dl (3.5-5.0); Alkaline Phosphatase 81 U/L (38-126); Anion Gap 11.4 mEq/L (5-15); Aspartate Amino Transferase 31 U/L (17-59); Bilirubin,Direct 0.4 mg/dl (0.0-0.4); Bilirubin,Indirect 0.1 mg/dL (0.0-0.9); Bilirubin,Total 0.5 mg/dl (0.2-1.3); Bilirubin,Unconjugated 0.1 mg/dL (0.0-1.1); Blood Urea Nitrogen 9 mg/dl (9-20); Calcium 9.1 mg/dl (8.4-10.2); Carbon Dioxide 21 mmol/L (22.0-30.0); Chloride 111 mmol/L (98-107); Chol/HDL Ratio 6.8 (1-3.5); Cholesterol 251 mg/dl (140-200); Estimated Glomerular Filt Rate 92 ml/min (>60); GFR (African American) 111 ML/MIN (>60); Glucose 95 mg/dl (74-100); HDL Cholesterol 37 mg/dl (40-60); Potassium 4.4 mmoL/L (3.5-5.1); Sodium 139 mmol/L (136-145); Total Protein,Serum 6.6 g/dl (6.3-8.2); Triglycerides 181 mg/dl (30-150); VLDL Cholesterol 36 mg/dL (0-40)
[2024-10-06 10:02] LABS: Hemoglobin A1C 5.4 % (4.0-6.0)
[2024-10-06 10:06] LABS: Direct LDL Cholesterol 190.87 mg/dL (100-129)
[2024-10-06 10:13] LABS: Free T4 (Free Thyroxine) 1.37 ng/dl (0.78-2.19)
[2024-10-06 10:25] LABS: Thyroid Stimulating Hormone 2.86 uIU/mL (0.465-4.68)
== END 2024-10-06 23:59 | disposition home or self-care (01) ==
LOC: RT 07:26
PROVIDERS: PCP Family Medicine; Visit Provider Nurse Practitioner
DX: Z01.810 Encounter for preprocedural cardiovascular examination (principal); R06.09 Other forms of dyspnea
CPT/HCPCS: 36415; 80048; 80061; 80076; 83036; 84439; 84443; 85025; 93306

== ENCOUNTER 2024-10-27 15:15 | Outpatient (POV) | payer OTHER, SELFPAY ==
[2024-10-27 16:21] VITALS: BP 129/92; PULSE 68; RESP 16; O2SAT 96; BMI 47.5
--- NOTE | 2024-10-27 16:22 | EXP.PAIN.SOA ---
[facility] Disclaimer: The information contained in this section may have been updated after the patient was seen, as this information can be updated by other users. Medical History Colonoscopy planned Implantable intrathecal infusion pump present Rheumatoid arthritis History of chest pain Surgical History [place] teeth extracted History of cholecystectomy Family History Family/Other Colon cancer Other Family history of diabetes mellitus type II Family history of hyperlipidemia Family history of hypertension Social History Smoking Status: Unknown if ever smoked second hand exposure: No alcohol intake: never substance use type: denies use current occupational status: employed Travel in the last 8 weeks: None household members: other housing: house lives independently: Yes marital status: education level: college service: No current occupational exposures/hazards: No caffeine: Yes special marilin needs: No agree to transfusion: No do you feel safe at home: Yes victim of physical abuse: No victim of emotional abuse: No victim of sexual abuse: No would you like helpful sources: No PM Subjective & Objective Subjective Subjective:: Patient is a pleasant 43-year-old male who presents today for medication refill and follow-up. Today he rates his pain a 9 out of 10. He denies any new trauma or injury. He does state overall he is still doing well with his medications. Patient is currently managed with Percocet 10 mg 3 times a day, pregabalin 100 mg 3 times a day and methocarbamol 500 mg 3 times a day. He denies any side effects from this medication. He does state that the pregabalin and methocarbamol he does not need refills but he takes these more as needed. His Perry has been reviewed and is appropriate. Review of Systems: General: No recent weight changes, no fever, no sleep disturbances Respiratory: No cough, no shortness of air, no recurring pulmonary infections Cardiovascular/peripheral vascular: No chest pain, no palpitations, no edema, no shortness of breath Gastrointestinal: No new onset incontinence, normal bowel movements reported Genitourinary: No new onset incontinence Musculoskeletal: Low back pain Psychiatric: [Normal mood/affect] Neurological: [Denies weakness in extremities], [denies balance issues] Pain at rest (0-10 scale): 9 Objective Objective:: Physical Exam: General: Alert and oriented x3, no acute distress, pleasant and cooperative Lungs: Respirations even and unlabored, symmetrical chest expansion Eyes: PERRL Musculoskeletal: Flexion and extension of lumbar [spine] somewhat guarded secondary to pain, [antalgic gait noted] Neurological: Speech clear, no gross sensory deficit Has patient had previous pain injection?: No Conservative treatment options previously tried: Prescription medications Length of treatment: Longer than 12 weeks Meds Home Medications and Allergies Home Medications ?Medication ?Instructions ?Recorded ?Confirmed ?Type methocarbamol 500 mg tablet 500 mg PO TID #90 tabs 07/14/24 09/27/24 Rx pregabalin 100 mg capsule 100 mg PO TID #90 caps 07/14/24 09/27/24 Rx oxycodone-acetaminophen 10 mg-325 1 tab PO TID Pain #90 tabs 09/12/24 09/27/24 Rx mg tablet (Percocet) oxycodone-acetaminophen 10 mg-325 1 tab PO TID #45 tabs 10/12/24 Rx mg tablet (Percocet) New Prescriptions to Start Prescriptions: Allergies Allergy/AdvReac Type Severity Reaction Status Date / Time morphine (MORPHINE) Allergy Unknown Unknown Verified 09/27/24 12:53 allergy reaction bee venom protein (honey bee) Allergy Anaphylaxis Verified 09/27/24 12:53 Assessment and Plan *Assessment and plan (1) Degenerative disc disease, lumbar: Status: Chronic Category: Medical Code(s): M51.369 - Other intervertebral disc degeneration, lumbar region without mention of lumbar back pain or lower extremity pain (2) Lumbar radiculopathy: Status: Chronic Category: Medical Code(s): M54.16 - Radiculopathy, lumbar region Plan We will refill the patient's Percocet and provide a 1 month supply of this medication. Patient will return to clinic in 1 month for reevaluation of symptoms and plan of care. Risks and benefits of the medication have been explained in detail to the patient. The patient does understand the risk of dependence on the medication when given over a prolonged period. Patient has been advised of risks of oversedation with the prescribed medication. Narcan has been offered to the paitent in the event of oversedation. Patient has been advised that a family member should also be educated regarding administration of Narcan. The patient has been advised to consult with his/her primary care provider and pharmacist regarding drug-drug interaction of medications currently prescribed. Patient has been prescribed a controlled substance after being counseled on the medication, medication safety, and possible side effects. Opioid contract was reviewed and signed by the patient, and that they have agreed to all of the terms set forth by our compliance program. A UDS is needed to verify patient's compliance with our office pain contract. This is ordered based off specific treatments related to chronic pain with the potential to abuse certain medications. Patient has been instructed to contact the clinic with any concerns before the next appointment. Dr. Quinones has reviewed this note and agrees with this plan of care. This note was dictated using voice recognition software and make contain errors or omissions.
== END 2024-10-27 23:59 | disposition home or self-care (01) ==
PROVIDERS: PCP Family Medicine; Visit Provider Nurse Practitioner Family
DX: M51.16 Intervertebral disc disorders with radiculopathy, lumbar region (principal)
CPT/HCPCS: 99212; G0463

== ENCOUNTER 2024-10-28 10:23 | Outpatient (CLI) | payer OTHER, SELFPAY ==
[2024-10-28 10:28] VITALS: BMI 44.7
[2024-10-28 10:56] LABS: Microscopic, Urine URINE MICROSCOPIC (MICROSCOPIC)
[2024-10-28 10:57] LABS: Basophils # 0.1 K/mm3 (0-0.2); Basophils % 0.7 % (0.1-2.0); Eosinophils # 0.5 K/mm3 (0.0-0.4); Eosinophils % 3.4 % (0.1-12.0); Hematocrit 45.2 % (42.0-52.0); Hemoglobin 15.1 g/dL (14.1-18.0); Lymphocytes % 29.7 % (10-50); Mean Corpuscular HGB Conc 33.4 g/dL (31.8-35.4); Mean Corpuscular Hemoglobin 28.3 pg (27.0-31.2); Mean Corpuscular Volume 84.8 fl (80-94); Mean Platelet Volume 10.2 fl (7.4-10.4); Monocytes # 0.9 K/mm3 (0.1-1.0); Monocytes % 6.7 % (1.7-9.3); Neutrophils # 8.1 K/mm3 (1.8-7.8); Neutrophils % 59.2 % (37.0-80.0); Platelet Count 230 K/mm3 (142-424); Red Blood Count 5.33 M/mm3 (4.60-6.20); Red Cell Distribution Width 13.8 % (11.5-17.5); White Blood Count 13.6 K/mm3 (4.8-10.8)
[2024-10-28 11:03] LABS: Appearance,Urine CLEAR (Clear); Blood, Urine Negative (Negative); Color,Urine YELLOW (Yellow); Glucose,Urine (UA) Negative (Negative); Ketones,Urine Negative (Negative); Leukocyte Esterase,Urine Negative (Negative); Nitrate,Urine Negative (Negative); Protein,Urine Negative (Negative); Urobilinogen,Urine 0.2 EU/dl (0.2)
[2024-10-28 11:10] LABS: Bilirubin,Urine 1+ (Negative)
[2024-10-28 11:14] LABS: WBC,Urine Occasional #/hpf (0-3)
== END 2024-10-28 23:59 | disposition home or self-care (01) ==
LOC: PREOP 10:24
PROVIDERS: PCP Family Medicine; Visit Provider Surgery
DX: Z01.812 Encounter for preprocedural laboratory examination (principal)
CPT/HCPCS: 81001; 85025

== ENCOUNTER 2024-11-15 06:04 | Day surgery (SDC) | payer OTHER, SELFPAY ==
--- NOTE | 2024-11-11 13:46 | SUR.PREOP ---
11/11/24 1346- spoke with patient regarding elevated white count. patient states this is due to stopping his RA medication. patient agrees to repeat CBC DOS. BJ notified and ordered placed for CBC.
[2024-11-15] VITALS (14 sets, daily range): BP systolic 119–143; BP diastolic 72–99; PULSE 71–85; RESP 14–18; TEMP 36.4–43; O2SAT 93–98; BMI 47.5
--- NOTE | 2024-11-15 06:34 | P.HP_ITS ---
HPI HPI HPI: Patient presents for hernia repair. He is a 44-year-old male with BMI of 48 who had presented to the emergency department on 08/17/2024 stating that he was lifting heavy and felt something pop near his umbilical area. Possible umbilical hernia was suspected but this was unclear on examination and he underwent CT scan which revealed fat-containing umbilical hernia with inflammatory change. He was seen back in the emergency department on 08/22/2024 for work excuse. Of note, patient did undergo laparoscopic cholecystectomy on 01/30/[address] Hu. He was seen in the office on 08/30/2024. At that time there is some fullness towards the upper aspect of his umbilicus. CT scan revealed about a 2 to 2-1/2 cm fat-containing umbilical hernia. I had him undergo cardiology risk assessment. He would like to consider repair. He states that the area causes some throbbing pain. Plan was to proceed with laparoscopically directed open repair with mesh placement. [facility] Disclaimer: The information contained in this section may have been updated after the patient was seen, as this information can be updated by other users. Medical History Colonoscopy planned Implantable intrathecal infusion pump present Rheumatoid arthritis History of chest pain Surgical History [place] teeth extracted History of cholecystectomy Family History Family/Other Colon cancer Other Family history of diabetes mellitus type II Family history of hyperlipidemia Family history of hypertension Social History (Updated 11/15/24 @ 06:26 by Flor Monahan RN) Smoking Status: Current every day smoker tobacco type: cigarettes packs per day: 1 second hand exposure: No alcohol intake: never substance use type: denies use current occupational status: employed Travel in the last 8 weeks: None household members: other housing: house lives independently: Yes marital status: education level: college service: No current occupational exposures/hazards: No caffeine: Yes special marilin needs: No agree to transfusion: No do you feel safe at home: Yes victim of physical abuse: No victim of emotional abuse: No victim of sexual abuse: No would you like helpful sources: No Have you lived/traveled outside US in past 30 days?: No Contact w/someone who lives/traveled outside US past 30 days?: No Exposure to someone with infectious disease in past 14 days?: No Do you have a fever (greater than 100.4 F or 38 C)?: No Have you tested positive for COVID-19: Yes Exposed to someone with COVID-19 in past 14 days?: No Do you have a sore throat?: No Do you have a cough?: No Do you have any weakness?: No Are you experiencing any nausea/vomitting?: No Do you have any diarrhea?: No Are you experiencing any unusual bleeding?: No Do you have any muscle aches/pain?: No Do you have any abdominal pain?: No Are you experiencing loss of taste or smell?: No Other Medical History Have you received the Flu Vaccine for this season: No Have you received the Pneumonia Vaccine: No Meds Home Medications and Allergies Home Medications ?Medication ?Instructions ?Recorded ?Confirmed ?Type methocarbamol 500 mg tablet 500 mg PO TID #90 tabs 07/14/24 11/15/24 Rx oxycodone-acetaminophen 10 mg-325 1 tab PO TID Pain #90 tabs 10/27/24 11/15/24 Rx mg tablet (Percocet) etanercept 50 mg/mL (1 mL) 50 mg SQ WEEKLY 11/15/24 11/15/24 History subcutaneous syringe (Enbrel) omeprazole 40 mg capsule,delayed 40 mg PO DAILY 11/15/24 11/15/24 History release pregabalin 100 mg capsule 100 mg PO TID PRN . 11/15/24 11/15/24 History New Prescriptions to Start Prescriptions: Allergies Allergy/AdvReac Type Severity Reaction Status Date / Time morphine (MORPHINE) Allergy Unknown Unknown Verified 11/15/24 06:21 allergy reaction bee venom protein (honey bee) Allergy Anaphylaxis Verified 11/15/24 06:21 Exam Data for Last 24 hours I & O for Last 24 hours: Intake & Output 11/12/24 11/13/24 11/14/24 11/15/24 11:59 11:59 11:59 11:59 Weight 350 lb *Routine HEENT Exam Head: Present normocephalic Eye: Absent conjunctival icterus ENT: Present mucous membranes moist *Routine Respiratory Exam Respiratory: Present CTA bilaterally *Routine Cardiovascular Exam Cardiovascular: Present Normal S1 and Normal S2 *Routine Abdominal Exam Abdominal: Present soft Comments: Tenderness towards supraumbilical area *Routine Rectal Exam Rectal:: deferred *Routine Genitalia Exam Genitalia:: deferred Assessment and Plan *Assessment and plan (1) Umbilical hernia: Status: Acute Category: Medical Code(s): K42.9 - Umbilical hernia without obstruction or gangrene Plan Patient wishes to pursue repair. I feel the best plan of action will be laparoscopically directed open repair. I explained to him the nature and details of the proposed procedure along with associated risks and expected outcome. He understands and agrees to proceed.
[2024-11-15] MEDS: LACTATED RINGERS 1000ML 1,000 ML 25 ML IV (06:39)
[2024-11-15] MEDS: CEFAZOLIN SODIUM 2 GM in 0.9 % SODIUM CHLORIDE 100 ML IV (07:04)
[2024-11-15] MEDS: LIDOCAINE 1% 20ML MDV 20 ML (07:35)
[2024-11-15] MEDS: ROPIVACAINE 0.5% 30ML VIAL 150 MG (07:36)
--- NOTE | 2024-11-15 09:14 | P.OP_ITS ---
Date of procedure: 11/15/24 Pre-op Diagnosis:: Umbilical hernia Post-op Diagnosis:: Incarcerated umbilical hernia Procedure performed:: Laparoscopic repair of chronically incarcerated umbilical hernia with placement of large Bard Ventralex mesh Surgeon:: Tyler Leo MD CLINICAL PROJECT MANAGER:: Len Wahl Anesthesia: FREDERIC Estimated blood loss (mL): 10 Clinical Note:: Patient presents for hernia repair. He is a 44-year-old male with BMI of 48 with history of rheumatoid arthritis who had presented to the emergency department on 08/17/2024 stating that he was lifting heavy and felt something pop near his umbilical area. Possible umbilical hernia was suspected but this was unclear on examination and he underwent CT scan which revealed fat- containing umbilical hernia with inflammatory change. He was seen back in the emergency department on 08/22/2024 for work excuse. Of note, patient did undergo laparoscopic cholecystectomy on 01/30/[address] uH. He was seen in the office on 08/30/2024. At that time there is some fullness towards the upper aspect of his umbilicus. CT scan revealed about a 2 to 2-1/2 cm fat-containing umbilical hernia. I had him undergo cardiology risk assessment. He would like to consider repair. He states that the area causes some throbbing pain. Plan was to proceed with laparoscopically directed open repair with mesh placement. Operative findings:: He had approximately 2 cm fascial defect with a moderate amount of herniated preperitoneal fat and omentum which was chronically incarcerated with some fat necrosis. Operative note:: Consent was obtained patient was taken the operating room. He was given preoperative intravenous antibiotics. In the operating room he was placed in a supine position. General anesthesia was induced via endotracheal tube. Abdomen was prepped and draped in the standard surgical fashion. Through left subcostal incision optical trocar was inserted under laparoscopic visualization into the peritoneal cavity. CO2 pneumoperitoneum was achieved to 15 mmHg. Laparoscopic surveillance was carried out. There was evidence of some herniated omentum. 5 mm trocar was inserted in the left lower abdomen. With retraction and abdominal pressure some of the chronically incarcerated omentum was able to be reduced. However after prolonged attempt at reduction of the hernia contents laparoscopically this was unsuccessful. At this time incision was made in the supraumbilical area overlying the palpable hernia sac. Dissection was carried down through subcutaneous tissues to the hernia sac. The hernia sac was dissected free from the surrounding subcutaneous tissue down to fascia. Hernia sac was incised. There was evidence of fat necrosis from herniated omentum secondary to chronically incarcerated omentum within the hernia sac. The omentum and peritoneum of the hernia sac was excised using electrocautery. It was sent off as specimen labeled hernia sac and contents. At this time atten tion was turned to laparoscopic dissection once again. The fascial defect was temporarily closed initially with 0 Ethibond and then with towel clips. The extraneous fatty tissue around the fascial defect posteriorly was dissected free to allow for mesh placement using KRYSTIAN ultrasonic harmonic angelina. 0 fascial stay sutures were then placed within the defect. 12 mm Robertson blunt trocar was then inserted through the hernia defect. The preperitoneal herniated tissue which had been dissected free was placed within an Endo Catch retrieval device and removed from the peritoneal cavity via the umbilical trocar site. A large sized Bard Ventralex mesh measuring 8.0 cm circumferential diameter was then inserted through the 12 mm trocar. Trocar was then removed and the tails of the mesh were elevated. They were sutured superiorly and inferiorly to the fascial edges using 2-0 PDS sutures. Tails of the mesh were then cut flush with the fascia. Skin at the umbilical incision was temporarily closed with a 2-0 running locking nylon suture and pneumoperitoneum was reestablished. Repair appeared adequate with good coverage of the defect with the mesh. For assurance of the mesh was secured with several OPTi fix absorbent tack anchors. There was good hemostasis. Pneumoperitoneum was evacuated once again and trocars were removed. Fascial defect was closed over the mesh with interrupted 0 Ethibond. Local anesthetic was infiltrated. Subdermal tissues of the umbilical was closed with interrupted 2-0 Vicryl. Skin incision was closed with 4-0 Monocryl in a subcuticular fashion. Steri-Strips and dressings were applied. Condition: stable Disposition: PACU Complications:: None immediately apparent
[2024-11-15] MEDS: HYDROMORPHONE 2MG/ML SYRINGE 0.5 MG IV ×8 (09:26→10:06)
--- NOTE | 2024-11-15 09:27 | P.PNANES_ITS ---
[facility] Disclaimer: The information contained in this section may have been updated after the patient was seen, as this information can be updated by other users. Medical History Colonoscopy planned Implantable intrathecal infusion pump present Rheumatoid arthritis History of chest pain Surgical History [place] teeth extracted History of cholecystectomy Family History Family/Other Colon cancer Other Family history of diabetes mellitus type II Family history of hyperlipidemia Family history of hypertension Social History (Updated 11/15/24 @ 06:26 by Flor Monahan RN) Smoking Status: Current every day smoker tobacco type: cigarettes packs per day: 1 second hand exposure: No alcohol intake: never substance use type: denies use current occupational status: employed Travel in the last 8 weeks: None household members: other housing: house lives independently: Yes marital status: education level: college service: No current occupational exposures/hazards: No caffeine: Yes special marilin needs: No agree to transfusion: No do you feel safe at home: Yes victim of physical abuse: No victim of emotional abuse: No victim of sexual abuse: No would you like helpful sources: No Have you lived/traveled outside US in past 30 days?: No Contact w/someone who lives/traveled outside US past 30 days?: No Exposure to someone with infectious disease in past 14 days?: No Do you have a fever (greater than 100.4 F or 38 C)?: No Have you tested positive for COVID-19: Yes Exposed to someone with COVID-19 in past 14 days?: No Do you have a sore throat?: No Do you have a cough?: No Do you have any weakness?: No Are you experiencing any nausea/vomitting?: No Do you have any diarrhea?: No Are you experiencing any unusual bleeding?: No Do you have any muscle aches/pain?: No Do you have any abdominal pain?: No Are you experiencing loss of taste or smell?: No [facility] Anesthesia Checklist Patient Identification Patient Identification: Arm Band and Family Structural Data Admitted From: Home Planned Operative Procedure/s: Lap Umbilical hernia repair Consent for Planned Operative Procedure(s) Verified: Yes Verified Documents: Surgical Consent and History and Physical NPO Status Verified Time NPO: 02:00 Additional verifications Patient : No Anesthesia Reactions: No Hx Blood Transfusions: No Blood Transfusion Reaction: No Cephalosporin Allergy: No Previous Colonoscopy: No Airway Assessment Mallampati Score:: Class III C-Spine Mobility Assessed: Yes TMJ Mobility Assessed: Yes Dentition: Good Dentition Neurological Assessment Level of Consciousness: Awake, Alert, Appropriate and Follows Commands Hx Seizures: No Numbness or tingling in extremities: No Anesthesia Plan Anesthesia Risk discussed: Yes ASA Class: III Anesthesia Type: General Preoperative Comments Pre-Operative Comments: 351 pounds.
--- NOTE | 2024-11-15 09:29 | EXP.ANES.I ---
[facility] Anesthesia Record Part I Anesthesia Record I Intake, IV Amount: 1,000 Hydration: Adequate Estimated blood loss (mL): 10 Urine output (mL): 0 Blood Products used (#): none Blood Pressure: 143/96 SaO2: 93 Pulse Rate: 82 Airway Patency: Patent Respiratory Rate: 14 Temperature: 97.6 F Patient is:: Drowsy and Stable Stable to PACU at:: 09:16
[2024-11-15] MEDS: KETOROLAC 30MG/ML VIAL 30 MG IV (10:00)
[2024-11-15] MEDS: MEPERIDINE 25MG/ML 1ML SYRINGE 12.5 MG IV (10:10)
--- NOTE | 2024-11-15 10:39 | P.PNANES_ITS ---
[facility] Anesthesia Record Part II Anesthesia Record Part II Discharge Time: 10:16 Destination: Surgical Day Care (OP Surgery) PACU nurse assessment reviewed?: Yes Patient Condition:: Good Anesthesia Complications:: None Swallowing reflex intact?: Yes Airway Patency: Patent Cyanosis?: No Blood Pressure: 129/76 SaO2: 95 Respiratory Rate: 18 Pulse Rate: 71 Temperature: 97.5 F Mental Status: Alert & Oriented Pain level:: 2 Nausea and/or vomitting:: None Intake, IV Amount: 0 Hydration: Adequate
== END 2024-11-15 10:54 | disposition home or self-care (01) ==
PROVIDERS: PCP Family Medicine; Visit Provider Surgery
PROC: (CPT 49592; principal; 2024-11-15 07:30)
DX: K42.0 Umbilical hernia with obstruction, without gangrene (principal)
CPT/HCPCS: 49592; 88302; 88341; 88342; 96374; J3490; C1781; J0690; J1100; J1171; J1885; J2175; J2250; J2405; J3010; J7120

== ENCOUNTER 2024-11-28 15:00 | Outpatient (POV) | payer OTHER, SELFPAY ==
--- NOTE | 2024-11-28 15:16 | EXP.PAIN.SOA ---
[facility] Disclaimer: The information contained in this section may have been updated after the patient was seen, as this information can be updated by other users. Medical History Colonoscopy planned Implantable intrathecal infusion pump present Rheumatoid arthritis History of chest pain Surgical History [place] teeth extracted History of cholecystectomy Family History Family/Other Colon cancer Other Family history of diabetes mellitus type II Family history of hyperlipidemia Family history of hypertension Social History Smoking Status: Current every day smoker tobacco type: cigarettes packs per day: 1 second hand exposure: No alcohol intake: never substance use type: denies use current occupational status: employed Travel in the last 8 weeks: None household members: other housing: house lives independently: Yes marital status: education level: college service: No current occupational exposures/hazards: No caffeine: Yes special marilin needs: No agree to transfusion: No do you feel safe at home: Yes victim of physical abuse: No victim of emotional abuse: No victim of sexual abuse: No would you like helpful sources: No PM Subjective & Objective Subjective Subjective:: Patient is a pleasant 44-year-old male who presents today for medication refill and follow-up. Today he rates his pain an 8 out of 10. He denies any new trauma or injury. He does state from our last appointment he did end up having to have hernia surgery as it was getting worse and he woke up and states that it had burst. He states he is still healing from all of that. He does state that he feels like the medication just is not working as well and wanted to see about possibly getting an increase. Patient is currently managed with Percocet 10 mg 3 times a day, pregabalin 100 mg 3 times a day and methocarbamol 500 mg 3 times a day. He denies any side effects. Patient does also have a nonfunctioning intrathecal pain pump in place. His [place] has been reviewed and is appropriate. Review of Systems: General: No recent weight changes, no fever, no sleep disturbances Respiratory: No cough, no shortness of air, no recurring pulmonary infections Cardiovascular/peripheral vascular: No chest pain, no palpitations, no edema, no shortness of breath Gastrointestinal: No new onset incontinence, normal bowel movements reported Genitourinary: No new onset incontinence Musculoskeletal: Low back pain Psychiatric: [Normal mood/affect] Neurological: [Denies weakness in extremities], [denies balance issues] Pain at rest (0-10 scale): 8 Objective Objective:: Physical Exam: General: Alert and oriented x3, no acute distress, pleasant and cooperative Lungs: Respirations even and unlabored, symmetrical chest expansion Eyes: PERRL Musculoskeletal: Flexion and extension of lumbar [spine] somewhat guarded secondary to pain, [antalgic gait noted] Neurological: Speech clear, no gross sensory deficit Has patient had previous pain injection?: No Conservative treatment options previously tried: Prescription medications Length of treatment: Longer than 12 weeks Meds Home Medications and Allergies Home Medications ?Medication ?Instructions ?Recorded ?Confirmed ?Type methocarbamol 500 mg tablet 500 mg PO TID #90 tabs 07/14/24 11/28/24 Rx oxycodone-acetaminophen 10 mg-325 1 tab PO TID Pain #90 tabs 10/27/24 11/28/24 Rx mg tablet (Percocet) etanercept 50 mg/mL (1 mL) 50 mg SQ WEEKLY 11/15/24 11/28/24 History subcutaneous syringe (Enbrel) omeprazole 40 mg capsule,delayed 40 mg PO DAILY 11/15/24 11/28/24 History release pregabalin 100 mg capsule 100 mg PO TID PRN . 11/15/24 11/28/24 History New Prescriptions to Start Prescriptions: Allergies Allergy/AdvReac Type Severity Reaction Status Date / Time morphine (MORPHINE) Allergy Unknown Unknown Verified 11/15/24 06:21 allergy reaction bee venom protein (honey bee) Allergy Anaphylaxis Verified 11/15/24 06:21 Assessment and Plan *Assessment and plan (1) Lumbar radiculopathy: Status: Chronic Category: Medical Code(s): M54.16 - Radiculopathy, lumbar region (2) Degenerative disc disease, lumbar: Status: Chronic Category: Medical Code(s): M51.369 - Other intervertebral disc degeneration, lumbar region without mention of lumbar back pain or lower extremity pain (3) Thoracic back pain: Status: Acute Qualifiers: Back pain laterality: midline Chronicity: chronic Qualified Code(s): M54.6 - Pain in thoracic spine; G89.29 - Other chronic pain Category: Medical Code(s): M54.6 - Pain in thoracic spine Plan I did review over with the patient that there is always the option of replacing his nonfunctioning intrathecal pump. Patient does state at this time he wants to wait where he did just get over having to have surgery. I will make changes to his current Percocet and change it to 4 times per day and also send in refills on his pregabalin and methocarbamol. Patient will return to clinic in 1 month for reevaluation of symptoms and plan of care. Risks and benefits of the medication have been explained in detail to the patient. The patient does understand the risk of dependence on the medication when given over a prolonged period. Patient has been advised of risks of oversedation with the prescribed medication. Narcan has been offered to the paitent in the event of oversedation. Patient has been advised that a family member should also be educated regarding administration of Narcan. The patient has been advised to consult with his/her primary care provider and pharmacist regarding drug-drug interaction of medications currently prescribed. Patient has been prescribed a controlled substance after being counseled on the medication, medication safety, and possible side effects. Opioid contract was reviewed and signed by the patient, and that they have agreed to all of the terms set forth by our compliance program. A UDS is needed to verify patient's compliance with our office pain contract. This is ordered based off specific treatments related to chronic pain with the potential to abuse certain medications. Patient has been instructed to contact the clinic with any concerns before the next appointment. Dr. Quinones has reviewed this note and agrees with this plan of care. This note was dictated using voice recognition software and make contain errors or omissions.
[2024-11-28 15:23] VITALS: BP 148/87; PULSE 82; RESP 14; O2SAT 98; BMI 47.7
== END 2024-11-28 23:59 | disposition home or self-care (01) ==
PROVIDERS: PCP Family Medicine; Visit Provider Nurse Practitioner Family
DX: M51.16 Intervertebral disc disorders with radiculopathy, lumbar region (principal); G89.29 Other chronic pain; F17.210 Nicotine dependence, cigarettes, uncomplicated
CPT/HCPCS: 99212; G0463

== ENCOUNTER 2024-12-15 10:38 | Outpatient (CLI) | payer OTHER, SELFPAY ==
--- NOTE | 2024-12-15 10:43 | CT_ITS ---
FINAL REPORT TECHNIQUE: Thin section axial images were obtained through the abdomen after intravenous contrast. Reconstruction images were obtained from the axial data. Exam was performed using dose reduction techniques. CLINICAL HISTORY: pain, HX OF HERNIA SURGERY X 1 MONTH AGO, INCISION OPENED AND DRAINING COMPARISON: 12/28/2024 FINDINGS: The lung bases are clear. There is fatty infiltration of the liver. The gallbladder is absent. The spleen, adrenal glands, and pancreas are unremarkable. There is no hydronephrosis or solid renal mass. Abdominal GI tract is without acute abnormality. There is no abdominal lymphadenopathy or ascites. There has been a prior umbilical hernia repair. Mesh is seen along the anterior abdominal wall. There is abnormal attenuation within the umbilicus. There is no fluid density or fluid collection. The pelvic solid organs are unremarkable. The pelvic portions of the GI tract, including the appendix, are without acute abnormality. There is no pelvic lymphadenopathy or ascites. No acute osseous abnormalities identified. IMPRESSION: Postoperative changes from umbilical hernia repair. Abnormal attenuation within the umbilicus, favor inflammatory or infectious. No fluid collection seen to suggest an abscess. Reviewed, Interpreted and Dictated by Shantelle Morales MD Transcribed by Cate Murphy Authenticated and [facility]
[2024-12-15] MEDS: IOPAMIDOL-370 (76%);100ML BOTTLE 75 ML IV (11:07)
[2024-12-15] MEDS: SODIUM CHLORIDE 0.9% 10ML SYR (RAD ONLY) 10 ML IV (11:07)
== END 2024-12-15 23:59 | disposition home or self-care (01) ==
LOC: RAD 10:39
PROVIDERS: PCP Family Medicine; Visit Provider Surgery
DX: K42.9 Umbilical hernia without obstruction or gangrene (principal)
CPT/HCPCS: 74177; Q9967

== ENCOUNTER 2024-12-26 13:14 | Outpatient (POV) | payer OTHER, SELFPAY ==
--- NOTE | 2024-12-26 13:25 | EXP.PAIN.SOA ---
[facility] Disclaimer: The information contained in this section may have been updated after the patient was seen, as this information can be updated by other users. Medical History Colonoscopy planned Implantable intrathecal infusion pump present Rheumatoid arthritis History of chest pain Surgical History History of hernia repair [place] teeth extracted History of cholecystectomy Family History Family/Other Colon cancer Other Family history of diabetes mellitus type II Family history of hyperlipidemia Family history of hypertension Social History Smoking Status: Current every day smoker tobacco type: cigarettes packs per day: 1 second hand exposure: No alcohol intake: never substance use type: denies use current occupational status: other Travel in the last 8 weeks: None household members: other housing: house lives independently: Yes marital status: education level: college service: No current occupational exposures/hazards: No caffeine: Yes special marilin needs: No agree to transfusion: No do you feel safe at home: Yes victim of physical abuse: No victim of emotional abuse: No victim of sexual abuse: No would you like helpful sources: No PM Subjective & Objective Subjective Subjective:: Patient is a pleasant 44-year-old male who presents tonight for medication refill and follow-up. Today he rates his pain a 8 out of 10. He denies any new injuries or falls. He is still healing from his hernia surgery and anticipates going back to work on the . He does state that he has had trouble with recovery and that it is just now more scabbed over. Patient states that he has had to hold off all his rheumatoid arthritis medications until its fully healed. Patient is asking if there is any way that we can refill his omeprazole that he is out of this medication and has been unavailable to go to his primary care to have it refilled at this time. He is currently managed with Percocet 10 mg 3 times a day, pregabalin 100 mg 3 times a day and methocarbamol 500 mg 3 times an day. He denies any side effects. His Perry has been reviewed and is appropriate. Review of Systems: General: No recent weight changes, no fever, no sleep disturbances Respiratory: No cough, no shortness of air, no recurring pulmonary infections Cardiovascular/peripheral vascular: No chest pain, no palpitations, no edema, no shortness of breath Gastrointestinal: No new onset incontinence, normal bowel movements reported Genitourinary: No new onset incontinence Musculoskeletal: Low back pain Psychiatric: [Normal mood/affect] Neurological: [Denies weakness in extremities], [denies balance issues] Pain at rest (0-10 scale): 8 Objective Objective:: Physical Exam: General: Alert and oriented x3, no acute distress, pleasant and cooperative Lungs: Respirations even and unlabored, symmetrical chest expansion Eyes: PERRL Musculoskeletal: Flexion and extension of lumbar [spine] somewhat guarded secondary to pain, [antalgic gait noted] Neurological: Speech clear, no gross sensory deficit Has patient had previous pain injection?: No Conservative treatment options previously tried: Prescription medications Length of treatment: Longer than 12 weeks Meds Home Medications and Allergies Home Medications ?Medication ?Instructions ?Recorded ?Confirmed ?Type etanercept 50 mg/mL (1 mL) 50 mg SQ WEEKLY 11/15/24 12/20/24 History subcutaneous syringe (Enbrel) omeprazole 40 mg capsule,delayed 40 mg PO DAILY 11/15/24 12/20/24 History release methocarbamol 500 mg tablet 500 mg PO TID #90 tabs 11/28/24 12/20/24 Rx pregabalin 100 mg capsule 100 mg PO TID PRN . #90 caps 11/28/24 12/20/24 Rx New Prescriptions to Start Prescriptions: Allergies Allergy/AdvReac Type Severity Reaction Status Date / Time morphine (MORPHINE) Allergy Unknown Unknown Verified 12/20/24 09:10 allergy reaction bee venom protein (honey bee) Allergy Anaphylaxis Verified 12/20/24 09:10 Assessment and Plan *Assessment and plan (1) Degenerative disc disease, lumbar: Status: Chronic Category: Medical Code(s): M51.369 - Other intervertebral disc degeneration, lumbar region without mention of lumbar back pain or lower extremity pain (2) Lumbar radiculopathy: Status: Chronic Category: Medical Code(s): M54.16 - Radiculopathy, lumbar region Plan I will refill the patient's Percocet, methocarbamol and pregabalin to 1 month supply of these medications. I will do a one-time refill on his omeprazole and provide a 3-month supply of this medication. Patient will return to clinic in 1 month. Risks and benefits of the medication have been explained in detail to the patient. The patient does understand the risk of dependence on the medication when given over a prolonged period. Patient has been advised of risks of oversedation with the prescribed medication. Narcan has been offered to the paitent in the event of oversedation. Patient has been advised that a family member should also be educated regarding administration of Narcan. The patient has been advised to consult with his/her primary care provider and pharmacist regarding drug-drug interaction of medications currently prescribed. Patient has been prescribed a controlled substance after being counseled on the medication, medication safety, and possible side effects. Opioid contract was reviewed and signed by the patient, and that they have agreed to all of the terms set forth by our compliance program. A UDS is needed to verify patient's compliance with our office pain contract. This is ordered based off specific treatments related to chronic pain with the potential to abuse certain medications. Patient has been instructed to contact the clinic with any concerns before the next appointment. Dr. Quinones has reviewed this note and agrees with this plan of care. This note was dictated using voice recognition software and make contain errors or omissions.
[2024-12-26 14:03] VITALS: BP 132/91; PULSE 70; RESP 18; O2SAT 97; BMI 47.5
== END 2024-12-26 23:59 | disposition home or self-care (01) ==
PROVIDERS: PCP Family Medicine; Visit Provider Nurse Practitioner Family
DX: M51.16 Intervertebral disc disorders with radiculopathy, lumbar region (principal); F17.210 Nicotine dependence, cigarettes, uncomplicated
CPT/HCPCS: 99212; G0463

== ENCOUNTER 2025-01-26 14:53 | Outpatient (POV) | payer OTHER, SELFPAY ==
[2025-01-26 15:24] VITALS: PULSE 70; RESP 14; O2SAT 97; BMI 47.8
--- NOTE | 2025-01-26 15:34 | EXP.PAIN.SOA ---
[facility] Disclaimer: The information contained in this section may have been updated after the patient was seen, as this information can be updated by other users. Medical History Colonoscopy planned Implantable intrathecal infusion pump present Rheumatoid arthritis History of chest pain Surgical History History of hernia repair [place] teeth extracted History of cholecystectomy Family History Family/Other Colon cancer Other Family history of diabetes mellitus type II Family history of hyperlipidemia Family history of hypertension Social History Smoking Status: Current every day smoker tobacco type: cigarettes packs per day: 1 second hand exposure: No alcohol intake: never substance use type: denies use current occupational status: employed Travel in the last 8 weeks: None household members: other housing: house lives independently: Yes marital status: education level: college service: No current occupational exposures/hazards: No caffeine: Yes special marilin needs: No agree to transfusion: No do you feel safe at home: Yes victim of physical abuse: No victim of emotional abuse: No victim of sexual abuse: No would you like helpful sources: No PM Subjective & Objective Subjective Subjective:: Patient is a pleasant 44-year-old male who presents today for medication refill and follow-up. He rates his pain today an 8 out of 10. He denies any new trauma or injury. He is currently managed with Percocet 10 mg 3 times a day, pregabalin 100 mg 3 times a day and methocarbamol 500 mg 3 times a day from our office. He denies any side effects from this medication. He denies any side effects. Patient was recently prescribed omeprazole and due to not being able to get in to his provider soon as before his medication ran out. His Perry has been reviewed and is appropriate. Review of Systems: General: No recent weight changes, no fever, no sleep disturbances Respiratory: No cough, no shortness of air, no recurring pulmonary infections Cardiovascular/peripheral vascular: No chest pain, no palpitations, no edema, no shortness of breath Gastrointestinal: No new onset incontinence, normal bowel movements reported Genitourinary: No new onset incontinence Musculoskeletal: Chronic low back pain Psychiatric: [Normal mood/affect] Neurological: [Denies weakness in extremities], [denies balance issues] Pain at rest (0-10 scale): 8 Objective Objective:: Physical Exam: General: Alert and oriented x3, no acute distress, pleasant and cooperative Lungs: Respirations even and unlabored, symmetrical chest expansion Eyes: PERRL Musculoskeletal: Flexion and extension of lumbar [spine] somewhat guarded secondary to pain, [antalgic gait noted] Neurological: Speech clear, no gross sensory deficit Has patient had previous pain injection?: No Conservative treatment options previously tried: Prescription medications Length of treatment: Longer than 12 Meds Home Medications and Allergies Home Medications ?Medication ?Instructions ?Recorded ?Confirmed ?Type etanercept 50 mg/mL (1 mL) 50 mg SQ WEEKLY 11/15/24 01/26/25 History subcutaneous syringe (Enbrel) methocarbamol 500 mg tablet 500 mg PO TID #90 tabs 11/28/24 01/26/25 Rx pregabalin 100 mg capsule 100 mg PO TID PRN . #90 caps 11/28/24 01/26/25 Rx omeprazole 40 mg capsule,delayed 40 mg PO DAILY #30 caps 12/26/24 01/26/25 Rx release oxycodone-acetaminophen 10 mg-325 1 tab PO QID #120 tabs 12/26/24 01/26/25 Rx mg tablet (Percocet) New Prescriptions to Start Prescriptions: Allergies Allergy/AdvReac Type Severity Reaction Status Date / Time morphine (MORPHINE) Allergy Unknown Unknown Verified 12/20/24 09:10 allergy reaction bee venom protein (honey bee) Allergy Anaphylaxis Verified 12/20/24 09:10 Assessment and Plan *Assessment and plan (1) Lumbar radiculopathy: Status: Chronic Category: Medical Code(s): M54.16 - Radiculopathy, lumbar region (2) Degenerative disc disease, lumbar: Status: Chronic Category: Medical Code(s): M51.369 - Other intervertebral disc degeneration, lumbar region without mention of lumbar back pain or lower extremity pain Plan Patient will be refilled on his Percocet as well as make sure that he does have refills on his pregabalin and methocarbamol. Patient will return to clinic in 1 month. Risks and benefits of the medication have been explained in detail to the patient. The patient does understand the risk of dependence on the medication when given over a prolonged period. Patient has been advised of risks of oversedation with the prescribed medication. Narcan has been offered to the paitent in the event of oversedation. Patient has been advised that a family member should also be educated regarding administration of Narcan. The patient has been advised to consult with his/her primary care provider and pharmacist regarding drug-drug interaction of medications currently prescribed. Patient has been prescribed a controlled substance after being counseled on the medication, medication safety, and possible side effects. Opioid contract was reviewed and signed by the patient, and that they have agreed to all of the terms set forth by our compliance program. A UDS is needed to verify patient's compliance with our office pain contract. This is ordered based off specific treatments related to chronic pain with the potential to abuse certain medications. Patient has been instructed to contact the clinic with any concerns before the next appointment. Dr. Quinones has reviewed this note and agrees with this plan of care. This note was dictated using voice recognition software and make contain errors or omissions.
== END 2025-01-26 23:59 | disposition home or self-care (01) ==
PROVIDERS: PCP Family Medicine; Visit Provider Nurse Practitioner Family
DX: M51.16 Intervertebral disc disorders with radiculopathy, lumbar region (principal); F17.210 Nicotine dependence, cigarettes, uncomplicated
CPT/HCPCS: 99212; G0463

== ENCOUNTER 2025-02-23 14:41 | Outpatient (POV) | payer OTHER, SELFPAY ==
--- NOTE | 2025-02-23 15:36 | A.OFFVIS_ITS ---
[facility] Disclaimer: The information contained in this section may have been updated after the patient was seen, as this information can be updated by other users. Medical History Colonoscopy planned Implantable intrathecal infusion pump present Rheumatoid arthritis History of chest pain Surgical History History of hernia repair [place] teeth extracted History of cholecystectomy Family History Family/Other Colon cancer Other Family history of diabetes mellitus type II Family history of hyperlipidemia Family history of hypertension Social History Smoking Status: Current every day smoker tobacco type: cigarettes packs per day: 1 second hand exposure: No alcohol intake: never substance use type: denies use current occupational status: other Travel in the last 8 weeks?: None household members: other housing: house lives independently: Yes marital status: education level: college service: No current occupational exposures/hazards: No caffeine: Yes special marilin needs: No agree to transfusion: No do you feel safe at home: Yes victim of physical abuse: No victim of emotional abuse: No victim of sexual abuse: No would you like helpful sources: No PM Subjective & Objective Subjective Subjective:: Patient is a pleasant 44-year-old male who presents today for 1 month follow-up and medication refill. Today he rates his pain a 8 out of 10. Patient does state that he has been experiencing a lot more swelling into his bilateral knees. He denies any new falls or injuries. He states that he is just constantly having worsening pain due to his back and now his knees. Patient does present today with disability/time off paperwork. Patient does also state that he is still having issues getting his prescriptions filled at his current pharmacy and that he would like to try here at clinic. Patient is requesting if we can do a fluid pill temporarily for him and if we can send a refill of his omeprazole to clinic as well. His Perry has been reviewed and is appropriate. Review of Systems: General: No recent weight changes, no fever, no sleep disturbances Respiratory: No cough, no shortness of air, no recurring pulmonary infections Cardiovascular/peripheral vascular: No chest pain, no palpitations, no edema, no shortness of breath Gastrointestinal: No new onset incontinence, normal bowel movements reported Genitourinary: No new onset incontinence Musculoskeletal: Low back pain, bilateral knee pain/swelling Psychiatric: [Normal mood/affect] Neurological: [Denies weakness in extremities], [denies balance issues] Pain at rest (0-10 scale): 8 Objective Objective:: Physical Exam: General: Alert and oriented x3, no acute distress, pleasant and cooperative Lungs: Respirations even and unlabored, symmetrical chest expansion Eyes: PERRL Musculoskeletal: Flexion and extension of lumbar [spine] somewhat guarded secondary to pain, [antalgic gait noted] Neurological: Speech clear, no gross sensory deficit Has patient had previous pain injection?: No Conservative treatment options previously tried: Prescription medications Length of treatment: Longer than 12 weeks Meds Home Medications and Allergies Home Medications ?Medication ?Instructions ?Recorded ?Confirmed ?Type etanercept 50 mg/mL (1 mL) 50 mg SQ WEEKLY 11/15/24 01/26/25 History subcutaneous syringe (Enbrel) methocarbamol 500 mg tablet 500 mg PO TID #90 tabs 11/28/24 01/26/25 Rx pregabalin 100 mg capsule 100 mg PO TID PRN . #90 caps 11/28/24 01/26/25 Rx furosemide 40 mg tablet 40 mg PO DAILY #30 tabs 02/23/25 Rx omeprazole 40 mg capsule,delayed 40 mg PO DAILY #30 caps 02/23/25 Rx release oxycodone-acetaminophen 10 mg-325 1 tab PO QID #120 tabs 02/23/25 Rx mg tablet (Percocet) New Prescriptions to Start Prescriptions: furosemide Belle,Zuly A omeprazole Belle,Zuly A oxycodone-acetaminophen [Percocet] Bux,Jose D Allergies Allergy/AdvReac Type Severity Reaction Status Date / Time morphine (MORPHINE) Allergy Unknown Unknown Verified 12/20/24 09:10 allergy reaction bee venom protein (honey bee) Allergy Anaphylaxis Verified 12/20/24 09:10 Assessment and Plan *Assessment and plan (1) Lumbar radiculopathy: Status: Chronic Category: Medical Code(s): M54.16 - Radiculopathy, lumbar region (2) Degenerative disc disease, lumbar: Status: Chronic Category: Medical Code(s): M51.369 - Other intervertebral disc degeneration, lumbar region without mention of lumbar back pain or lower extremity pain (3) Bilateral knee pain: Status: Acute Category: Medical Code(s): M25.561 - Pain in right knee; M25.562 - Pain in left knee Plan Patient is a pleasant 59-year-old female who presents today for intrathecal we did discuss at length regarding his knee pain. He does state that he has had this in the past and that it just occasionally has more flareups. Patient was counseled that we do not typically do the fluid pills however that we can do a temporary dose of Lasix. Patient states he has had this in the past and its worked well. We will do 40 mg daily with a 30-day supply and also send in refills on his omeprazole 40 mg and refills on his Percocet. Patient was counseled that we do not fill out time off/disability paperwork unless he has had a recent surgery with's and that due to that fact we would have him send this information to primary care. Patient agrees with this plan of care. Patient will return to clinic in 1 month for reevaluation of symptoms and plan of care. Risks and benefits of the medication have been explained in detail to the patient. The patient does understand the risk of dependence on the medication when given over a prolonged period. Patient has been advised of risks of oversedation with the prescribed medication. Narcan has been offered to the paitent in the event of oversedation. Patient has been advised that a family member should also be educated regarding administration of Narcan. The patient has been advised to consult with his/her primary care provider and pharmacist regarding drug-drug interaction of medications currently prescribed. Patient has been prescribed a controlled substance after being counseled on the medication, medication safety, and possible side effects. Opioid contract was reviewed and signed by the patient, and that they have agreed to all of the terms set forth by our compliance program. A UDS is needed to verify patient's compliance with our office pain contract. This is ordered based off specific treatments related to chronic pain with the potential to abuse certain medications. Patient has been instructed to contact the clinic with any concerns before the next appointment. Dr. Quinones has reviewed this note and agrees with this plan of care. This note was dictated using voice recognition software and make contain errors or omissions.
[2025-02-23 15:37] VITALS: BP 129/85; PULSE 63; RESP 14; O2SAT 99; BMI 47.8
== END 2025-02-23 23:59 | disposition home or self-care (01) ==
PROVIDERS: PCP Family Medicine; Visit Provider Nurse Practitioner Family
DX: M51.16 Intervertebral disc disorders with radiculopathy, lumbar region (principal); M25.561 Pain in right knee; M25.562 Pain in left knee; F17.210 Nicotine dependence, cigarettes, uncomplicated
CPT/HCPCS: 99212; G0463

== ENCOUNTER 2025-03-28 11:08 | Outpatient (POV) | payer OTHER, SELFPAY ==
--- NOTE | 2025-03-28 12:00 | EXP.PAIN.SOA ---
[facility] Disclaimer: The information contained in this section may have been updated after the patient was seen, as this information can be updated by other users. Medical History Colonoscopy planned Implantable intrathecal infusion pump present Rheumatoid arthritis History of chest pain Surgical History History of hernia repair [place] teeth extracted History of cholecystectomy Family History Family/Other Colon cancer Other Family history of diabetes mellitus type II Family history of hyperlipidemia Family history of hypertension Social History Smoking Status: Current every day smoker tobacco type: cigarettes packs per day: 1 second hand exposure: No alcohol intake: never substance use type: denies use current occupational status: other Travel in the last 8 weeks?: None household members: other housing: house lives independently: Yes marital status: education level: college service: No current occupational exposures/hazards: No caffeine: Yes special marilin needs: No agree to transfusion: No do you feel safe at home: Yes victim of physical abuse: No victim of emotional abuse: No victim of sexual abuse: No would you like helpful sources: No PM Subjective & Objective Subjective Subjective:: Patient is a pleasant 44-year-old male who presents today for medication refill and follow-up. Today he rates his pain a 7 out of 10. Patient denies any new falls or injuries. He does state that he has had more pain here recently because he has been caring for his mother. She ended up having a procedure for stents in her kidneys but had been diagnosed with double pneumonia. He does state that the fluid pills that we did send down really did make a big difference and that he is not taking them daily but every other day. Patient is currently managed with [id number] mg 4 times a day and methocarbamol 500 mg 3 times daily as needed. We have sent omeprazole 40 mg daily as a convenience for patient. He denies any side effects from these medications. His Perry has been reviewed and is appropriate. Review of Systems: General: No recent weight changes, no fever, no sleep disturbances Respiratory: No cough, no shortness of air, no recurring pulmonary infections Cardiovascular/peripheral vascular: No chest pain, no palpitations, no edema, no shortness of breath Gastrointestinal: No new onset incontinence, normal bowel movements reported Genitourinary: No new onset incontinence Musculoskeletal: Low back pain Psychiatric: [Normal mood/affect] Neurological: [Denies weakness in extremities], [denies balance issues] Pain at rest (0-10 scale): 7 Objective Objective:: Physical Exam: General: Alert and oriented x3, no acute distress, pleasant and cooperative Lungs: Respirations even and unlabored, symmetrical chest expansion Eyes: PERRL Musculoskeletal: Flexion and extension of lumbar [spine] somewhat guarded secondary to pain, [antalgic gait noted] Neurological: Speech clear, no gross sensory deficit Has patient had previous pain injection?: No Conservative treatment options previously tried: Prescription medications Length of treatment: Longer than 12 weeks Meds Home Medications and Allergies Home Medications ?Medication ?Instructions ?Recorded ?Confirmed ?Type etanercept 50 mg/mL (1 mL) 50 mg SQ WEEKLY 11/15/24 02/23/25 History subcutaneous syringe (Enbrel) methocarbamol 500 mg tablet 500 mg PO TID #90 tabs 11/28/24 02/23/25 Rx pregabalin 100 mg capsule 100 mg PO TID PRN . #90 caps 11/28/24 02/23/25 Rx furosemide 40 mg tablet 40 mg PO DAILY #30 tabs 02/23/25 Rx omeprazole 40 mg capsule,delayed 40 mg PO DAILY #30 caps 02/23/25 Rx release oxycodone-acetaminophen 10 mg-325 1 tab PO QID #120 tabs 02/23/25 Rx mg tablet (Percocet) New Prescriptions to Start Prescriptions: Allergies Allergy/AdvReac Type Severity Reaction Status Date / Time morphine (MORPHINE) Allergy Unknown Unknown Verified 12/20/24 09:10 allergy reaction bee venom protein (honey bee) Allergy Anaphylaxis Verified 12/20/24 09:10 Assessment and Plan *Assessment and plan (1) Lumbar radiculopathy: Status: Chronic Category: Medical Code(s): M54.16 - Radiculopathy, lumbar region (2) Degenerative disc disease, lumbar: Status: Chronic Category: Medical Code(s): M51.369 - Other intervertebral disc degeneration, lumbar region without mention of lumbar back pain or lower extremity pain Plan I will refill the patient's Percocet methocarbamol provided 1 month supply of this medication. Patient will return to clinic in 1 month for reevaluation of symptoms and plan of care. Risks and benefits of the medication have been explained in detail to the patient. The patient does understand the risk of dependence on the medication when given over a prolonged period. Patient has been advised of risks of oversedation with the prescribed medication. Narcan has been offered to the paitent in the event of oversedation. Patient has been advised that a family member should also be educated regarding administration of Narcan. The patient has been advised to consult with his/her primary care provider and pharmacist regarding drug-drug interaction of medications currently prescribed. Patient has been prescribed a controlled substance after being counseled on the medication, medication safety, and possible side effects. Opioid contract was reviewed and signed by the patient, and that they have agreed to all of the terms set forth by our compliance program. A UDS is needed to verify patient's compliance with our office pain contract. This is ordered based off specific treatments related to chronic pain with the potential to abuse certain medications. Patient has been instructed to contact the clinic with any concerns before the next appointment. Dr. Quinones has reviewed this note and agrees with this plan of care. This note was dictated using voice recognition software and make contain errors or omissions.
[2025-03-28 13:01] VITALS: BP 137/98; PULSE 80; RESP 14; O2SAT 97; BMI 47.8
== END 2025-03-28 23:59 | disposition home or self-care (01) ==
PROVIDERS: PCP Family Medicine; Visit Provider Nurse Practitioner Family
DX: M51.16 Intervertebral disc disorders with radiculopathy, lumbar region (principal); Z79.891 Long term (current) use of opiate analgesic; Z79.899 Other long term (current) drug therapy
CPT/HCPCS: 99212; G0463

== ENCOUNTER 2025-05-01 09:50 | Outpatient (POV) | payer OTHER, SELFPAY ==
--- OUTSIDE RECORDS SUMMARY | 2025-05-01 10:03 | XMS_ITS | Clinical Summary ---
Author Organization [facility] Address [address] [facility] [place] [address] [id number] Phone Care Team Providers Care Data Entry Name Role Phone Drew SONG, Chap[place] Unavailable [phone] Conditions or Problems Problem Name Problem Code Onset Date Status Entry Date Provider Comment Standard Description Annotate BACK PAIN, LUMBAR [id number] (SNOMED CT) Active Sandra Muse MA Low back pain Medications Medication Instructions Start Date Stop Date Generic Name [facility] [place] Provider CARISOPRODOL TABS [facility] 4 CARISOPRODOL TABS [id number] Sandra Muse MA GABAPENTIN TABS [facility] 4 GABAPENTIN TABS [id number] Sandra Muse MA METHOCARBAMOL TABS [facility] 4 METHOCARBAMOL TABS [id number] Sandra Muse MA METAXALONE TABLET [facility] 4 METAXALONE TABS [id number] Sandra Muse MA HYDROCODONE-ACETA MINOPHEN TABS [facility] 4 HYDROCODONE-ACET AMINOPHEN TABS [id number] Sandra Muse MA MELOXICAM TABS [facility] [facility] 4 MELOXICAM TABS [phone] Sandra Muse MA Medications Administered No information available. Allergies, Adverse Reactions, Alerts Allergy Name Reaction Description Start Date Severity Statu s Provider MORPHINE Critical Sandra dan MA Results No information available. Plan of Care No information available. Procedures No information available. Vital Signs Date Name Value Unit Description BMI (Body Mass Index) 39.88 kg/m2 Bod y Mass Index (Ratio) Height 70 [in_us] height E&M Weight Measured 278 [lb_av] weight E& M Weight Measured 278 [lb_av] weight E& M Immunizations No information available. Advance Directives No information available.
--- OUTSIDE RECORDS SUMMARY | 2025-05-01 10:04 | XMS_ITS | Encounter Summary ---
Author Organization Healthcare Address [address] [place] [address] Care Team Providers Care White Mixing Operator Name Role Phone Nacho Bronson MD Primary Care Provider + [phone] Reason for Visit * Reason Comments Med Refill Encounter Details Date Type Department Care Team (Late st Contact Info) Description 02/24/2022 Refill [facility] [address] [place] [phone] Omega Carrington, DO [address] [place] [phone] Myofascial pain syndrome Social History Tobacco Use Types Packs/Day Years Used Date Smoking Tobacco: Every Day Cigarettes Smokeless Tobacco: Never Alcohol Use Standard Drinks/Week Comments No 0 (1 standard drink = 0.6 oz pur e alcohol) PHQ-2 Answer Date Recorded Patient Health Questionnaire-2 Score 0 01/03/2022 Sex and Gender Information Value Date Recorded Sex Assigned at Male 04/17/2021 5:44 PM EDT Legal Sex Male 6:55 PM EDT Gender Identity Male 04/17/2021 5:44 PM EDT Sexual Orientation Straight 04/17/2021 5: 44 PM EDT documented as of this encounter Plan of Treatment Not on file documented as of this encounter Visit Diagnoses Diagnosis Myofascial pain syndrome Unspecified myalgia and myositis documented in this encounter Additional Health Concerns Assessment Noted Time A fall risk assessment has been complete d for the patient 09/27/2021 9:24 AM EST documented as of this encounter Care Teams White Mixing Operator Relationship Specialty Start Date End Date Nacho Bronosn MD [address] [place] [facility] [address] [id number] PCP - General 03/08/21 documented as of this encounter
--- OUTSIDE RECORDS SUMMARY | 2025-05-01 10:04 | XMS_ITS | Encounter Summary ---
Author Organization [employer] ([place], [place], [place], [place]) Address [address] [place] [address] Care Team Providers Care Event Lighting Specialist Name Role Phone Unavailable Primary Care Provider Unavailabl e Encounter Details Date Type Department Care Team (Late st Contact Info) Description 08/01/2020 Transcribed Document [facility] [place] [facility] [place] [address] ProviderTaylor MD [address] [place] [address] Social History Tobacco Use Types Packs/Day Years Used Date Smoking Tobacco: Never Assessed Sex and Gender Information Value Date Recorded Sex Assigned at Male 04/22/2022 8:45 PM CDT Legal Sex Male 8:45 PM CDT Gender Identity Male 04/22/2022 8:45 PM CDT Sexual Orientation Not on file documented as of this encounter Miscellaneous Notes * Cerner Conversion Note - Historical ProviderMD - 08/01/2020 1:46 PM CDT DATE OF ADMISSION: 08/01/2020 HISTORY OF PRESENT ILLNESS: This is a 39-year-old male with a chief complaint of his chronic generalized pain involving multiple joints of his upper and lower extremity as well as his neck and lower back for several years' duration. The patient describes most of his pain as a constant combination of throbbing, burning, stabbing, aching pain localized in multiple joint areas in his body including shoulders, elbows, wrist, hip, knees, and both ankles with occasional pain for his lower part of the neck and lower back. The patient denied any tingling, numbness, weakness, or change in his bowel or bladder control. He mentioned that his average pain 8/10 to 9/10, and the pain increased by sitting, bending forward, bending backwards, climbing stairs, moving from sitting to standing, lifting, driving, walking, laying, twisting. The patient has not found anything to help him with his pain. He tried TENS unit, heat, cold, acupuncture, physical therapy, chiropractor, exercise, massage therapy without much improvement. The patient had a history of joint pain and he was diagnosed with rheumatoid arthritis in 2017. He has more flare-up recently, so he was referred to [facility] corn lab technician. They confirm about his rheumatoid arthritis and they start him on methotrexate. So far, the patient has not gotten any major benefit and he is going to see the corn lab technician soon. He was referred to our clinic for further evaluation. ALLERGY: No known detected allergy. The patient's records showed that the Morphine CURRENT MEDICATIONS: 1. Methotrexate. 2. Folic acid. 3. Omeprazole. 4. Flonase. PAST SURGICAL HISTORY: Had cholecystectomy, wisdom teeth removal. PAST MEDICAL HISTORY: Heart disease, rheumatic disease, rheumatoid arthritis diagnosed in 2018, pneumonitis, history of right upper extremity electrocution injury, syncopal episode. FAMILY HISTORY: Diabetes, high blood pressure, heart disease, bowel problem, kidney, thyroid disease, cancer, asthma, stroke, migraine and sleep problem. SOCIAL HISTORY: The patient currently is not working. Smokes a pack a day for 20 years. Denied drinking alcohol or using illegal drugs went up to 12 years in school. , has one son. REVIEW OF SYSTEMS: CONSTITUTIONAL: Fever, weight loss, and excessive sweating. RESPIRATORY: Shortness of breath. GASTROINTESTINAL: Constipation, diarrhea. EAR, NOSE, AND THROAT: Sinus pressure. MUSCULOSKELETAL: Joint pain, muscle ache, joint stiffness, limping. NEUROLOGIC: Weakness, numbness, difficulty walking, burning, tingling. PSYCHIATRY: Excessive worrying, depression. ENDOCRINE: Increased thirst. Constitutional, respiratory, cardiovascular, ophthalmology, gastrointestinal, genitourinary, ENT, musculoskeletal, integumentary, neurology, psychiatry, endocrine, hematology were unremarkable. PHYSICAL EXAMINATION: VITAL SIGNS: Blood pressure 150/100, pulse is 86, temperature 98.6, respirations 16, saturation 97%. Height 6 feet 0 inch, his weight 349. Visual analogue scale is 8/10. The patient is alert, oriented to people, time, place. Patient has mild to moderate pain behavior and discomfort. The rest of physical examination including HEENT, heart, lungs and abdomen were unremarkable. The patient is overweight. He has antalgic gait. He has some difficulty walking toes and heels bilaterally. Flexion and extension of the neck and trunk is moderately limited causing mild pain in flexion and extension. Examination of the neck and back revealed mild tenderness on bilateral cervical and lumbosacral facet area. The patient has multiple myofascial pain in the neck, mid and lower back with the multiple trigger points. He also has some Enrique signs positive. Examination of the bilateral shoulder, elbows, wrist, knee and ankle joint: On inspection of the joint, the joint showed no swelling, deformity, or discoloration. Mild palpation revealed no allodynia or paresthesia. Deep palpation revealed mild tenderness on the joint area. Movement of the joint is mildly limited to all directions. NEUROLOGICAL: Cranial nerves II through XII were unremarkable. Motors 5/5 bilateral symmetrical in the upper and lower extremities. Sensory grossly nonfocal in the upper and lower extremities. Deep tendon reflex +1/4 bilateral symmetrical in the upper and lower extremities. Straight leg raise negative bilaterally. IMAGING STUDIES: The patient has MRI to the pelvis showed negative MRI to the SI joint with and without contrast. ASSESSMENT: 1. Multiple joint and polyarthritis pain. 2. History of inflammatory arthropathy. 3. Patient's recently followup with the corn lab technician, on methotrexate. 4. Obesity. PLAN: 1. I have lengthy discussion with the patient regard to his condition, I mentioned to the patient I do not think the patient is a candidate for any interventional treatment because of his pain is multiple joint area and there is no one single area that we can target by interventional management to get the patient quick help and relief for his pain. 2. I described to the patient that our clinic was set up for more interventional treatment and will not set up for long-term opioid medication for any long-acting controlled medicine, and with his condition of overweight, the patient has to be more vigilant and needs to be more followed up and to avoid any sedating medicine and affect his breathing, especially if he has a sleep apnea, which I do not see any study in that regard. 3. My recommendation is nonopioid regimen of medication which include anti-inflammatory medicine, and to try different NSAIDs, muscle relaxants like Flexeril or tizanidine, antineuropathic medication like Neurontin or Lyrica, and antidepressant medications like amitriptyline or Cymbalta, and I will leave it to the discretion of the family physician. 4. I encouraged the patient to continue with the Rheumatology Clinic since I think that putting the patient on the right dose of methotrexate can give the patient some improvement with his pain. 5. I am going to send the patient back to their family physician since there is nothing else I can do to help the patient and I apologize for any inconvenience. If you have any questions or you need further information, please do not hesitate to contact our clinic. The patient has been screened for symptoms or risk factors related to COVID-19 both prior to arrival for the visit and upon arrival at the clinic for the visit today. No risk factors or symptoms are identified at today's visit and the patient has been afebrile. /[id number] Ronan Peter MD, LIO Pain Certified KR/WALTER / PRASANNA / BRANDIN CC: Nacho Bronson M.D. documented in this encounter Plan of Treatment Not on file documented as of this encounter Visit Diagnoses Not on filedocumented in this encounter
--- OUTSIDE RECORDS SUMMARY | 2025-05-01 10:04 | XMS_ITS | Clinical Summary ---
Author Organization [facility] Address [address] [place] [address] Phone Care Team Providers Care Service Counter Cashier Name Role Phone Unavailable Primary Care Provider Unavailabl e Social History Tobacco Use Types Packs/Day Years Used Date Smoking Tobacco: Never Assessed Sex and Gender Information Value Date Recorded Sex Assigned at Not on file Legal Sex Male 5:09 AM EDT Gender Identity Not on file Sexual Orientation Not on file Plan of Treatment Health Maintenance Due Date Last Done Comments Annual Wellness Exam 1982 DTaP/TDaP/Td (1 - Tdap) 1998 Hepatitis B Vaccine (1 of 3 - 19+ 3-dose series) 1998 COVID-19 Vaccine (2023-2 5 season) 2024 Cologuard 2024 Colon Cancer Screening 2024 Colonoscopy 2024 FIT 2024 Sigmoidoscopy 2024 Virtual Colonography 2024 Influenza Vaccine (#1) 2025 Meningococcal B Vaccine Aged Out No l onger eligible based on patient's age to complete this topic Pneumococcal Vaccine 0-49 Aged Out No longer eligible based on patient's age to complete this topic [place] [address] [place] [id number] [employer] [facility] [place] [address] [employer] [place] [address]
--- OUTSIDE RECORDS SUMMARY | 2025-05-01 10:04 | XMS_ITS | Referral Summary ---
Author Organization [employer] ([place], [place], [place], [place]) Address [address] [place] [address] Care Team Providers Care Continuous Improvement Coordinator Name Role Phone Unavailable Primary Care Provider Unavailabl e Social History Tobacco Use Types Packs/Day Years Used Date Smoking Tobacco: Never Assessed Sex and Gender Information Value Date Recorded Sex Assigned at Male 04/22/2022 8:45 PM CDT Legal Sex Male 8:45 PM CDT Gender Identity Male 04/22/2022 8:45 PM CDT Sexual Orientation Not on file Plan of Treatment Not on file
--- OUTSIDE RECORDS SUMMARY | 2025-05-01 10:04 | XMS_ITS | Clinical Summary ---
Author Organization [employer] ([place] Address [address] [place] [address] Care Team Providers Care News Assignment Editor Name Role Phone Unavailable Primary Care Provider [...]
--- OUTSIDE RECORDS SUMMARY | 2025-05-01 10:04 | XMS_ITS | Encounter Summary ---
Author Organization Healthcare Address [address] [place] [address] Care Team Providers Care Line Closer Name Role Phone Nacoh Bronson MD Primary Care Provider + [phone] Reason for Visit * Reason Onset Date Comments Med Refill 09/22/2023 Encounter Details Date Type Department Care Team (Late st Contact Info) Description 09/22/2023 Refill [facility] [address] [place] [phone] Antonio Gracia MD [address] [place] [phone] Rheumatoid arthritis, seropositive, multiple sites (CMS/FORMERLY [facility]) (Primary Dx) Social History Tobacco Use Types Packs/Day Years Used Date Smoking Tobacco: Every Day Cigarettes 0.5 34.5 Started: 1990 Smokeless Tobacco: Never Alcohol Use Standard Drinks/Week Comments No 0 (1 standard drink = 0.6 oz pur e alcohol) PHQ-2 Answer Date Recorded Patient Health Questionnaire-2 Score 0 07/07/2022 Sex and Gender Information Value Date Recorded Sex Assigned at Male 04/17/2021 5:44 PM EDT Legal Sex Male 6:55 PM EDT Gender Identity Male 04/17/2021 5:44 PM EDT Sexual Orientation Straight 04/17/2021 5: 44 PM EDT documented as of this encounter Miscellaneous Notes * Telephone Encounter - Antonio Gracia MD - 09/22/2023 10:11 AM EST If you do not mind clarify and make sure that he doesn't take them both. Thanks documented in this encounter Plan of Treatment Not on file documented as of this encounter Visit Diagnoses Diagnosis Rheumatoid arthritis, seropositive, multiple sites (CMS/FORMERLY [facility])- Primary documented in this encounter Additional Health Concerns Assessment Noted Time A fall risk assessment has been complete d for the patient 07/07/2022 12:34 PM EDT A Body Mass Index follow-up plan has been documented for the patient 08/24/2023 5:16 PM EDT documented as of this encounter Care Teams Line Closer Relationship Specialty Start Date End Date Nacho Bronson MD [address] [place] [address] PCP - General 03/08/21 documented as of this encounter
--- OUTSIDE RECORDS SUMMARY | 2025-05-01 10:04 | XMS_ITS | Clinical Summary ---
Author Organization [facility] Address [address] [place] [address] Care Team Providers Care Practice Clinician Name Role Phone Nacho Bronson MD Primary Care Provider + [phone] Allergies Active Allergy Reactions Criticality Noted Date Comments Bee Venom Other - please docum ent in the comment field Low 01/13/2019 Morphine Other - please docum ent in the comment field Low 07/04/2022 Medications fluticasone (Flonase) 50 MCG/ACT nasal spray Administer into each nostril 1 (one) time each day. 0 Active omeprazole (PriLOSEC) [address] capsule Take 1 capsule (40 mg) by mouth 1 (one) time each day. 0 Active furosemide (Lasix) 40 MG tablet Take 1 tablet (40 mg) by mouth 1 (one) time each day. 1 Active potassium chloride ER (Micro-K) 10 MEQ ER capsule Take 1 capsule (10 mEq) by mouth 1 (one) time each day. 1 Active HYDROmorphone (Dilaudid) liquid Take by mouth. Activ e oxyCODONE-aceta minophen (Percocet) 10-325 MG tablet 4 Active predniSONE (Deltasone) 2.5 MG tabletIndicatio ns:Seropositive rheumatoid arthritis of multiple sites (CMS/HCC) Take 1 tablet (2.5 mg) by mouth 1 (one) time each day if needed (Arthralgia with stiffnesss or swelling). 90 tablet 1 4 Active Upadacitinib ER (Rinvoq) 15 MG tablet sustained-relea se 24 hourIndications :Seropositive rheumatoid arthritis of multiple sites (CMS/HCC) Take 1 tablet (15 mg) by mouth 1 (one) time each day. 30 tablet 3 4 Active ibuprofen 800 MG tabletIndicatio ns:Seropositive rheumatoid arthritis of multiple sites (CMS/HCC) Take 1 tablet (800 mg) by mouth every 8 (eight) hours if needed for mild pain. 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 023 Immunizations Immunization Administration Dates Next Due TD (adult), 2 Lf tetanus tox oid, preservative free, adsorbed 02/23/1996 Zoster, Recombinant 02/29/2024 Family History Medical History Relation Name Comments Conversions - Other Other 1 Degenera tive disc disease at L5-S1 level Diabetes Other 2 Other cancer Other 3 Osteoporosis Other 4 Rheum arthritis Other 5 Conversions - Other Other 6 High blo od cholesterol Conversions - Other Other 7 Knee marcus nt replacement status Relation Name Status Comments Other 1 Other 2 Other 3 Other 4 Other 5 Other 6 Other 7 Social History Tobacco Use Types Packs/Day Years Used Date Smoking Tobacco: Every Day Cigarettes 0.5 34.5 Started: 1990 Smokeless Tobacco: Never Alcohol Use Standard Drinks/Week Comments No 0 (1 standard drink = 0.6 oz pur e alcohol) PHQ-2 Answer Date Recorded Patient Health Questionnaire-2 Score 0 02/29/2024 Sex and Gender Information Value Date Recorded Sex Assigned at Male 04/17/2021 5:44 PM EDT Legal Sex Male 6:55 PM EDT Gender Identity Male 04/17/2021 5:44 PM EDT Sexual Orientation Straight 04/17/2021 5: 44 PM EDT Last Filed Vital Signs Vital Sign Reading Time Taken Comments Blood Pressure 125/76 02/29/2024 1:53 PM EDT Pulse 66 02/29/2024 1:53 PM EDT Temperature 36.6 C (97.8 F) 02/29/2024 1:53 PM EDT Respiratory Rate 16 02/29/2024 1:53 PM EDT Oxygen Saturation 95% 02/29/2024 1:53 PM EDT Inhaled Oxygen Concentration - - Weight 142 kg (313 lb 11.4 oz) 02/29/2024 1:53 P M EDT Height 182.9 cm (6') 02/29/2024 1:53 PM EDT Body Mass Index 42.55 02/29/2024 1:53 PM EDT Plan of Treatment Health Maintenance Due Date Last Done Comments [facility]-/Child/Adol SDOH Screenings 1979 [id number] Vaccine (#1) 1984 [facility]-Varicella Vaccines (1 of 2 - 13+ 2-dose series) 1992 HPV Vaccines (1 - Male 3-dos e series) 1994 UKY-DTaP,Tdap,and Td Vaccine s (2 - Tdap) 02/24/1996 02/23/1996 UKY- SDOH Screenings 1997 UKY-Adult SDOH Screenings 1997 UKY-Hepatitis B Vaccines (1 of 3 - 19+ 3-dose series) 1998 UKY-Zoster Vaccines (2 of 2) 04/25/2024 02/29/2024 CT Colonography 2024 Colonoscopy 2024 FIT-DNA 2024 FIT 2024 FOBT 2024 Sigmoidoscopy 2024 UKY-Colorectal Cancer Screening 2024 UKY-Depression Screening 02/28/2025 02/29/2024 UKY-Influenza Vaccine (#1) 2025 UKY-HIV Screening Completed 01/08/2021 UKY-Hepatitis C Screening Completed 2020, 06/01/2020 UKY-Obesity Intervention Completed 024, 08/24/2023, 07/07/2022 UKY-HIB Vaccines Aged Out No longer e ligible based on patient's age to complete this topic UKY-Hepatitis A Vaccines Aged Out No longer eligible based on patient's age to complete this topic UKY-IPV Vaccines Aged Out No longer e ligible based on patient's age to complete this topic UKY-Pneumococcal Vaccine: Pediatrics (0 to 5 Years) and At-Risk Patients (6 to 49 Years) Aged Out No longer eligible b ased on patient's age to complete this topic UKY-Rotavirus Vaccines Aged Out No lo nger eligible based on patient's age to complete this topic Procedures Procedure Name Priority Date/Time Associated Diagnosis Comments ACUTE HEPATITIS PANEL Routine 01/08/2021 11:00 AM EDT HIV 1/2 ANTIBODY/ANTIGEN SCREEN WITH REFLEX TO HIV I/II DIFFERENTIATION Routine 01/08/2021 11:00 AM EDT from Last 3 Months or Most Recently Relevant to Health Maintenance Results * HIV 1 & 2 Antibody/Antigen Screen (01/08/2021 11:00 AM EDT) HIV 1 Result NONREACTIVE Screening for HIV 1 and 2 antibodies is NONREACTIVE. No confirmatory testing is required. SUNQUEST 01/08/2021 11:0 0 AM EDT 01/08/2021 11:58 AM EDT [email or web address] ADHESIVE BANDAGE MACHINE OPERATOR LAB BLOOD ORDERABLES Final Res ult SUNQUEST * Acute Hepatitis Panel (01/08/2021 11:00 AM EDT) Hepatitis B Surf Antigen NEGATIVE Reference Value: Negative SUNQUEST Hepatitis C Antibody NEGATIVE Reference Range: Negative SUNQUEST Hepatitis A Antibody IgM NEGATIVE Reference Value: Negative SUNQUEST External Hepatitis B Core IgM (HBCM) NEGATIVE Reference Value: Negative SUNQUEST 01/08/2021 11:0 0 AM EDT 01/08/2021 11:58 AM EDT [email or web address] LAB BLOOD ORDERABLES Final Res ult SUNQUEST from Last 3 Months or Most Recently Relevant to Health Maintenance Care Teams Practice Clinician Relationship Specialty Start Date End Date Nacho Bronson MD [facility] [address] [address] PCP - General 5/14/21
--- NOTE | 2025-05-01 10:05 | EXP.PAIN.SOA ---
[facility] Disclaimer: The information contained in this section may have been updated after the patient was seen, as this information can be updated by other users. Medical History Colonoscopy planned Implantable intrathecal infusion pump present Rheumatoid arthritis History of chest pain Surgical History History of hernia repair [place] teeth extracted History of cholecystectomy Family History Family/Other Colon cancer Other Family history of diabetes mellitus type II Family history of hyperlipidemia Family history of hypertension Social History Smoking Status: Current every day smoker tobacco type: cigarettes packs per day: 1 second hand exposure: No alcohol intake: never substance use type: denies use current occupational status: other Travel in the last 8 weeks?: None household members: other housing: house lives independently: Yes marital status: education level: college service: No current occupational exposures/hazards: No caffeine: Yes special marilin needs: No agree to transfusion: No do you feel safe at home: Yes victim of physical abuse: No victim of emotional abuse: No victim of sexual abuse: No would you like helpful sources: No Have you lived/traveled outside US in past 30 days?: No Contact w/someone who lives/traveled outside US past 30 days?: No Exposure to someone with infectious disease in past 14 days?: No Do you have a fever (greater than 100.4 F or 38 C)?: No Have you tested positive for COVID-19?: No Exposed to someone with COVID-19 in past 14 days?: No Do you have a sore throat?: No Do you have a cough?: No Do you have any weakness?: No Do you have any diarrhea?: No Are you experiencing any unusual bleeding?: No Do you have any muscle aches/pain?: No Do you have any abdominal pain?: No Are you experiencing loss of taste or smell?: No PM Subjective & Objective Subjective Subjective:: Patient is a pleasant 44-year-old male who presents today for medication refill and follow-up. Today he denies any new falls or injuries from our last appointment. He does state that he did go through a flareup of his RA and he pretty much was in bed from Thursday to Thursday. He does state that he is feeling a little bit better today. He states when those flareups occur he is just very limited on what he can do. Patient is currently managed with Percocet 10 mg 4 times a day, methocarbamol 500 mg 3 times a day along with our office did recently send prescriptions of omeprazole 40 mg daily and Lasix 40 mg daily due to the patient not being able to get into his primary care. His Perry has been reviewed and is appropriate. Review of Systems: General: No recent weight changes, no fever, no sleep disturbances Respiratory: No cough, no shortness of air, no recurring pulmonary infections Cardiovascular/peripheral vascular: No chest pain, no palpitations, no edema, no shortness of breath Gastrointestinal: No new onset incontinence, normal bowel movements reported Genitourinary: No new onset incontinence Musculoskeletal: Chronic back pain Psychiatric: [Normal mood/affect] Neurological: [Denies weakness in extremities], [denies balance issues] Pain at rest (0-10 scale): 8 Objective Objective:: Physical Exam: General: Alert and oriented x3, no acute distress, pleasant and cooperative Lungs: Respirations even and unlabored, symmetrical chest expansion Eyes: PERRL Musculoskeletal: Flexion and extension of lumbar [spine] somewhat guarded secondary to pain, [antalgic gait noted] Neurological: Speech clear, no gross sensory deficit Has patient had previous pain injection?: No Conservative treatment options previously tried: Prescription medications Length of treatment: Longer than 12 weeks Meds Home Medications and Allergies Home Medications ?Medication ?Instructions ?Recorded ?Confirmed ?Type etanercept 50 mg/mL (1 mL) 50 mg SQ WEEKLY 11/15/24 03/28/25 History subcutaneous syringe (Enbrel) pregabalin 100 mg capsule 100 mg PO TID PRN . #90 caps 11/28/24 03/28/25 Rx furosemide 40 mg tablet 40 mg PO DAILY #30 tabs 02/23/25 03/28/25 Rx omeprazole 40 mg capsule,delayed 40 mg PO DAILY #30 caps 02/23/25 03/28/25 Rx release methocarbamol 500 mg tablet 500 mg PO TID #90 tabs 03/28/25 Rx oxycodone-acetaminophen 10 mg-325 1 tab PO QID #20 tabs 04/06/25 Rx mg tablet (Percocet) oxycodone-acetaminophen 10 mg-325 1 tab PO QID #120 tabs 05/01/25 Rx mg tablet (Percocet) New Prescriptions to Start Prescriptions: oxycodone-acetaminophen [Percocet] Bux,Jose D Allergies Allergy/AdvReac Type Severity Reaction Status Date / Time morphine (MORPHINE) Allergy Unknown Unknown Verified 12/20/24 09:10 allergy reaction bee venom protein (honey bee) Allergy Anaphylaxis Verified 12/20/24 09:10 Assessment and Plan *Assessment and plan (1) Degenerative disc disease, lumbar: Status: Chronic Category: Medical Code(s): M51.369 - Other intervertebral disc degeneration, lumbar region without mention of lumbar back pain or lower extremity pain (2) Lumbar radiculopathy: Status: Chronic Category: Medical Code(s): M54.16 - Radiculopathy, lumbar region Plan Will refill the patient's Percocet and methocarbamol provided a month supply of this medication. Patient will return to clinic in 1 month for reevaluation of symptoms and plan of care. Risks and benefits of the medication have been explained in detail to the patient. The patient does understand the risk of dependence on the medication when given over a prolonged period. Patient has been advised of risks of oversedation with the prescribed medication. Narcan has been offered to the paitent in the event of oversedation. Patient has been advised that a family member should also be educated regarding administration of Narcan. The patient has been advised to consult with his/her primary care provider and pharmacist regarding drug-drug interaction of medications currently prescribed. Patient has been prescribed a controlled substance after being counseled on the medication, medication safety, and possible side effects. Opioid contract was reviewed and signed by the patient, and that they have agreed to all of the terms set forth by our compliance program. A UDS is needed to verify patient's compliance with our office pain contract. This is ordered based off specific treatments related to chronic pain with the potential to abuse certain medications. Patient has been instructed to contact the clinic with any concerns before the next appointment. Dr. Quinones has reviewed this note and agrees with this plan of care. This note was dictated using voice recognition software and make contain errors or omissions.
[2025-05-01 10:21] VITALS: BP 132/83; PULSE 81; RESP 12; O2SAT 96; BMI 47.8
== END 2025-05-01 23:59 | disposition home or self-care (01) ==
PROVIDERS: PCP Family Medicine; Visit Provider Nurse Practitioner Family
DX: M51.16 Intervertebral disc disorders with radiculopathy, lumbar region (principal); Z79.891 Long term (current) use of opiate analgesic; Z79.899 Other long term (current) drug therapy
CPT/HCPCS: 99212; G0463

== ENCOUNTER 2025-05-31 15:23 | Outpatient (POV) | payer OTHER, MEDICAID, SELFPAY ==
--- OUTSIDE RECORDS SUMMARY | 2025-05-31 15:28 | XMS_ITS | Clinical Summary ---
Author Organization [facility] Address [address] [place] [address] Care Team Providers Care Sampler Radioactive Waste Name Role Phone Nacho Bronson MD Primary Care Provider + [phone] Allergies Active Allergy Reactions Criticality Noted Date [...] Date Smoking Tobacco: Every Day Cigarettes 0.5 34.6 Started: 1990 Smokeless Tobacco: Never Alcohol Use [...] Health Maintenance Due Date Last Done Comments [facility]-Infant/Child/Adol SDOH Screenings 1979 [id number] Vaccine (#1) 1984 [facility]-Varicella Vaccines (1 of [...] 0 AM EDT 01/08/2021 11:58 AM EDT [facility] LAB BLOOD ORDERABLES Final Res ult SUNQUEST * Acute Hepatitis Panel (01/08/2021 11:00 AM EDT) Hepatitis B Surf Antigen NEGATIVE Reference Value: Negative SUNQUEST Hepatitis C Antibody NEGATIVE Reference Range: Negative SUNQUEST Hepatitis A Antibody IgM NEGATIVE Reference Value: Negative SUNQUEST External Hepatitis B Core IgM (HBCM) NEGATIVE Reference Value: Negative SUNQUEST 01/08/2021 11:0 0 AM EDT 01/08/2021 11:58 AM EDT [facility] LAB BLOOD ORDERABLES Final Res ult SUNQUEST from Last 3 Months or Most Recently Relevant to Health Maintenance Care Teams Sampler Radioactive Waste Relationship Specialty Start Date End Date Nacho Bronson MD [facility] [address] [address] PCP - General 5/14/21
--- OUTSIDE RECORDS SUMMARY | 2025-05-31 15:28 | XMS_ITS | Clinical Summary ---
Author Organization [employer] [facility] ([place], [place], [place], [place]) Address [address] [place] [address] Care Team Providers Care Slackman Name Role Phone Unavailable Primary Care Provider [...]
--- OUTSIDE RECORDS SUMMARY | 2025-05-31 15:28 | XMS_ITS | Encounter Summary ---
Author Organization Healthcare Address [address] [place] [address] Care Team Providers Care Electrode Turner And Finisher Name Role Phone Nacho Bronson MD Primary Care Provider + [phone] Reason for Visit * Reason Comments Med Refill Encounter Details Date Type Department Care Team (Late st Contact Info) Description 02/24/2022 Refill [facility] [address] [place] [phone] Omega Carrington, DO [address] [place] [address] Myofascial pain syndrome Social History Tobacco Use [...] documented as of this encounter Care Teams Electrode Turner And Finisher Relationship Specialty Start Date End Date Nacho Bronson MD [address] [place] [facility] [address] [place] [id number] PCP - General 03/08/21 documented as of this encounter
--- OUTSIDE RECORDS SUMMARY | 2025-05-31 15:28 | XMS_ITS | Referral Summary ---
Author Organization [facility] ([place]) Address [address] [place] [address] Care Team Providers Care Multicultural Manager Name Role Phone Unavailable Primary Care Provider [...]
--- OUTSIDE RECORDS SUMMARY | 2025-05-31 15:28 | XMS_ITS | Clinical Summary ---
Author Organization [facility] Address [address] [place] [address] Phone Care Team Providers Care Bezel Cutter Name Role Phone Unavailable Primary Care Provider [...] patient's age to complete this topic [place] [place] [id number] [employer] [facility] [place] [address] [employer] [facility] [place] [address]
--- OUTSIDE RECORDS SUMMARY | 2025-05-31 15:28 | XMS_ITS | Encounter Summary ---
Author Organization [facility] Address [address] [place] [address] Care Team Providers Care Fitness Attendant Name Role Phone Nacho Bronson MD Primary Care Provider + [phone] Reason for Visit * Reason Onset Date Comments Med Refill 09/22/2023 Encounter Details Date Type Department Care Team (Late st Contact Info) Description 09/22/2023 Refill [facility] [address] [place] [phone] Antonio Gracia MD [address] [place] [phone] Rheumatoid arthritis, seropositive, multiple sites (CMS/[facility]) (Primary Dx) Social History Tobacco Use [...] Diagnoses Diagnosis Rheumatoid arthritis, seropositive, multiple sites (CMS/[facility])- Primary documented in this encounter Additional Health Concerns Assessment Noted Time A fall risk assessment has been complete d for the patient 07/07/2022 12:34 PM EDT A Body Mass Index follow-up plan has been documented for the patient 08/24/2023 5:16 PM EDT documented as of this encounter Care Teams Fitness Attendant Relationship Specialty Start Date End Date Nacho Bronson MD [address] [place] [address] PCP - General 03/08/21 documented as of this encounter
--- OUTSIDE RECORDS SUMMARY | 2025-05-31 15:28 | XMS_ITS | Encounter Summary ---
Author Organization [employer] ([place], [place], [place], [place]) Address [address] [place] [address] Care Team Providers Care Senior Business Development Manager Name Role Phone Unavailable Primary Care Provider Unavailabl e Encounter Details Date Type Department Care Team (Late st Contact Info) Description 08/01/2020 Transcribed Document [facility] [place] [address] ProviderTaylor MD [address] [place] [id number] Social History Tobacco Use Types Packs/Day [...] flare-up recently, so he was referred to [facility] manager vehicle. They confirm about his rheumatoid arthritis and they start him on methotrexate. So far, the patient has not gotten any major benefit and he is going to see the manager vehicle soon. He was referred to our clinic [...] arthropathy. 3. Patient's recently followup with the manager vehicle, on methotrexate. 4. Obesity. PLAN: 1. I [...] visit and the patient has been afebrile. /[id number] Ronan Peter MD, LIO Pain Certified KR/WALTER / PRASANNA / BRANDIN CC: Nacho Bronson M.D. documented in this encounter Plan of Treatment Not on file documented as of this encounter Visit Diagnoses Not on filedocumented in this encounter
--- OUTSIDE RECORDS SUMMARY | 2025-05-31 15:28 | XMS_ITS | Clinical Summary ---
Author Organization [facility] Address [address] [facility] [address] [place] [phone] Phone Care Team Providers Care Hot Stamp Operator Name Role Phone Drew SONG, [place] Unavailable [phone] Conditions or Problems Problem Name Problem Code Onset Date Status Entry Date Provider Comment Standard Description Annotate BACK PAIN, LUMBAR [id number] (SNOMED CT) Active Sandra Muse MA Low back pain Medications Medication Instructions Start Date Stop Date Generic Name [facility] Provider CARISOPRODOL TABS [facility] 4 CARISOPRODOL TABS [id number] Sandra Muse MA GABAPENTIN TABS [facility] 4 GABAPENTIN TABS [id number] Sandra Muse MA METHOCARBAMOL TABS [facility] 4 METHOCARBAMOL TABS [id number] Sandra Muse MA METAXALONE TABLET Non-Jay 4 METAXALONE TABS [id number] Sandra Muse MA HYDROCODONE-ACETA MINOPHEN TABS [facility] 4 HYDROCODONE-ACET AMINOPHEN TABS [phone] Sandra Muse MA MELOXICAM TABS [facility] 4 MELOXICAM TABS [phone] Sandra Muse MA Medications Administered No information [...]
[2025-05-31 15:44] VITALS: BP 118/87; PULSE 82; RESP 14; O2SAT 95; BMI 48.5
--- NOTE | 2025-05-31 15:53 | EXP.PAIN.SOA ---
[facility] Disclaimer: The information contained in this section may have been updated after the patient was seen, as this information can be updated by other users. Medical History Colonoscopy planned Implantable intrathecal infusion pump present Rheumatoid arthritis History of chest pain Surgical History History of hernia repair [place] teeth extracted History of cholecystectomy Family History Family/Other Colon cancer Other Family history of diabetes mellitus type II Family history of hyperlipidemia Family history of hypertension Social History Smoking Status: Current every day smoker tobacco type: cigarettes packs per day: 1 pack-years: 15 second hand exposure: No alcohol intake: never substance use type: denies use current occupational status: other Travel in the last 8 weeks?: None household members: other housing: house lives independently: Yes marital status: education level: college service: No current occupational exposures/hazards: No caffeine: Yes special marilin needs: No agree to transfusion: No do you feel safe at home: Yes victim of physical abuse: No victim of emotional abuse: No victim of sexual abuse: No would you like helpful sources: No PM Subjective & Objective Subjective Subjective:: Patient is a pleasant 44-year-old male who presents today for medication refill and follow-up. Today he rates his pain an 8 out of 10. Patient states he is having a lot of pain with both of his knees that is just more achy sensation and worse with increased activity. He also mentions more pain along his right elbow. He does state that none of this is new it is just progressively worsening. Patient is currently managed from our office with methocarbamol 500 mg 3 times daily, Percocet 10 mg 4 times a day and compounded cream. He denies any side effects. He does state that he would be interested in injections for his knees as they are interfering with his ability perform activities of daily living such as cooking and cleaning. His Perry has been reviewed and is appropriate. Review of Systems: General: No recent weight changes, no fever, no sleep disturbances Respiratory: No cough, no shortness of air, no recurring pulmonary infections Cardiovascular/peripheral vascular: No chest pain, no palpitations, no edema, no shortness of breath Gastrointestinal: No new onset incontinence, normal bowel movements reported Genitourinary: No new onset incontinence Musculoskeletal: Bilateral knee pain, right elbow pain, chronic back pain Psychiatric: [Normal mood/affect] Neurological: [Denies weakness in extremities], [denies balance issues] Pain at rest (0-10 scale): 8 Objective Objective:: Physical Exam: General: Alert and oriented x3, no acute distress, pleasant and cooperative Lungs: Respirations even and unlabored, symmetrical chest expansion Eyes: PERRL Musculoskeletal: Flexion and extension of bilateral knees somewhat guarded secondary to pain, [antalgic gait noted] Neurological: Speech clear, no gross sensory deficit Has patient had previous pain injection?: No Conservative treatment options previously tried: Home exercise plan Length of treatment: Longer than 12 weeks Meds Home Medications and Allergies Home Medications ?Medication ?Instructions ?Recorded ?Confirmed ?Type etanercept 50 mg/mL (1 mL) 50 mg SQ WEEKLY 11/15/24 05/31/25 History subcutaneous syringe (Enbrel) pregabalin 100 mg capsule 100 mg PO TID PRN . #90 caps 11/28/24 05/31/25 Rx furosemide 40 mg tablet 40 mg PO DAILY #30 tabs 02/23/25 05/31/25 Rx omeprazole 40 mg capsule,delayed 40 mg PO DAILY #30 caps 02/23/25 05/31/25 Rx release oxycodone-acetaminophen 10 mg-325 1 tab PO QID #20 tabs 04/06/25 05/31/25 Rx mg tablet (Percocet) methocarbamol 500 mg tablet 500 mg PO TID #90 tabs 05/01/25 05/31/25 Rx oxycodone-acetaminophen 10 mg-325 1 tab PO QID #120 tabs 05/01/25 05/31/25 Rx mg tablet (Percocet) New Prescriptions to Start Prescriptions: Allergies Allergy/AdvReac Type Severity Reaction Status Date / Time morphine (MORPHINE) Allergy Unknown Unknown Verified 12/20/24 09:10 allergy reaction bee venom protein (honey bee) Allergy Anaphylaxis Verified 12/20/24 09:10 Assessment and Plan *Assessment and plan (1) Bilateral knee pain: Status: Acute Category: Medical Code(s): M25.561 - Pain in right knee; M25.562 - Pain in left knee Plan I did discuss with the patient due to the worsening bilateral knee pain that he may benefit from intra-articular knee injections. Risk and benefits were discussed with the patient and he would like to proceed forward with this plan of care. Patient has tried and failed conservative therapy including oral medications, heat and ice, topicals, at home stretching exercise for longer than 12 weeks. This is a chronic pain that has gone on for longer than 6 months. I will refill his Percocet and methocarbamol. Patient will return to clinic in 1 month for his bilateral knee intra-articular injections without fluoroscopic or ultrasound guidance. Risks and benefits of the medication have been explained in detail to the patient. The patient does understand the risk of dependence on the medication when given over a prolonged period. Patient has been advised of risks of oversedation with the prescribed medication. Narcan has been offered to the paitent in the event of oversedation. Patient has been advised that a family member should also be educated regarding administration of Narcan. The patient has been advised to consult with his/her primary care provider and pharmacist regarding drug-drug interaction of medications currently prescribed. Patient has been prescribed a controlled substance after being counseled on the medication, medication safety, and possible side effects. Opioid contract was reviewed and signed by the patient, and that they have agreed to all of the terms set forth by our compliance program. A UDS is needed to verify patient's compliance with our office pain contract. This is ordered based off specific treatments related to chronic pain with the potential to abuse certain medications. Patient has been instructed to contact the clinic with any concerns before the next appointment. Dr. Quinones has reviewed this note and agrees with this plan of care. This note was dictated using voice recognition software and make contain errors or omissions.
== END 2025-05-31 23:59 | disposition home or self-care (01) ==
PROVIDERS: PCP Family Medicine; Visit Provider Nurse Practitioner Family
DX: M25.561 Pain in right knee (principal); M25.562 Pain in left knee; Z79.891 Long term (current) use of opiate analgesic; Z79.899 Other long term (current) drug therapy
CPT/HCPCS: 99212; G0463

== ENCOUNTER 2025-06-20 14:17 | Outpatient (CLI) | payer OTHER, MEDICAID, SELFPAY ==
--- OUTSIDE RECORDS SUMMARY | 2025-06-20 14:30 | XMS_ITS | Clinical Summary ---
Author Organization [facility] Address [address] [place] [address] Phone Care Team Providers Care Pit Operator Name Role Phone Unavailable Primary Care Provider [...] patient's age to complete this topic [place] [address] [id number] [employer] [facility] [place] [employer]
--- OUTSIDE RECORDS SUMMARY | 2025-06-20 14:30 | XMS_ITS | Encounter Summary ---
Author Organization Healthcare Address [address] [place] [address] Care Team Providers Care Shell Trim Tool Setter Name Role Phone Nacho Bronson MD Primary Care Provider + [phone] Reason for Visit * Reason Onset Date Comments Med Refill 09/22/2023 Encounter Details Date Type Department Care Team (Late st Contact Info) Description 09/22/2023 Refill [facility] [address] [place] [address] Antonio Gracia MD [address] [place] [phone] Rheumatoid arthritis, seropositive, multiple sites (CMS/[facility]) (Primary Dx) Social History Tobacco Use Types [...] documented in this encounter Plan of Treatment Upcoming Encounters Date Type Department Care Team (Late st Contact Info) Description 06/28/2025 9:00 AM EDT Office Visit [facility] [address] [place] [phone] Pamela Mitchell MD [address] [place] [address] documented as of this encounter Visit Diagnoses Diagnosis Rheumatoid arthritis, seropositive, multiple sites (CMS/[facility])- Primary documented in this encounter Additional Health Concerns Assessment Noted Time A fall risk assessment has been complete d for the patient 07/07/2022 12:34 PM EDT A Body Mass Index follow-up plan has been documented for the patient 08/24/2023 5:16 PM EDT documented as of this encounter Care Teams Shell Trim Tool Setter Relationship Specialty Start Date End Date Nacho Br[place] MD [address] [facility] [address] [place] [address] PCP - General 03/08/21 documented as of this encounter
--- OUTSIDE RECORDS SUMMARY | 2025-06-20 14:30 | XMS_ITS | Clinical Summary ---
Author Organization [facility] Address [address] [facility] [address] [place] [id number] Phone Care Team Providers Care Electric Power Line Repairer Name Role Phone Drew SONG, Chaparro Grubbs [phone] Conditions or Problems Problem Name Problem Code Onset Date Status Entry Date Provider Comment Standard Description Annotate BACK PAIN, LUMBAR [id number] (SNOMED CT) Active Sandra Muse MA Low back pain Medications Medication Instructions Start Date Stop Date Generic Name [facility] Provider CARISOPRODOL TABS [facility] 4 CARISOPRODOL TABS [id number] Sandra Muse MA GABAPENTIN TABS [facility] 4 GABAPENTIN TABS [id number] Sandra Muse MA METHOCARBAMOL TABS [facility] 4 METHOCARBAMOL TABS [id number] Sandra Muse MA METAXALONE TABLET [facility] 4 METAXALONE TABS [id number] Sandra Muse MA HYDROCODONE-ACETA MINOPHEN TABS [facility] 4 HYDROCODONE-ACET AMINOPHEN TABS [phone] Sandra Muse MA MELOXICAM TABS [facility] 4 MELOXICAM TABS [phone] Sandra Muse MA Medications Administered No information [...]
--- OUTSIDE RECORDS SUMMARY | 2025-06-20 14:30 | XMS_ITS | Encounter Summary ---
Author Organization [employer] ([place], [place], [place], [place]) Address [address] [place] [address] Care Team Providers Care Athletic Coach Name Role Phone Unavailable Primary Care Provider Unavailabl e Encounter Details Date Type Department Care Team (Late st Contact Info) Description 08/01/2020 Transcribed Document [facility] Family Medicine [facility] [place] [address] ProviderTaylor MD [address] [place] [address] Social History Tobacco Use Types Packs/Day [...] flare-up recently, so he was referred to [facility] team lead. They confirm about his rheumatoid arthritis and they start him on methotrexate. So far, the patient has not gotten any major benefit and he is going to see the team lead soon. He was referred to our clinic [...] arthropathy. 3. Patient's recently followup with the team lead, on methotrexate. 4. Obesity. PLAN: 1. I [...] visit and the patient has been afebrile. /[id number] Ronan Peter MD, LIO Pain Certified KR/WALTER / PRASANNA / BRANDIN CC: Nacho Bronson M.D. Electronically signed by Ryanne Mariscal Conversion Mail Processing Machine Operator Cerner at 02/09/2023 6:58 PM CDT documented in this encounter Plan of Treatment Not on file documented as of this encounter Visit Diagnoses Not on filedocumented in this encounter
--- OUTSIDE RECORDS SUMMARY | 2025-06-20 14:30 | XMS_ITS | Encounter Summary ---
Author Organization Healthcare Address [address] [place] [address] Care Team Providers Care Stage Electrician Name Role Phone Nacho Bronson MD Primary Care Provider + [phone] Reason for Visit * Reason Comments Med Refill Encounter Details Date Type Department Care Team (Late st Contact Info) Description 02/24/2022 Refill [facility] [address] [place] [address] Omega Carrington, DO [address] [place] [phone] Myofascial pain syndrome Social History Tobacco Use [...] as of this encounter Plan of Treatment Upcoming Encounters Date Type Department Care Team (Late st Contact Info) Description 06/28/2025 9:00 AM EDT [facility] Visit [facility] [address] [place] [phone] Pamela Mitchell MD [address] [facility] [address] [place] [address] documented as of this encounter Visit Diagnoses Diagnosis Myofascial pain syndrome Unspecified myalgia and myositis documented in this encounter Additional Health Concerns Assessment Noted Time A fall risk assessment has been complete d for the patient 09/27/2021 9:24 AM EST documented as of this encounter Care Teams Stage Electrician Relationship Specialty Start Date End Date Nacho Bronson MD [address] [place] [address] PCP - General 03/08/21 documented as of this encounter
--- OUTSIDE RECORDS SUMMARY | 2025-06-20 14:30 | XMS_ITS | Clinical Summary ---
Author Organization [facility] Address [address] [place] [address] Care Team Providers Care Avionics System Engineer Name Role Phone Nacho Bronson MD Primary Care Provider + [phone] Allergies Active Allergy Reactions Criticality Noted Date [...] 02/29/2024 1:53 PM EDT Plan of Treatment Upcoming Encounters Date Type Department Care Team (Late st Contact Info) Description 06/28/2025 9:00 AM EDT Office Visit [facility] [address] [place] [address] Pamela Mitchell MD [address] [address] Health Maintenance Due Date Last Done Comments [facility]-/Child/Adol SDOH Screenings 1979 [id number] Vaccine (#1) 1984 [facility]-Varicella Vaccines (1 of 2 - 13+ 2-dose series) 1992 [facility]-DTaP,Tdap,and Td Vaccine s (2 - Tdap) 02/24/1996 02/23/1996 [facility]- SDOH Screenings 1997 [facility]-Adult SDOH Screenings 1997 [facility]-Hepatitis B Vaccines (1 of 3 - 19+ 3-dose series) 1998 HPV Vaccines (1 - 3-dose SCD M series) 2006 [facility]-Zoster Vaccines (2 of 2) 04/25/2024 02/29/2024 [...] 0 AM EDT 01/08/2021 11:58 AM EDT Celia De Jesus APRN LAB BLOOD ORDERABLES Final Res ult SUNQUEST * Acute Hepatitis Panel (01/08/2021 11:00 AM EDT) Hepatitis B Surf Antigen NEGATIVE Reference Value: Negative SUNQUEST Hepatitis C Antibody NEGATIVE Reference Range: Negative [facility]QUEST Hepatitis A Antibody IgM NEGATIVE Reference Value: Negative [facility]QUEST External Hepatitis B Core IgM (HBCM) NEGATIVE Reference Value: Negative [facility] 01/08/2021 11:0 0 AM EDT 01/08/2021 11:58 AM EDT us Celia Neal RESPIRATORY CARE TECHNICIAN LAB BLOOD ORDERABLES Final Res ult SUNQUEST from Last 3 Months or Most Recently Relevant to Health Maintenance Insurance [employer] MEDICAID Care Teams Avionics System Engineer Relationship Specialty Start Date End Date Nacho Br[place] MD [address] [place] [address] PCP - General 03/08/21
--- OUTSIDE RECORDS SUMMARY | 2025-06-20 14:30 | XMS_ITS | Referral Summary ---
Author Organization [employer] ([place], [place], [place], [place]) Address [address] [place] [address] Care Team Providers Care Human Resources Psychologist Name Role Phone Unavailable Primary Care Provider [...]
--- OUTSIDE RECORDS SUMMARY | 2025-06-20 14:30 | XMS_ITS | Clinical Summary ---
Author Organization [employer] ([place], [place], [place], [place]) Address [address] [place] [address] Care Team Providers Care Top Stop Attacher Name Role Phone Unavailable Primary Care Provider [...]
[2025-06-20 15:24] LABS: Hematocrit 45.9 % (42.0-52.0); Hemoglobin 14.9 g/dL (14.1-18.0); Immature Granulocytes % 0.4 %; Mean Corpuscular HGB Conc 32.5 g/dL (31.8-35.4); Mean Corpuscular Hemoglobin 28.1 pg (27.0-31.2); Mean Corpuscular Volume 86.4 fl (80-94); Nucleated Red Blood Cells % 0 %; Platelet Count 362 K/mm3 (142-424); Red Blood Count 5.31 M/mm3 (4.60-6.20); Red Cell Distribution Width-SD 43.0 fL; White Blood Count 14.6 K/mm3 (4.8-10.8)
[2025-06-20 16:14] LABS: Alanine Aminotransferase 38 U/L (12-78); Albumin Level 4.3 g/dl (3.5-5.0); Albumin/Globulin Ratio 1.5 (1.1-1.8); Alkaline Phosphatase 83 U/L (38-126); Anion Gap 16.2 mEq/L (5-15); Aspartate Amino Transferase 33 U/L (17-59); Bilirubin,Total 0.5 mg/dl (0.2-1.3); Blood Urea Nitrogen 8 mg/dl (9-20); Calcium 8.9 mg/dl (8.4-10.2); Carbon Dioxide 18 mmol/L (22.0-30.0); Chloride 109 mmol/L (98-107); Cholesterol 260 mg/dl (140-200); Creatinine,Serum 0.80 mg/dl (0.66-1.25); Estimated Glomerular Filt Rate 105 ml/min (>60); GFR (African American) 126 ML/MIN (>60); Globulin 2.8 g/dL (1.3-3.2); Glucose 99 mg/dl (74-100); HDL Cholesterol 31 mg/dl (40-60); Potassium 4.2 mmoL/L (3.5-5.1); Sodium 139 mmol/L (136-145); Total Protein,Serum 7.1 g/dl (6.3-8.2); Triglycerides 205 mg/dl (30-150)
[2025-06-20 16:27] LABS: NT Pro Brain Natriuretic Pep. 44.0 pg/mL (0-125)
[2025-06-20 16:44] LABS: RBC Morphology Normal; Troponin I < 0.01 ng/ml (0.00-0.034)
[2025-06-20 16:45] LABS: Total Cells Counted 100
[2025-06-20 16:46] LABS: Thyroid Stimulating Hormone 3.80 uIU/mL (0.465-4.68)
[2025-06-20 17:05] LABS: Vitamin B12 383 pg/mL (239-931)
== END 2025-06-20 23:59 | disposition home or self-care (01) ==
LOC: LAB 14:18
PROVIDERS: PCP Nurse Practitioner; Visit Provider Nurse Practitioner
DX: E78.5 Hyperlipidemia, unspecified (principal); R06.02 Shortness of breath; R42 Dizziness and giddiness; I10 Essential (primary) hypertension
CPT/HCPCS: 36415; 80053; 80061; 82043; 82570; 82607; 83880; 84443; 84484; 85007; 85025

== ENCOUNTER 2025-06-21 11:29 | Outpatient (CLI) | payer OTHER, MEDICAID, SELFPAY ==
--- OUTSIDE RECORDS SUMMARY | 2025-06-21 11:32 | XMS_ITS | Clinical Summary ---
Author Organization [facility] Address [address] [place] [address] Phone Care Team Providers Care Profiler Name Role Phone Unavailable Primary Care Provider [...] patient's age to complete this topic [place] [address] [id number] [employer] [facility] [place] [address] [employer] [place]
--- OUTSIDE RECORDS SUMMARY | 2025-06-21 11:32 | XMS_ITS | Encounter Summary ---
Author Organization Healthcare Address [address] [place] [address] Care Team Providers Care Junior Mechanical Engineer Name Role Phone Nacho Bronson MD Primary Care Provider + [phone] Reason for Visit * Reason Comments Med Refill Encounter Details Date Type Department Care Team (Late st Contact Info) Description 02/24/2022 Refill [facility] [address] [place] [address] Omega Carrington, DO [address] [place] [phone] Myofascial pain syndrome Social History Tobacco Use [...] Description 06/28/2025 9:00 AM EDT Office Visit [facility] [address], [address] [place] [phone] Pamela Mitchell MD [address] [facility] [address] [place] [address] documented as of this encounter Visit Diagnoses Diagnosis Myofascial pain syndrome Unspecified myalgia and myositis documented in this encounter Additional Health Concerns Assessment Noted Time A fall risk assessment has been complete d for the patient 09/27/2021 9:24 AM EST documented as of this encounter Care Teams Junior Mechanical Engineer Relationship Specialty Start Date End Date Nacho Bronson MD [address] [place] [address] PCP - General 03/08/21 documented as of this encounter
--- OUTSIDE RECORDS SUMMARY | 2025-06-21 11:32 | XMS_ITS | Clinical Summary ---
Author Organization [employer] ([place], [place], [place], [place]) Address [address] [place] [address] Care Team Providers Care Wire Basket Maker Name Role Phone Unavailable Primary Care Provider [...]
--- OUTSIDE RECORDS SUMMARY | 2025-06-21 11:32 | XMS_ITS | Clinical Summary ---
Author Organization [facility] Address [address] [facility] [address] [place] [id number] Phone Care Team Providers Care Tactical Debriefer Officer Name Role Phone Drew SONG, Chaparro Unavailable [phone] Conditions or Problems Problem Name Problem Code Onset Date Status Entry Date Provider Comment Standard Description Annotate BACK PAIN, LUMBAR [id number] (SNOMED CT) Active Sandra Muse MA Low back pain Medications Medication Instructions Start Date Stop Date Generic Name [facility] Provider CARISOPRODOL TABS [facility] 4 CARISOPRODOL TABS [id number] Sandra Muse MA GABAPENTIN TABS [facility] 4 GABAPENTIN TABS [id number] Sandra Muse MA METHOCARBAMOL TABS [facility] 4 METHOCARBAMOL TABS [id number] Sandra Muse MA METAXALONE TABLET [facility] 4 METAXALONE TABS [id number] Sandra Muse MA HYDROCODONE-ACETA MINOPHEN TABS [facility] 4 HYDROCODONE-ACET AMINOPHEN TABS [id number] Sandra Muse MA MELOXICAM TABS [facility] 4 MELOXICAM TABS [phone] Sandra Muse MA Medications Administered No information [...]
--- OUTSIDE RECORDS SUMMARY | 2025-06-21 11:32 | XMS_ITS | Encounter Summary ---
Author Organization Healthcare Address [address] [place] [address] Care Team Providers Care Mobility Specialist Name Role Phone Nacho Bronson MD Primary Care Provider + [phone] Reason for Visit * Reason Onset Date Comments Med Refill 09/22/2023 Encounter Details Date Type Department Care Team (Late st Contact Info) Description 09/22/2023 Refill [facility] [address] [place] [address] Antonio Gracia MD [address] [place] [phone] Rheumatoid arthritis, seropositive, multiple sites (CMS/[facility]) (Primary Dx) Social History Tobacco Use Types Packs/Day Years Used Date Smoking Tobacco: Every Day Cigarettes 0.5 34.7 Started: 1990 Smokeless Tobacco: Never Alcohol Use [...] Description 06/28/2025 9:00 AM EDT Office Visit [facility] Medicine Specialties [address], [address] [place] [phone] Pamela Mitchell MD [address] [place] [address] documented as of this encounter Visit Diagnoses Diagnosis Rheumatoid arthritis, seropositive, multiple sites (CMS/[facility])- Primary documented in this encounter Additional Health Concerns Assessment Noted Time A fall risk assessment has been complete d for the patient 07/07/2022 12:34 PM EDT A Body Mass Index follow-up plan has been documented for the patient 08/24/2023 5:16 PM EDT documented as of this encounter Care Teams Mobility Specialist Relationship Specialty Start Date End Date Nacho Bronson MD [address] [facility] [address] [place] [address] PCP - General 03/08/21 documented as of this encounter
--- OUTSIDE RECORDS SUMMARY | 2025-06-21 11:33 | XMS_ITS | Encounter Summary ---
Author Organization [employer] ([place], [place], [place], [place]) Address [address] [place] [address] Care Team Providers Care Project Internship Name Role Phone Unavailable Primary Care Provider Unavailabl e Encounter Details Date Type Department Care Team (Late st Contact Info) Description 08/01/2020 Transcribed Document [facility] Family Medicine [facility] [place] [address] ProviderTaylor MD [address] [place] [address] Social History Tobacco Use Types Packs/Day [...] flare-up recently, so he was referred to [facility] offender job retention specialist. They confirm about his rheumatoid arthritis and they start him on methotrexate. So far, the patient has not gotten any major benefit and he is going to see the offender job retention specialist soon. He was referred to our clinic [...] arthropathy. 3. Patient's recently followup with the offender job retention specialist, on methotrexate. 4. Obesity. PLAN: 1. I [...] visit and the patient has been afebrile. /[id number] Ronan Peter MD, LIO Pain Certified KR/WALTER / PRASANNA / BRANDIN CC: Nacho Bronson M.D. documented in this encounter Plan of Treatment Not on file documented as of this encounter Visit Diagnoses Not on filedocumented in this encounter
--- OUTSIDE RECORDS SUMMARY | 2025-06-21 11:33 | XMS_ITS | Referral Summary ---
Author Organization [employer] ([place]) Address [address] [place] [address] Care Team Providers Care Mental Health Therapist Name Role Phone Unavailable Primary Care Provider [...]
--- OUTSIDE RECORDS SUMMARY | 2025-06-21 11:33 | XMS_ITS | Clinical Summary ---
Author Organization [facility] Address [address] [place] [address] Care Team Providers Care Tutor Coordinator Name Role Phone Nacho Bronson MD Primary Care Provider + [phone] Allergies Active Allergy Reactions Criticality Noted Date [...] Description 06/28/2025 9:00 AM EDT Office Visit [facility] [address] [place] [address] Pamela Mitchell MD [address] [address] Health Maintenance Due Date Last Done Comments [facility]-/Child/Adol SDOH Screenings 1979 [id number] Vaccine (#1) 1984 [facility]-Varicella Vaccines (1 of [...] 01/08/2021 11:58 AM EDT us Celia Neal TRIAL JUDGE LAB BLOOD ORDERABLES Final Res ult [facility]QUEST from Last 3 Months or Most Recently Relevant to Health Maintenance Insurance [employer] MEDICAID Care Teams Tutor Coordinator Relationship Specialty Start Date End Date Nacho Bronson MD [address] [place] [address] PCP - General 03/08/21
--- NOTE | 2025-06-21 11:39 | ECG_ITS ---
APPROVED REPORT Exam: Resting ECG HR:73 bpm ECG Measurements Heart Rate 73 AXES WV 167 P 33 QRSd 86 QRS 49 QT 390 T 58 QTc 416 Conclusion SINUS RHYTHM NONSPECIFIC T-WAVE ABNORMALITY BORDERLINE ECG UNCONFIRMED REPORT Electronically signed by : Luis Albarran MD 06/22/2025 08:37:41
--- NOTE | 2025-06-21 11:43 | XR_ITS ---
FINAL REPORT CLINICAL HISTORY: SOBOE, dizzy COMPARISON: 09/22/2022 FINDINGS: 2 views of the chest were obtained . The heart is normal in size. The mediastinum is within normal limits. The lungs are clear. There is no pneumothorax. Osseous structures are unremarkable. IMPRESSION: No acute cardiopulmonary process. Reviewed, Interpreted and Dictated by Shantelle Morales MD Transcribed by Shadia Olivia Authenticated and [facility]
== END 2025-06-21 23:59 | disposition home or self-care (01) ==
PROVIDERS: PCP Nurse Practitioner; Visit Provider Nurse Practitioner
DX: R94.31 Abnormal electrocardiogram [ECG] [EKG] (principal); R06.02 Shortness of breath; R42 Dizziness and giddiness
CPT/HCPCS: 71046; 93005